=== PATIENT | female | born 2000 | race Caucasian/White ===

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

== ENCOUNTER 2020-07-25 00:40 | Emergency (ER) | payer OTHER, SELFPAY ==
[2020-07-25 00:41] VITALS: BP 140/82; PULSE 53; RESP 14; TEMP 37.1; O2SAT 99; BMI 27.3
--- NOTE | 2020-07-25 00:54 | CT_ITS ---
PROCEDURE INFORMATION: Exam: CT Abdomen And Pelvis With Contrast Exam date and time: 07/25/2020 12:54 AM Age: 19 years old Clinical indication: Abdominal pain; Localized; Patient HX: Lower abd pain TECHNIQUE: Imaging protocol: Computed tomography of the abdomen and pelvis with contrast. Radiation optimization: All CT scans at this facility use at least one of these dose optimization techniques: automated exposure control; mA and/or kV adjustment per patient size (includes targeted exams where dose is matched to clinical indication); or iterative reconstruction. Contrast material: ISOVUE; Contrast volume: 75 ml; Contrast route: IV; COMPARISON: US GALLBLADDER 06/29/2019 8:18 AM FINDINGS: Lungs: The visualized lung bases are clear. Pleural spaces: There are no pleural effusions. Heart: The visualized portions of the heart are unremarkable. There is no evidence of pericardial fluid collections. Liver: The liver demonstrates punctate calcifications, consistent with remote granulomatous organism exposure. There is diffuse decrease in hepatic parenchymal density consistent with fatty infiltration. There is a small region of focal fatty infiltration adjacent to the falciform ligament. Gallbladder and bile ducts: The gallbladder is normal. Pancreas: The pancreas is normal. Spleen: The spleen demonstrates punctate calcifications, consistent with remote granulomatous organism exposure. The spleen is at the upper limits of normal in size. Adrenal glands: The adrenal glands are normal. Kidneys and ureters: The kidneys are normal. Stomach and bowel: Unopacified loops of small bowel within range of normal. The stomach is normal. The duodenum is unremarkable. Lack of gastrointestinal contrast limits evaluation of bowel. The colon is normal. Appendix: No evidence of appendicitis. Intraperitoneal space: No evidence of intraperitoneal free air. There is no evidence of free intraperitoneal or pelvic fluid. Vasculature: There is no evidence of an abdominal aortic aneurysm. Lymph nodes: There are a few scattered small nonspecific lymph nodes in the mesenteric fat of the right lower quadrant and central mesentery, but there are no nodes of pathologic dimensions present. Urinary bladder: There is mild bladder wall thickening. Reproductive: The uterus is normal. The left ovary is normal. The right ovary is normal. Bones/joints: There is no evidence of acute fracture. Soft tissues: No soft tissue swelling is identified. IMPRESSION: 1. Fatty hepatic infiltration. 2. Minor bladder wall thickening suggesting incomplete distention, chronic outflow obstruction or cystitis. 3. A few scattered small nonspecific lymph nodes in the mesenteric fat of the right lower quadrant and central mesentery, but there are no nodes of pathologic dimensions present. Correlate clinically regarding the possibility of mesenteric adenitis.
--- NOTE | 2020-07-25 00:54 | HMH.EDNVD ---
ED Disposition Clinical Impression: Abdominal pain Qualifiers: Abdominal location: generalized Qualified Code(s): R10.84 - Generalized abdominal pain Disposition: Home, Self-Care Condition on Discharge: Good Instructions: DI for Acute Abdominal Pain Additional Instructions: fluids and call pcp for follow up Referrals: Leonie Jung [Primary Care Provider] - - Critical Care Critical Care Time: No Attestation: On 07/25/20, the high probability of a clinically significant, sudden or life threatening deterioration of the following system(s) required my full and direct attention, intervention and personal management. The time I documented below is in addition to time spent performing reported procedures but includes the following listed in this critical care notation. Medical Decision Making - Medical Records Medical records reviewed: Yes: I reviewed the patient's medical records. - Castillo Inquiry Pt receiving controlled substance: No Vital Signs: 07/25/20 00:41 07/25/20 01:00 Temperature 98.7 F Temperature Source Oral Pulse Rate 69 Pulse Rate [Right] 53 L Respiratory Rate 14 Blood Pressure 139/94 H Blood Pressure [Right Arm] 140/82 Blood Pressure Mean 109 Blood Pressure Mean [Right Arm] 101 02 Sat by Pulse Oximetry 99 100 - Lab Data Lab results reviewed: Yes: I reviewed the patient's lab results. Lab Results 07/25/20 00:50: Urine Color Yellow, Urine Appearance Clear, Urine pH 7.0, Ur Specific [place] 1.020, Urine Protein Negative, Urine Glucose (UA) Negative, Urine Ketones Negative, Urine Blood Negative, Urine Nitrate Negative, Urine Bilirubin Negative, Urine Urobilinogen 0.2, Ur Leukocyte Esterase Negative, Urine WBC Occasional, Ur Squamous Epith Cells 3-5, Amorphous Sediment 1+, Urine Bacteria 1+ 07/25/20 00:50: WBC 8.5, RBC 5.05, Hgb 14.8, Hct 44.1, MCV 87.4, MCH 29.3, MCHC 33.6, RDW 13.6, Plt Count 182, MPV 8.5, Neut % (Auto) 54.0, Lymph % (Auto) 40.3, [place] % (Auto) 3.4, Eos % (Auto) 1.7, Baso % (Auto) 0.6, Neut # (Auto) 4.6, Lymph # (Auto) 3.4, [place] # (Auto) 0.3, Eos # (Auto) 0.1, Baso # (Auto) 0.1, ESR 2 07/25/20 00:50: Urine HCG, Qual Negative 07/25/20 00:50: Sodium 139, Potassium 4.0, Chloride 106, Carbon Dioxide 28, Anion Gap 9.0, BUN 7, Creatinine 0.60, Estimated Creat Clear 172, Estimated GFR 129, Est GFR ( Amer) 156, Glucose 103 H, Calcium 9.2, Total Bilirubin 0.4, AST 20, ALT 11 L, Alkaline Phosphatase 47, C-Reactive Protein 1.0, Total Protein 7.3, Albumin 4.6, Globulin 2.7, Albumin/Globulin Ratio 1.7, Amylase 52, Lipase 154, Procalcitonin < 0.030 07/25/20 00:50: Urine Opiates Screen Negative, Urine Methadone Screen Negative, Ur Barbituates Screen Negative, Ur Phencyclidine Scrn Negative, Ur Amphetamines Screen Negative, U Benzodiazepines Scrn Negative, Urine Cocaine Screen Negative, U Marijuana (THC) Screen Positive H Result diagrams: 07/25/20 00:50 07/25/20 00:50 Orders (Tests/Meds): ED MEDICATIONS Generic Name Dose Route Start Last Admin Trade Name Freq PRN Reason Stop Dose Admin Sodium Chloride 1,000 mls @ 999 mls/hr 07/25/20 01:00 07/25/20 01:10 Sod Chlor 0.9% 1000ml Bag IV 07/25/20 02:00 999 mls/hr .Q1H1M BANG Administration Sodium Chloride 8 ml 07/25/20 00:55 Sodium Chloride 0.9% 10ml Vial IV 08/24/20 00:54 NEEDED PRN dilute pepcid Discontinued Medications Generic Name Dose Route Start Last Admin Trade Name Freq PRN Reason Stop Dose Admin Famotidine 20 mg 07/25/20 00:55 07/25/20 01:08 Famotidine 20mg/2ml Vial IV 07/25/20 00:56 20 mg ONCE ONE Administration Iopamidol 75 ml 07/25/20 01:39 07/25/20 01:40 Iopamidol-370 (76%);100ml Bottle IV 07/25/20 01:40 75 ml ONCE ONE Administration Ketorolac Tromethamine 30 mg 07/25/20 00:55 07/25/20 01:08 Ketorolac 30mg/Ml Vial IV 07/25/20 00:56 30 mg ONCE ONE Administration Metoclopramide HCl 10 mg 07/25/20 00:55 07/25/20 01:08 Metoclopramide Hcl 10
[2020-07-25 01:00] VITALS: BP 139/94; PULSE 69; O2SAT 100
[2020-07-25 01:00] LABS: Microscopic, Urine URINE MICROSCOPIC (MICROSCOPIC)
[2020-07-25 01:07] LABS: Appearance,Urine CLEAR (Clear); Bilirubin,Urine Negative (Negative); Blood, Urine Negative (Negative); Color,Urine YELLOW (Yellow); Glucose,Urine (UA) Negative (Negative); Ketones,Urine Negative (Negative); Leukocyte Esterase,Urine Negative (Negative); Nitrate,Urine Negative (Negative); Protein,Urine Negative (Negative); Urine Pregnancy, HCG Qual. Negative (Negative); Urobilinogen,Urine 0.2 EU/dl (0.2)
[2020-07-25 01:11] LABS: Alanine Aminotransferase 11 U/L (12-78); Albumin Level 4.6 g/dl (3.5-5.0); Albumin/Globulin Ratio 1.7 (1.1-1.8); Alkaline Phosphatase 47 U/L (38-126); Amylase 52 U/L (30-110); Aspartate Amino Transferase 20 U/L (14-36); Bilirubin,Total 0.4 mg/dl (0.2-1.3); Blood Urea Nitrogen 7 mg/dl (7-17); Calcium 9.2 mg/dl (8.4-10.2); Carbon Dioxide 28 mmol/L (22.0-30.0); Chloride 106 mmol/L (98-107); Creatinine Clearance Estimated 172 mL/min (50-200); Estimated Glomerular Filt Rate 129 ml/min (>60); GFR (African American) 156 ML/MIN (>60); Globulin 2.7 g/dL (1.3-3.2); Glucose 103 mg/dl (74-100); Lipase 154 U/L (23-300); Sodium 139 mmol/L (136-145); Total Protein,Serum 7.3 g/dl (6.3-8.2)
[2020-07-25 01:21] LABS: Barbiturates Screen,Urine Negative ng/ml (<200)
[2020-07-25 01:22] LABS: Benzodiazepines Screen,Urine Negative ng/ml (<200)
[2020-07-25 01:23] LABS: Amphetamine/Metha Screen,Urine Negative ng/ml (<1000); Cannabinoid Screen,Urine Positive ng/ml (<50)
[2020-07-25 01:24] LABS: Amorphous Sediment,Urine 1+ /lpf; Bacteria,Urine 1+ /lpf; Cocaine Screen,Urine Negative ng/ml (<300); WBC,Urine Occasional #/hpf (0-3)
[2020-07-25 01:25] LABS: Methadone Screen,Urine Negative ng/ml (<300); Opiate Screen,Urine Negative ng/ml (<300)
[2020-07-25 01:26] LABS: Basophils # 0.1 K/mm3 (0-0.2); Basophils % 0.6 % (0.1-2.0); Eosinophils # 0.1 K/mm3 (0.0-0.4); Eosinophils % 1.7 % (0.1-12.0); Hematocrit 44.1 % (37.0-47.0); Hemoglobin 14.8 g/dL (12.2-16.2); Lymphocytes # 3.4 K/mm3 (0.7-4.5); Lymphocytes % 40.3 % (10-50); Mean Corpuscular HGB Conc 33.6 g/dL (31.8-35.4); Mean Corpuscular Hemoglobin 29.3 pg (27.0-31.2); Mean Corpuscular Volume 87.4 fl (81-99); Mean Platelet Volume 8.5 fl (7.4-10.4); Monocytes # 0.3 K/mm3 (0.1-1.0); Monocytes % 3.4 % (1.7-9.3); Neutrophils # 4.6 K/mm3 (1.8-7.8); Phencyclidine Screen,Urine Negative ng/ml (<25); Platelet Count 182 K/mm3 (142-424); Red Blood Count 5.05 M/mm3 (4.20-5.40); Red Cell Distribution Width 13.6 % (11.5-17.5); White Blood Count 8.5 K/mm3 (4.5-13.0)
--- NOTE | 2020-07-25 01:36 | PC.NURSE ---
return from radiology at this time. no incidences noted
[2020-07-25 01:48] LABS: Erythrocyte Sedimentation Rate 2 mm/hr (0-20)
[2020-07-25 01:49] LABS: Procalcitonin < 0.030 ng/mL (0.0-2.0)
[2020-07-25 02:24] VITALS: BP 139/94; PULSE 69; RESP 14; TEMP 37.1; O2SAT 99
== END 2020-07-25 02:27 | disposition home or self-care (01) ==
PROVIDERS: Emergency Provider Emergency Medicine; PCP Family Medicine
DX: R10.84 Generalized abdominal pain (principal); F12.10 Cannabis abuse, uncomplicated
CPT/HCPCS: 74177; 80053; 80305; 81001; 81025; 82150; 83690; 84145; 85025; 85651; 86140; 96365; 96375; 99283; J2405; Q9967

== ENCOUNTER → 2020-08-10 16:38 | Outpatient (CLI) | payer OTHER, SELFPAY ==
[2020-08-10 17:51] LABS: HCG,Quantitative 15 mIU/ml (0-5.42)
== END ==
PROVIDERS: Visit Provider Obstetrics & Gynecology
DX: Z34.90 Encounter for supervision of normal pregnancy, unspecified, unspecified trimester (principal)
CPT/HCPCS: 84702

== ENCOUNTER → 2020-08-17 08:43 | Outpatient (CLI) | payer OTHER, SELFPAY ==
[2020-08-17 10:01] LABS: HCG,Quantitative 284 mIU/ml (0-5.42)
== END ==
PROVIDERS: Visit Provider Obstetrics & Gynecology
DX: Z34.90 Encounter for supervision of normal pregnancy, unspecified, unspecified trimester (principal)
CPT/HCPCS: 36415; 84702

== ENCOUNTER 2020-08-24 09:18 | Emergency (ER) | payer OTHER, SELFPAY ==
[2020-08-24 09:19] VITALS: BP 115/85; PULSE 75; RESP 16; TEMP 36.7; O2SAT 99; BMI 22.3
[2020-08-24 09:40] VITALS: BP 115/85; PULSE 75; RESP 16; TEMP 36.7; O2SAT 99
--- NOTE | 2020-08-24 09:54 | HMH.EDDIZZ ---
ED Disposition Clinical Impression: Dehydration during Disposition: Home, Self-Care Condition on Discharge: Good Instructions: DI for Dehydration -- Adult Additional Instructions: Return to the ED with any development of vomiting or abdominal pain. Recommend following up with [facility] within the next 2 weeks for establishment of care. Referrals: Leonie Jung [Primary Care Provider] - Time of Disposition: 11:28 - Critical Care Critical Care Time: No Attestation: On 08/24/20, the high probability of a clinically significant, sudden or life threatening deterioration of the following system(s) required my full and direct attention, intervention and personal management. The time I documented below is in addition to time spent performing reported procedures but includes the following listed in this critical care notation. Medical Decision Making - Medical Records Medical records reviewed: Yes: I reviewed the patient's medical records. - Castillo Inquiry Pt receiving controlled substance: No Vital Signs: 08/24/20 09:19 08/24/20 09:40 08/24/20 10:00 Temperature 98.0 F 98.0 F Temperature Source Oral Oral Pulse Rate 75 58 L Pulse Rate [Radial] 75 Respiratory Rate 16 16 18 Blood Pressure 115/85 124/76 Blood Pressure [Right Arm] 115/85 Blood Pressure Mean 85 Blood Pressure Mean [Right Arm] 95 02 Sat by Pulse Oximetry 99 99 97 Oxygen Delivery Method Room Air Room Air 08/24/20 10:30 08/24/20 11:00 Temperature Temperature Source Pulse Rate 48 L 52 L Pulse Rate [Radial] Respiratory Rate 19 18 Blood Pressure 130/69 135/77 Blood Pressure [Right Arm] Blood Pressure Mean 86 85 Blood Pressure Mean [Right Arm] 02 Sat by Pulse Oximetry 100 98 Oxygen Delivery Method - Lab Data Lab Results 08/24/20 09:41: Sodium 140, Potassium 4.3, Chloride 108 H, Carbon Dioxide 21 L, Anion Gap 15.3 H, BUN 8, Creatinine 0.50 L, Estimated Creat Clear 168, Estimated GFR 159, Est GFR ( Amer) 192, Glucose 98, Calcium 9.4, Total Bilirubin 0.8, AST 23, ALT 9 L, Alkaline Phosphatase 43, Total Protein 7.6, Albumin 4.9, Globulin 2.7, Albumin/Globulin Ratio 1.8 08/24/20 09:41: Serum HCG, Qual Positive 08/24/20 10:15: WBC 5.9, RBC 4.86, Hgb 14.7, Hct 42.8, MCV 88.0, MCH 30.3, MCHC 34.4, RDW 13.8, Plt Count 148, MPV 9.4, Neut % (Auto) 62.1, Lymph % (Auto) 32.7, [place] % (Auto) 3.2, Eos % (Auto) 1.9, Baso % (Auto) 0.3, Neut # (Auto) 3.7, Lymph # (Auto) 1.9, [place] # (Auto) 0.2, Eos # (Auto) 0.1, Baso # (Auto) 0.0 08/24/20 10:22: Urine Color Dk yellow, Urine Appearance Clear, Urine pH 7.5, Ur Specific [place] 1.025, Urine Protein 2+, Urine Glucose (UA) Negative, Urine Ketones Negative, Urine Blood Negative, Urine Nitrate Negative, Urine Bilirubin Negative, Urine Urobilinogen 1.0, Ur Leukocyte Esterase Negative 08/24/20 10:22: Urine HCG, Qual Positive Result diagrams: 08/24/20 10:15 08/24/20 09:41 Orders (Tests/Meds): ED MEDICATIONS Discontinued Medications Generic Name Dose Route Start Last Admin Trade Name Freq PRN Reason Stop Dose Admin Lactated Ringer's 1,000 mls @ 999 mls/hr 08/24/20 10:00 08/24/20 10:03 Lactated Ringer's 1000 Ml Bag IV 08/24/20 11:00 999 mls/hr .Q1H1M BANG Administration ORDERS Category Date Time Status Urinalysis and Microscopic Stat Lab 08/24/20 10:22 Results - ECG Data Tracing #1 I reviewed this ECG and interpreted as documented below: Normal sinus rhythm with a rate of 52 sinus bradycardia with normal [place] interval and appropriate QT segment with no ST segment changes or evidence of acute ischemia. - Reevaluation(s) Time: 11:27 Reevaluation #1: Patient symptoms improved feels better and is ready to go home. Medical Decision Narrative: Presents with presyncopal orthostatic dizziness with 2 episodes since last night. Patient is approximately 5 to 6 weeks . She is having no nausea or vomiting, abdominal pain, vaginal discharge or d
[2020-08-24 10:00] VITALS: BP 124/76; PULSE 58; RESP 18; O2SAT 97
--- NOTE | 2020-08-24 10:00 | ECG_ITS ---
APPROVED REPORT Exam: Resting ECG HR:52 bpm ECG Measurements Heart Rate 52 AXES SD 114 P 30 QRSd 94 QRS 51 QT 412 T 28 QTc 383 Conclusion Sinus bradycardia Otherwise normal ECG Electronically signed by : Moises Osborn, 08/24/2020 17:00:30
[2020-08-24 10:12] LABS: Sodium 140 mmol/L (136-145)
[2020-08-24 10:13] LABS: HCG Qualitative, Serum Positive (Negative); Potassium 4.3 mmoL/L (3.5-5.1)
[2020-08-24 10:15] LABS: Alanine Aminotransferase 9 U/L (12-78); Aspartate Amino Transferase 23 U/L (14-36); Blood Urea Nitrogen 8 mg/dl (7-17); Creatinine Clearance Estimated 168 mL/min (50-200); Estimated Glomerular Filt Rate 159 ml/min (>60); GFR (African American) 192 ML/MIN (>60)
[2020-08-24 10:16] LABS: Albumin Level 4.9 g/dl (3.5-5.0); Albumin/Globulin Ratio 1.8 (1.1-1.8); Alkaline Phosphatase 43 U/L (38-126); Bilirubin,Total 0.8 mg/dl (0.2-1.3); Calcium 9.4 mg/dl (8.4-10.2); Carbon Dioxide 21 mmol/L (22.0-30.0); Globulin 2.7 g/dL (1.3-3.2); Glucose 98 mg/dl (74-100); Total Protein,Serum 7.6 g/dl (6.3-8.2)
[2020-08-24 10:23] LABS: Basophils % 0.3 % (0.1-2.0); Eosinophils # 0.1 K/mm3 (0.0-0.4); Eosinophils % 1.9 % (0.1-12.0); Hematocrit 42.8 % (37.0-47.0); Hemoglobin 14.7 g/dL (12.2-16.2); Lymphocytes # 1.9 K/mm3 (0.7-4.5); Lymphocytes % 32.7 % (10-50); Mean Corpuscular HGB Conc 34.4 g/dL (31.8-35.4); Mean Corpuscular Hemoglobin 30.3 pg (27.0-31.2); Mean Platelet Volume 9.4 fl (7.4-10.4); Monocytes # 0.2 K/mm3 (0.1-1.0); Monocytes % 3.2 % (1.7-9.3); Neutrophils # 3.7 K/mm3 (1.8-7.8); Neutrophils % 62.1 % (37.0-80.0); Platelet Count 148 K/mm3 (142-424); Red Blood Count 4.86 M/mm3 (4.20-5.40); Red Cell Distribution Width 13.8 % (11.5-17.5); White Blood Count 5.9 K/mm3 (4.5-13.0)
[2020-08-24 10:28] LABS: Anion Gap 15.3 mEq/L (5-15); Chloride 108 mmol/L (98-107)
[2020-08-24 10:30] VITALS: BP 130/69; PULSE 48; RESP 19; O2SAT 100
[2020-08-24 10:33] LABS: Urine Pregnancy, HCG Qual. Positive (Negative)
[2020-08-24 11:00] VITALS: BP 135/77; PULSE 52; RESP 18; O2SAT 98
[2020-08-24 11:13] LABS: Microscopic, Urine URINE MICROSCOPIC (MICROSCOPIC)
[2020-08-24 11:17] LABS: Appearance,Urine CLEAR (Clear); Bilirubin,Urine Negative (Negative); Blood, Urine Negative (Negative); Color,Urine DK YELLOW (Yellow); Glucose,Urine (UA) Negative (Negative); Ketones,Urine Negative (Negative); Leukocyte Esterase,Urine Negative (Negative); Nitrate,Urine Negative (Negative); PH,Urine 7.5 (5.0-8.5); Protein,Urine 2+ (Negative); Specific Gravity, Urine 1.025 (1.005-1.030)
[2020-08-24 11:35] LABS: Squamous Epithelial Cell,Urine Occasional #/hpf (0-5)
[2020-08-24 12:24] VITALS: BP 135/88; PULSE 52; RESP 15; TEMP 36.8; O2SAT 98
== END 2020-08-24 12:28 | disposition home or self-care (01) ==
PROVIDERS: Emergency Provider Student in an Organized Health Care Education/Training Program; PCP Family Medicine
DX: O26.899 Other specified pregnancy related conditions, unspecified trimester (principal); E86.0 Dehydration; Z34.90 Encounter for supervision of normal pregnancy, unspecified, unspecified trimester; F12.10 Cannabis abuse, uncomplicated; R42 Dizziness and giddiness
CPT/HCPCS: 80053; 81001; 81025; 84703; 85025; 93005; 99282; 99283

== ENCOUNTER 2020-10-03 13:19 | Emergency (ER) | payer OTHER, SELFPAY ==
[2020-10-03 13:20] VITALS: BP 126/73; PULSE 72; RESP 16; TEMP 36.7; O2SAT 100; BMI 24.0
--- NOTE | 2020-10-03 13:35 | HMH.EDGENADL ---
ED Disposition Clinical Impression: Vomiting as reason for care in Disposition: Home, Self-Care Condition on Discharge: Good Instructions: DI for Diarrhea and Traveler's Diarrhea -- Adult, DI for Diarrhea and Traveler's Diarrhea -- Child, DI for Nausea -- Adult, DI for Nausea -- Child Additional Instructions: continue home meds . follow up with PCP. increase fluid intake. Retuen to ED if new symptoms or worsening of symptoms. Referrals: Leonie Jung [Primary Care Provider] - - Critical Care Critical Care Time: No Attestation: On , the high probability of a clinically significant, sudden or life threatening deterioration of the following system(s) required my full and direct attention, intervention and personal management. The time I documented below is in addition to time spent performing reported procedures but includes the following listed in this critical care notation. Medical Decision Making - Medical Records MR Comment: yovanny recieved one liter of IV fluid and general labs were ordered.no distress noted. abdominal exam was completely benign. - Castillo Inquiry Pt receiving controlled substance: No Castillo was queried for this patient: No Vital Signs: 10/03/20 13:20 Temperature 98.0 F Temperature Source Oral Pulse Rate [Right] 72 Respiratory Rate 16 Blood Pressure [Right Arm] 126/73 Blood Pressure Mean [Right Arm] 90 Blood Pressure Source [Right Arm] Automatic Cuff Blood Pressure Position [Right Arm] Sitting 02 Sat by Pulse Oximetry 100 Oxygen Delivery Method Room Air - Lab Data Lab Results 10/03/20 13:45: WBC 7.2, RBC 4.64, Hgb 14.1, Hct 40.1, MCV 86.5, MCH 30.5, MCHC 35.2, RDW 13.2, Plt Count 162, MPV 9.2, Neut % (Auto) 78.3, Lymph % (Auto) 18.9, [place] % (Auto) 2.5, Eos % (Auto) 0.1, Baso % (Auto) 0.2, Neut # (Auto) 5.6, Lymph # (Auto) 1.4, [place] # (Auto) 0.2, Eos # (Auto) 0.0, Baso # (Auto) 0.0 10/03/20 13:45: D-Dimer 0.26 10/03/20 13:45: Sodium 138, Potassium 3.8, Chloride 104, Carbon Dioxide 23, Anion Gap 14.8, BUN 5 L, Creatinine 0.40 L, Estimated Creat Clear 225, Estimated GFR 203, Est GFR ( Amer) 246, Glucose 89, Calcium 9.2, Total Bilirubin 0.7, AST 19, ALT 11 L, Alkaline Phosphatase 44, Total Protein 7.3, Albumin 4.6, Globulin 2.7, Albumin/Globulin Ratio 1.7 Result diagrams: 10/03/20 13:45 10/03/20 13:45 Orders (Tests/Meds): ED MEDICATIONS Generic Name Dose Route Start Last Admin Trade Name Freq PRN Reason Stop Dose Admin Sodium Chloride 1,000 mls @ 999 mls/hr 10/03/20 14:00 10/03/20 13:54 Sod Chlor 0.9% 1000ml Bag IV 10/03/20 15:00 999 mls/hr .Q1H1M BANG Administration Discontinued Medications Generic Name Dose Route Start Last Admin Trade Name Freq PRN Reason Stop Dose Admin Ondansetron HCl 4 mg 10/03/20 13:52 10/03/20 13:54 Ondansetron 4mg/2ml Vial IV 10/03/20 13:53 4 mg ONCE ONE Administration General Adult HPI - General Chief complaint: Nausea/Vomiting/Diarrhea Stated complaint: nausea, headache, possible dehydrated Time Seen by Provider: 10/03/20 13:35 Mode of Arrival: Ambulatory Limitations: No Limitations Description of Symptoms (Recalled from ER Triage Doc. by RN): patient states that she is 11 weeks with hyperemesis since the begining of her . patient states that this week has been the worse for emesis episodes and is now concerned with being dizzt and lightheaded that she may be getting dehydrated. - History of Present Illness HPI narrative: patient is 20 years old with 11 weeks . has chronic early day vomiting. thinks she is dehydrated. no fever. no diarrhea. this problem was addressed several times by her marketing production specialist. no abdominal pain. no discharge, no dysuria. - Related Data Home Medications Medication Instructions Recorded Confirmed Omeprazole 40 mg PO DAILY 07/25/20 07/25/20 vits no.126-ferrous fum tab PO 09/25/20 28 mg iron-folic acid 800 mcg tablet
[2020-10-03 14:07] LABS: Alanine Aminotransferase 11 U/L (12-78); Albumin Level 4.6 g/dl (3.5-5.0); Albumin/Globulin Ratio 1.7 (1.1-1.8); Alkaline Phosphatase 44 U/L (38-126); Anion Gap 14.8 mEq/L (5-15); Aspartate Amino Transferase 19 U/L (14-36); Bilirubin,Total 0.7 mg/dl (0.2-1.3); Blood Urea Nitrogen 5 mg/dl (7-17); Calcium 9.2 mg/dl (8.4-10.2); Carbon Dioxide 23 mmol/L (22.0-30.0); Chloride 104 mmol/L (98-107); Creatinine Clearance Estimated 225 mL/min (50-200); Estimated Glomerular Filt Rate 203 ml/min (>60); GFR (African American) 246 ML/MIN (>60); Globulin 2.7 g/dL (1.3-3.2); Glucose 89 mg/dl (74-100); Potassium 3.8 mmoL/L (3.5-5.1); Sodium 138 mmol/L (136-145); Total Protein,Serum 7.3 g/dl (6.3-8.2)
[2020-10-03 14:09] LABS: Basophils % 0.2 % (0.1-2.0); Eosinophils % 0.1 % (0.1-12.0); Hematocrit 40.1 % (37.0-47.0); Hemoglobin 14.1 g/dL (12.2-16.2); Lymphocytes # 1.4 K/mm3 (0.7-4.5); Lymphocytes % 18.9 % (10-50); Mean Corpuscular HGB Conc 35.2 g/dL (31.8-35.4); Mean Corpuscular Hemoglobin 30.5 pg (27.0-31.2); Mean Corpuscular Volume 86.5 fl (81-99); Mean Platelet Volume 9.2 fl (7.4-10.4); Monocytes # 0.2 K/mm3 (0.1-1.0); Monocytes % 2.5 % (1.7-9.3); Neutrophils # 5.6 K/mm3 (1.8-7.8); Neutrophils % 78.3 % (37.0-80.0); Platelet Count 162 K/mm3 (142-424); Red Blood Count 4.64 M/mm3 (4.20-5.40); Red Cell Distribution Width 13.2 % (11.5-17.5); White Blood Count 7.2 K/mm3 (4.5-13.0)
[2020-10-03 14:13] LABS: D-Dimer 0.26 ug/mL (0.0-0.5)
[2020-10-03 15:00] VITALS: BP 112/60; PULSE 75; RESP 16; TEMP 36.7; O2SAT 98
== END 2020-10-03 15:05 | disposition home or self-care (01) ==
PROVIDERS: Emergency Provider Internal Medicine; PCP Family Medicine
DX: O21.0 Mild hyperemesis gravidarum (principal); Z3A.11 11 weeks gestation of pregnancy; R51.9 Headache, unspecified
CPT/HCPCS: 80053; 85025; 85378; 96365; 99282; J2405

== ENCOUNTER → 2020-10-06 10:17 | Outpatient (CLI) | payer OTHER, SELFPAY ==
[2020-10-06 11:00] LABS: Basophils % 0.6 % (0.1-2.0); Eosinophils % 0.4 % (0.1-12.0); Hematocrit 39.9 % (37.0-47.0); Hemoglobin 14.1 g/dL (12.2-16.2); Lymphocytes # 2.1 K/mm3 (0.7-4.5); Lymphocytes % 33.7 % (10-50); Mean Corpuscular HGB Conc 35.4 g/dL (31.8-35.4); Mean Corpuscular Hemoglobin 30.3 pg (27.0-31.2); Mean Corpuscular Volume 85.6 fl (81-99); Mean Platelet Volume 9.6 fl (7.4-10.4); Monocytes # 0.2 K/mm3 (0.1-1.0); Monocytes % 2.9 % (1.7-9.3); Neutrophils # 3.9 K/mm3 (1.8-7.8); Neutrophils % 62.4 % (37.0-80.0); Platelet Count 152 K/mm3 (142-424); Red Blood Count 4.66 M/mm3 (4.20-5.40); Red Cell Distribution Width 12.9 % (11.5-17.5); White Blood Count 6.2 K/mm3 (4.5-13.0)
[2020-10-07 05:15] LABS: HIV Screen 4th Generation wRfx Non Reactive (Non Reactive)
[2020-10-07 07:30] LABS: Rubella Antibodies, IgG 1.22 index (Immune >0.99)
[2020-10-07 08:13] LABS: Hepatitis B Surface Antigen Negative (Negative); Hepatitis C Antibody <0.1 s/co ratio (0.0-0.9)
[2020-10-07 12:55] LABS: Rapid Plasma Reagin Ab Titer Non Reactive (NonRea<1:1)
[2020-10-10 10:25] LABS: Neisseria gonorrhoeae, NAA Negative (Negative)
== END ==
PROVIDERS: Visit Provider Obstetrics & Gynecology
DX: Z34.90 Encounter for supervision of normal pregnancy, unspecified, unspecified trimester (principal)
CPT/HCPCS: 36415; 85025; 86592; 86703; 86762; 86850; 87340; 87380; 87491; 87591; G0432

== ENCOUNTER 2020-10-17 06:27 | Emergency (ER) | payer OTHER, SELFPAY ==
[2020-10-17 06:28] VITALS: BP 129/80; PULSE 89; RESP 18; TEMP 36.9; O2SAT 99; BMI 23.9
[2020-10-17 06:45] LABS: Microscopic, Urine URINE MICROSCOPIC (MICROSCOPIC)
[2020-10-17 06:49] LABS: Appearance,Urine SL CLOUDY (Clear); Bilirubin,Urine Negative (Negative); Blood, Urine Negative (Negative); Color,Urine YELLOW (Yellow); Glucose,Urine (UA) Negative (Negative); Ketones,Urine Negative (Negative); Leukocyte Esterase,Urine Negative (Negative); Nitrate,Urine Negative (Negative); Protein,Urine Negative (Negative); Urobilinogen,Urine 0.2 EU/dl (0.2)
[2020-10-17 06:52] LABS: Basophils % 0.3 % (0.1-2.0); Eosinophils # 0.1 K/mm3 (0.0-0.4); Eosinophils % 1.7 % (0.1-12.0); Hematocrit 39.1 % (37.0-47.0); Hemoglobin 13.5 g/dL (12.2-16.2); Lymphocytes # 1.6 K/mm3 (0.7-4.5); Lymphocytes % 27.8 % (10-50); Mean Corpuscular HGB Conc 34.5 g/dL (31.8-35.4); Mean Corpuscular Hemoglobin 31.1 pg (27.0-31.2); Mean Corpuscular Volume 90.4 fl (81-99); Mean Platelet Volume 9.5 fl (7.4-10.4); Monocytes # 0.2 K/mm3 (0.1-1.0); Monocytes % 2.6 % (1.7-9.3); Neutrophils % 67.6 % (37.0-80.0); Platelet Count 143 K/mm3 (142-424); Red Blood Count 4.33 M/mm3 (4.20-5.40); Red Cell Distribution Width 12.9 % (11.5-17.5); White Blood Count 5.9 K/mm3 (4.5-13.0)
[2020-10-17 07:00] LABS: Chloride 107 mmol/L (98-107); Potassium 4.3 mmoL/L (3.5-5.1); Sodium 138 mmol/L (136-145)
[2020-10-17 07:03] LABS: Alanine Aminotransferase 10 U/L (12-78); Albumin Level 4.3 g/dl (3.5-5.0); Albumin/Globulin Ratio 1.7 (1.1-1.8); Alkaline Phosphatase 29 U/L (38-126); Anion Gap 14.3 mEq/L (5-15); Aspartate Amino Transferase 26 U/L (14-36); Bilirubin,Total 0.7 mg/dl (0.2-1.3); Blood Urea Nitrogen 4 mg/dl (7-17); Calcium 9.1 mg/dl (8.4-10.2); Carbon Dioxide 21 mmol/L (22.0-30.0); Creatinine Clearance Estimated 217 mL/min (50-200); Estimated Glomerular Filt Rate 203 ml/min (>60); GFR (African American) 246 ML/MIN (>60); Globulin 2.6 g/dL (1.3-3.2); Glucose 100 mg/dl (74-100); Total Protein,Serum 6.9 g/dl (6.3-8.2)
--- NOTE | 2020-10-17 07:04 | PC.NURSE ---
spoke with Neha @ [facility] for zofran dosage
--- NOTE | 2020-10-17 07:16 | HMH.EDPREG ---
ED Disposition Clinical Impression: Nausea and vomiting during Qualifiers: Weeks of gestation: 13 weeks Qualified Code(s): Z3A.13 - 13 weeks gestation of Disposition: Home, Self-Care Condition on Discharge: Good Instructions: DI for Hyperemesis Gravidarum Additional Instructions: call ob for follow up Referrals: Leonie Jung [Primary Care Provider] - Lianna Hubbard MD [Staff Physician] - - Critical Care Critical Care Time: No Attestation: On 10/17/20, the high probability of a clinically significant, sudden or life threatening deterioration of the following system(s) required my full and direct attention, intervention and personal management. The time I documented below is in addition to time spent performing reported procedures but includes the following listed in this critical care notation. Medical Decision Making - Medical Records Medical records reviewed: Yes: I reviewed the patient's medical records. - Castillo Inquiry Pt receiving controlled substance: No Vital Signs: 10/17/20 06:28 Temperature 98.4 F Temperature Source Oral Pulse Rate [Right] 89 Respiratory Rate 18 Blood Pressure [Right Arm] 129/80 Blood Pressure Mean [Right Arm] 96 02 Sat by Pulse Oximetry 99 - Lab Data Lab results reviewed: Yes: I reviewed the patient's lab results. Lab Results 10/17/20 06:34: Urine Color Yellow, Urine Appearance Sl cloudy, Urine pH 8.0, Ur Specific [place] 1.020, Urine Protein Negative, Urine Glucose (UA) Negative, Urine Ketones Negative, Urine Blood Negative, Urine Nitrate Negative, Urine Bilirubin Negative, Urine Urobilinogen 0.2, Ur Leukocyte Esterase Negative, Urine RBC None, Urine WBC 3-5, Ur Squamous Epith Cells 3-5, Urine Bacteria None 10/17/20 06:43: WBC 5.9, RBC 4.33, Hgb 13.5, Hct 39.1, MCV 90.4, MCH 31.1, MCHC 34.5, RDW 12.9, Plt Count 143, MPV 9.5, Neut % (Auto) 67.6, Lymph % (Auto) 27.8, [place] % (Auto) 2.6, Eos % (Auto) 1.7, Baso % (Auto) 0.3, Neut # (Auto) 4.0, Lymph # (Auto) 1.6, [place] # (Auto) 0.2, Eos # (Auto) 0.1, Baso # (Auto) 0.0 10/17/20 06:43: Sodium 138, Potassium 4.3, Chloride 107, Carbon Dioxide 21 L, Anion Gap 14.3, BUN 4 L, Creatinine 0.40 L, Estimated Creat Clear 217, Estimated GFR 203, Est GFR ( Amer) 246, Glucose 100, Calcium 9.1, Total Bilirubin 0.7, AST 26, ALT 10 L, Alkaline Phosphatase 29 L, Total Protein 6.9, Albumin 4.3, Globulin 2.6, Albumin/Globulin Ratio 1.7 Result diagrams: 10/17/20 06:43 10/17/20 06:43 Orders (Tests/Meds): ED MEDICATIONS Generic Name Dose Route Start Last Admin Trade Name Freq PRN Reason Stop Dose Admin Sodium Chloride 1,000 mls @ 999 mls/hr 10/17/20 06:45 10/17/20 06:46 Sod Chlor 0.9% 1000ml Bag IV 10/17/20 07:45 999 mls/hr .Q1H1M BANG Administration Discontinued Medications Generic Name Dose Route Start Last Admin Trade Name Freq PRN Reason Stop Dose Admin Ondansetron HCl 4 mg 10/17/20 06:48 10/17/20 06:49 Ondansetron 4mg/2ml Vial IV 10/17/20 06:49 4 mg ONCE ONE Administration ORDERS Category Date Time Status Beta HCG, Quant [HCG,Quantitative] Stat Lab 10/17/20 06:43 Received Medical Decision Narrative: pt with hyperemesis gravidium but has stable labs HPI - General Chief complaint: Nausea/Vomiting/Diarrhea Stated complaint: vomiting, 13 weeks Time Seen by Provider: 10/17/20 07:00 Mode of Arrival: Ambulatory Source of Information: Patient, Medical Record Limitations: No Limitations Description of Symptoms (Recalled from ER Triage Doc. by RN): pt states 13 weeks c/o N/v x 3 days - History of Present Illness HPI Narrative: 13 weeks with n/v MD Complaint: other (n/v) Onset (ago): day(s) Severity: moderate Associated symptoms: denies other symptoms Vaginal discharge: none Vaginal bleeding: none : Yes Date of Last Menstrual Period: 13 OrderAheadks - Related Data Home Medications Medication Instructions
--- NOTE | 2020-10-17 07:40 | PC.NURSE ---
IVFs infusing, pt resting comfortably & states she has some relief of nausea.
[2020-10-17 08:27] VITALS: BP 128/76; PULSE 74; RESP 14; TEMP 36.9; O2SAT 98
== END 2020-10-17 08:28 | disposition home or self-care (01) ==
PROVIDERS: Emergency Provider Emergency Medicine; PCP Family Medicine
DX: O21.0 Mild hyperemesis gravidarum (principal); Z3A.13 13 weeks gestation of pregnancy; F17.210 Nicotine dependence, cigarettes, uncomplicated
CPT/HCPCS: 80053; 81001; 84702; 85025; 96365; 96366; 96375; 99283; J2405

== ENCOUNTER 2020-12-17 15:18 | Outpatient (CLI) | payer OTHER, SELFPAY ==
[2020-12-17 15:46] VITALS: BP 117/69; PULSE 86; RESP 16; TEMP 36.7; O2SAT 99; BMI 24.0
[2020-12-17 16:01] LABS: Microscopic, Urine URINE MICROSCOPIC (MICROSCOPIC)
[2020-12-17 16:02] LABS: Appearance,Urine CLEAR (Clear); Bilirubin,Urine Negative (Negative); Blood, Urine Negative (Negative); Color,Urine YELLOW (Yellow); Glucose,Urine (UA) Negative (Negative); Ketones,Urine Negative (Negative); Leukocyte Esterase,Urine TRACE (Negative); Nitrate,Urine Negative (Negative); PH,Urine 6.5 (5.0-8.5); Protein,Urine Negative (Negative)
[2020-12-17 16:14] LABS: Amphetamine/Metha Screen,Urine Negative ng/ml (<1000)
[2020-12-17 16:15] LABS: Barbiturates Screen,Urine Negative ng/ml (<200)
[2020-12-17 16:16] LABS: Benzodiazepines Screen,Urine Negative ng/ml (<200); Cannabinoid Screen,Urine Negative ng/ml (<50)
[2020-12-17 16:17] LABS: Cocaine Screen,Urine Negative ng/ml (<300)
[2020-12-17 16:18] LABS: Methadone Screen,Urine Negative ng/ml (<300); Opiate Screen,Urine Negative ng/ml (<300)
[2020-12-17 16:19] LABS: Phencyclidine Screen,Urine Negative ng/ml (<25)
== END 2020-12-17 16:05 | disposition home or self-care (01) ==
LOC: OBOUT 15:21 → OB 15:23
PROVIDERS: PCP Family Medicine; Visit Provider Nurse Practitioner Obstetrics & Gynecology
DX: O36.8120 Decreased fetal movements, second trimester, not applicable or unspecified (principal); Z3A.20 20 weeks gestation of pregnancy
CPT/HCPCS: 59025; 80305; 81001; G0463

== ENCOUNTER → 2021-01-25 15:10 | Outpatient (CLI) | payer OTHER, SELFPAY | PROVIDERS: PCP Family Medicine; Visit Provider Nurse Practitioner | DX: Z20.822 Contact with and (suspected) exposure to COVID-19 (principal) | CPT/HCPCS: C9803; U0003; U0005 ==

== ENCOUNTER → 2021-01-29 08:32 | Outpatient (CLI) | payer OTHER, SELFPAY ==
[2021-01-29 09:10] LABS: Basophils # 0.1 K/mm3 (0-0.2); Basophils % 0.9 % (0.1-2.0); Eosinophils % 0.4 % (0.1-12.0); Hematocrit 34.6 % (37.0-47.0); Hemoglobin 12.2 g/dL (12.2-16.2); Lymphocytes # 1.7 K/mm3 (0.7-4.5); Lymphocytes % 19.9 % (10-50); Mean Corpuscular HGB Conc 35.2 g/dL (31.8-35.4); Mean Corpuscular Hemoglobin 30.6 pg (27.0-31.2); Monocytes # 0.2 K/mm3 (0.1-1.0); Monocytes % 2.8 % (1.7-9.3); Neutrophils # 6.4 K/mm3 (1.8-7.8); Neutrophils % 76.1 % (37.0-80.0); Platelet Count 149 K/mm3 (142-424); Red Blood Count 3.98 M/mm3 (4.20-5.40); Red Cell Distribution Width 13.2 % (11.5-17.5); White Blood Count 8.4 K/mm3 (4.5-13.0)
[2021-01-29 09:24] LABS: Glucose,Fasting 90 mg/dl (74-100)
[2021-01-29 10:56] LABS: Glucose 1 Hour 91 mg/dL (74-100)
== END ==
PROVIDERS: Visit Provider Obstetrics & Gynecology
DX: Z34.90 Encounter for supervision of normal pregnancy, unspecified, unspecified trimester (principal)
CPT/HCPCS: 36415; 82951; 85025

== ENCOUNTER 2021-02-03 11:07 | Outpatient (CLI) | payer OTHER, SELFPAY ==
[2021-02-03 11:19] VITALS: BMI 26.4
[2021-02-03 11:39] LABS: Microscopic, Urine URINE MICROSCOPIC (MICROSCOPIC)
[2021-02-03 11:42] LABS: Appearance,Urine CLEAR (Clear); Bilirubin,Urine Negative (Negative); Blood, Urine Negative (Negative); Color,Urine YELLOW (Yellow); Glucose,Urine (UA) Negative (Negative); Ketones,Urine Negative (Negative); Leukocyte Esterase,Urine TRACE (Negative); Nitrate,Urine Negative (Negative); PH,Urine 6.5 (5.0-8.5); Protein,Urine Negative (Negative); Specific Gravity, Urine 1.025 (1.005-1.030)
[2021-02-03 12:13] VITALS: BP 116/72; PULSE 85; RESP 18; TEMP 36.8; O2SAT 96; BMI 26.4
[2021-02-03 12:20] LABS: Squamous Epithelial Cell,Urine Occasional #/hpf (0-5)
[2021-02-03 12:36] LABS: Barbiturates Screen,Urine Negative ng/ml (<200)
[2021-02-03 12:37] LABS: Benzodiazepines Screen,Urine Negative ng/ml (<200)
[2021-02-03 12:38] LABS: Amphetamine/Metha Screen,Urine Negative ng/ml (<1000); Cannabinoid Screen,Urine Negative ng/ml (<50)
[2021-02-03 12:39] LABS: Cocaine Screen,Urine Negative ng/ml (<300); Methadone Screen,Urine Negative ng/ml (<300)
[2021-02-03 12:40] LABS: Opiate Screen,Urine Negative ng/ml (<300)
[2021-02-03 12:41] LABS: Phencyclidine Screen,Urine Negative ng/ml (<25)
[2021-02-03 12:55] LABS: Fetal Fibronectin (Rapid) Positive (Negative)
== END 2021-02-03 13:18 | disposition home or self-care (01) ==
LOC: OBOUT 11:09 → OB 11:11
PROVIDERS: PCP Family Medicine; Visit Provider Obstetrics & Gynecology
DX: O26.893 Other specified pregnancy related conditions, third trimester (principal); Z3A.28 28 weeks gestation of pregnancy
CPT/HCPCS: 59025; 80305; 81001; 82731; G0463

== ENCOUNTER 2021-02-19 09:33 | Outpatient (CLI) | payer OTHER, SELFPAY ==
[2021-02-19 09:51] VITALS: BMI 27.1
[2021-02-19 09:56] VITALS: BP 123/79; PULSE 111; RESP 16; TEMP 37.1; O2SAT 100; BMI 27.1
[2021-02-19 10:04] LABS: Microscopic, Urine URINE MICROSCOPIC (MICROSCOPIC)
[2021-02-19 10:05] LABS: Appearance,Urine CLEAR (Clear); Bilirubin,Urine Negative (Negative); Blood, Urine Negative (Negative); Color,Urine YELLOW (Yellow); Glucose,Urine (UA) Negative (Negative); Ketones,Urine TRACE (Negative); Leukocyte Esterase,Urine 1+ (Negative); Nitrate,Urine Negative (Negative); Protein,Urine TRACE (Negative); Specific Gravity, Urine 1.025 (1.005-1.030)
[2021-02-19 10:09] LABS: Bacteria,Urine Trace /lpf; RBC,Urine Occasional #/hpf (0-3)
[2021-02-19 10:16] LABS: Benzodiazepines Screen,Urine Negative ng/ml (<200)
[2021-02-19 10:17] LABS: Amphetamine/Metha Screen,Urine Negative ng/ml (<1000)
[2021-02-19 10:18] LABS: Barbiturates Screen,Urine Negative ng/ml (<200); Cannabinoid Screen,Urine Negative ng/ml (<50)
[2021-02-19 10:19] LABS: Cocaine Screen,Urine Negative ng/ml (<300); Methadone Screen,Urine Negative ng/ml (<300)
[2021-02-19 10:20] LABS: Opiate Screen,Urine Negative ng/ml (<300)
[2021-02-19 10:21] LABS: Phencyclidine Screen,Urine Negative ng/ml (<25)
== END 2021-02-19 12:03 | disposition home or self-care (01) ==
LOC: OBOUT 09:34 → OB 09:35
PROVIDERS: PCP Family Medicine; Visit Provider Nurse Practitioner Obstetrics & Gynecology
DX: O26.893 Other specified pregnancy related conditions, third trimester (principal); Z3A.30 30 weeks gestation of pregnancy; R51.9 Headache, unspecified; R11.2 Nausea with vomiting, unspecified
CPT/HCPCS: 59025; 80305; 81001; 87086; 96365; 96367; G0463; J2405

== ENCOUNTER → 2021-02-21 08:11 | Outpatient (CLI) | payer OTHER, SELFPAY | PROVIDERS: Visit Provider Nurse Practitioner | DX: U07.1 COVID-19 (principal) | CPT/HCPCS: C9803; U0003; U0005 ==

== ENCOUNTER 2021-03-05 17:51 | Observation (INO) | payer OTHER, SELFPAY ==
--- NOTE | 2021-03-05 15:29 | US_ITS ---
FINAL REPORT CLINICAL HISTORY: BPP; vaginal bleeding with COMPARISON: Sonographic imaging was obtained for biophysical profile. FINDINGS: A single, living intrauterine is identified. Biophysical profile is 88, normal. CECILLE is 14.3, normal. Heart rate is detected at 149 bpm. Mean gestational age is 32 weeks 6 days. Fetus is in cephalic position. IMPRESSION: Biophysical profile, 10/01. Normal CECILLE. Reviewed, Interpreted and Dictated by Zach Martini III, MD Transcribed by Conchita West Authenticated by Zach Martini III, MD on 03/05/2021 04:56:24 PM [facility]
--- NOTE | 2021-03-05 15:29 | US_ITS ---
FINAL REPORT TECHNIQUE: Sonographic imaging of the pelvis was obtained. CLINICAL HISTORY: vaginal bleeding during FINDINGS: Cervix measures 4.0 cm. There is no funneling. IMPRESSION: No cervical funneling. Reviewed, Interpreted and Dictated by Zach Martini III, MD Transcribed by Conchita West Authenticated by Zach Martini III, MD on 03/05/2021 04:56:26 PM [facility]
[2021-03-05 16:25] VITALS: BMI 28.8
[2021-03-05 16:43] VITALS: BP 136/87; PULSE 71; RESP 18; TEMP 36.8; O2SAT 100; BMI 28.8
[2021-03-05 16:57] LABS: Influenza A, PCR Not Detected (NotDetected); Influenza B, PCR Not Detected (NotDetected)
[2021-03-05 17:16] LABS: Fetal Membrane Rupture (Rapid) Negative (Negative)
[2021-03-05 17:37] LABS: Coronavirus 19, PCR Detected (NotDetected)
[2021-03-05 18:19] LABS: Basophils # 0.1 K/mm3 (0-0.2); Basophils % 0.6 % (0.1-2.0); Eosinophils % 0.3 % (0.1-12.0); Hematocrit 39.3 % (37.0-47.0); Hemoglobin 13.1 g/dL (12.2-16.2); Lymphocytes # 1.9 K/mm3 (0.7-4.5); Lymphocytes % 20.8 % (10-50); Mean Corpuscular HGB Conc 33.4 g/dL (31.8-35.4); Mean Corpuscular Hemoglobin 29.9 pg (27.0-31.2); Mean Corpuscular Volume 89.6 fl (81-99); Mean Platelet Volume 10.2 fl (7.4-10.4); Monocytes # 0.3 K/mm3 (0.1-1.0); Monocytes % 2.8 % (1.7-9.3); Neutrophils % 75.6 % (37.0-80.0); Platelet Count 172 K/mm3 (142-424); Red Blood Count 4.38 M/mm3 (4.20-5.40); Red Cell Distribution Width 13.3 % (11.5-17.5); White Blood Count 9.3 K/mm3 (4.5-13.0)
[2021-03-05 18:29] LABS: Anion Gap 9.5 mEq/L (5-15); Blood Urea Nitrogen 6 mg/dl (7-17); Carbon Dioxide 25 mmol/L (22.0-30.0); Chloride 103 mmol/L (98-107); Creatinine Clearance Estimated 270 mL/min (50-200); Estimated Glomerular Filt Rate 203 ml/min (>60); GFR (African American) 246 ML/MIN (>60); Glucose 83 mg/dl (74-100); Potassium 3.5 mmoL/L (3.5-5.1); Sodium 134 mmol/L (136-145)
[2021-03-05 18:39] LABS: Microscopic, Urine URINE MICROSCOPIC (MICROSCOPIC)
[2021-03-05 18:59] LABS: Appearance,Urine CLEAR (Clear); Bilirubin,Urine Negative (Negative); Blood, Urine 3+ (Negative); Color,Urine YELLOW (Yellow); Glucose,Urine (UA) Negative (Negative); Ketones,Urine Negative (Negative); Leukocyte Esterase,Urine TRACE (Negative); Nitrate,Urine Negative (Negative); Protein,Urine Negative (Negative); Specific Gravity, Urine 1.025 (1.005-1.030); Urobilinogen,Urine 0.2 EU/dl (0.2)
[2021-03-05 19:15] LABS: Amphetamine/Metha Screen,Urine Negative ng/ml (<1000); Barbiturates Screen,Urine Negative ng/ml (<200)
[2021-03-05 19:16] LABS: Benzodiazepines Screen,Urine Negative ng/ml (<200)
[2021-03-05 19:17] LABS: Cannabinoid Screen,Urine Negative ng/ml (<50); Cocaine Screen,Urine Negative ng/ml (<300)
[2021-03-05 19:18] LABS: Methadone Screen,Urine Negative ng/ml (<300)
[2021-03-05 19:19] LABS: Opiate Screen,Urine Negative ng/ml (<300); Phencyclidine Screen,Urine Negative ng/ml (<25)
[2021-03-05 19:40] VITALS: BP 145/82; PULSE 68; RESP 18; TEMP 36.7; O2SAT 100
[2021-03-06 04:50] VITALS: BP 130/87; PULSE 63; RESP 18; TEMP 36.7; O2SAT 100
[2021-03-06 07:35] VITALS: BP 136/84; PULSE 69; RESP 18; TEMP 36.9; O2SAT 100
--- NOTE | 2021-03-06 11:17 | HMH.HPDC ---
General - General Admission date:: 03/05/21 Discharge date: 03/06/21 *Admission Date: 03/05/21 *Chief complaint: vaginal bleeding *History of present illness: 20 yo She was seen in office 03/05/21 with complaint of decreased movement, and reported some leakage of fluid on the evening of 03/04/21. Upon arrival to the office, she had some moderate vaginal bleeding and was sent for evaluation with ultrasound No evidence of abruption was seen on ultrasound, and BPP 8 She was sent to L & D where amnisure was performed and negative No contractions were noted on tocometer and status was reassuring on NST She was admitted for observation overnight with close monitoring of maternal and status Hgb stable 13.1 [facility] History I have reviewed the patient's past medical history: Yes *Have you ever received a pneumonia vaccine?: No *Have you received a flu vaccine this season?: No Laterality Cases: Bilateral: Myringotomy (Ear Tubes), Tonsillectomy Other Surgeries: No: Amputation: No Fractures: No - *Social History Smoking Status: Current every day smoker Alcohol Intake: never Substance Use Type: marijuana *Occupational Status:: employed Housing: other Household Members: other *Travel in the last 8 weeks: None Family Hx:: Cancer, Diabetes, Heart Attack, Hypertension, Hyperlipidemia, Stroke, Mental illness, Asthma Para: 1 Review of Systems - Review of Systems Review of systems:: pertinent systems reviewed and negative unless documented below - *Genitourinary Reports abnormal vaginal bleeding Exam Vital signs and Labs for Last 24 Hours: Temp Pulse Resp BP Pulse Ox 98.4 F 69 18 136/84 100 03/06/21 07:35 03/06/21 07:35 03/06/21 07:35 03/06/21 07:35 03/06/21 07:35 Laboratory Results - last 24 hr 03/05/21 16:00: Membrane Rupture Negative 03/05/21 16:26: SARS-CoV-2 (PCR) Detected A, Influenza A Untype (PCR) Not detected, Influenza Type B (PCR) Not detected 03/05/21 17:50: Urine Color Yellow, Urine Appearance Clear, Urine pH 7.0, Ur Specific [place] 1.025, Urine Protein Negative, Urine Glucose (UA) Negative, Urine Ketones Negative, Urine Blood 3+, Urine Nitrate Negative, Urine Bilirubin Negative, Urine Urobilinogen 0.2, Ur Leukocyte Esterase Trace, Urine RBC 5-10, Urine WBC 5-10, Ur Squamous Epith Cells 3-5, Urine Bacteria None 03/05/21 17:50: Urine Opiates Screen Negative, Urine Methadone Screen Negative, Ur Barbituates Screen Negative, Ur Phencyclidine Scrn Negative, Ur Amphetamines Screen Negative, U Benzodiazepines Scrn Negative, Urine Cocaine Screen Negative, U Marijuana (THC) Screen Negative 03/05/21 18:10: WBC 9.3, RBC 4.38, Hgb 13.1, Hct 39.3, MCV 89.6, MCH 29.9, MCHC 33.4, RDW 13.3, Plt Count 172, MPV 10.2, Neut % (Auto) 75.6, Lymph % (Auto) 20.8, [place] % (Auto) 2.8, Eos % (Auto) 0.3, Baso % (Auto) 0.6, Neut # (Auto) 7.0, Lymph # (Auto) 1.9, [place] # (Auto) 0.3, Eos # (Auto) 0.0, Baso # (Auto) 0.1 03/05/21 18:10: Sodium 134 L, Potassium 3.5, Chloride 103, Carbon Dioxide 25, Anion Gap 9.5, BUN 6 L, Creatinine 0.40 L, Estimated Creat Clear 270, Estimated GFR 203, Est GFR ( Amer) 246, Glucose 83, Calcium 9.0 I & O for Last 24 hours: Intake & Output 03/03/21 03/04/21 03/05/21 03/06/21 11:59 11:59 11:59 11:59 Weight 168 lb - Constitutional no acute distress - *Routine HEENT Exam Head: Present: normocephalic Eye: Present: EOMI ENT: Present: mucous membranes moist - *Routine Neck Exam Present: supple. Absent: lymphadenopathy - *Routine Respiratory Exam Present: CTA bilaterally - *Routine Cardiovascular Exam Present: RRR - *Routine Abdominal Exam Present: soft, normoactive bowel sounds. Absent: tenderness - *Routine Rectal Exam Rectal:: deferred - *Routine Genitalia Exam Genitalia:: normal female Comment:: + blood vag vault on SSE - *Routine Extremities Exam Absent: cyanosis, clubbing, edema - *Routine Skin Exam Present: warm. A
== END 2021-03-06 11:41 | disposition home or self-care (01) ==
LOC: RAD 17:53 → OB 17:53
PROVIDERS: Admitting Provider Obstetrics & Gynecology; PCP Family Medicine; Visit Provider Obstetrics & Gynecology
DX: O46.93 Antepartum hemorrhage, unspecified, third trimester (principal); Z87.59 Personal history of other complications of pregnancy, childbirth and the puerperium; Z3A.32 32 weeks gestation of pregnancy
CPT/HCPCS: 36415; 59025; 76817; 76819; 80048; 80305; 81001; 84112; 85025; 96365; C9803; G0378; G0463; U0003; U0005

== ENCOUNTER → 2021-03-13 14:17 | Outpatient (CLI) | payer OTHER, SELFPAY ==
--- NOTE | 2021-03-13 14:20 | US_ITS ---
FINAL REPORT CLINICAL HISTORY: Bpp-- fu-- hx of labor COMPARISON: 03/05/2021 FINDINGS: A biophysical profile was performed. There is a single living uterine with approximately 33 weeks 6 day gestation. Heartbeat is detected at 148 bpm. The placenta is anterior. The presentation is cephalic. Amniotic fluid is 10. Breathin/2 Movement: 2/2 Tone: 2/2 Fluid volume: 2/2 IMPRESSION: Single living intrauterine with approximately 33 week, 6 day gestation. Biophysical profile score is 8/8, normal. Reviewed, Interpreted and Dictated by Zach Martini III, MD Transcribed by Karli Bell Authenticated by Zach Martini III, MD on 03/13/2021 03:45:52 PM [facility]
== END ==
PROVIDERS: PCP Family Medicine; Visit Provider Obstetrics & Gynecology
DX: O46.90 Antepartum hemorrhage, unspecified, unspecified trimester (principal); Z87.59 Personal history of other complications of pregnancy, childbirth and the puerperium
CPT/HCPCS: 76819

== ENCOUNTER → 2021-03-20 13:53 | Outpatient (CLI) | payer OTHER, SELFPAY ==
--- NOTE | 2021-03-20 13:53 | US_ITS ---
FINAL REPORT CLINICAL HISTORY: BPP-- labor-- fu FINDINGS: There is a single live intrauterine gestation. Presentation is cephalic. The cervix is closed and measures 3.3 cm. Placenta is anterior fundal grade 3. Cardiac activity is confirmed at 149 bpm. CECILLE: 12.4 cm Visualized anatomy is unremarkable. BREATHIN MOVEMENT: 2 TONE: 2 FLUID VOLUME: 2 BPP SCORE: 8 IMPRESSION: Single living IUP with an gestational age of 34 weeks 2 days days. BPP SCORE: 8 Reviewed, Interpreted and Dictated by Roberto Evans MD Transcribed by Karli Bell Authenticated by Roberto Evans MD on 03/20/2021 03:43:52 PM [facility]
== END ==
PROVIDERS: PCP Family Medicine; Visit Provider Obstetrics & Gynecology
DX: Z34.90 Encounter for supervision of normal pregnancy, unspecified, unspecified trimester (principal)
CPT/HCPCS: 76819

== ENCOUNTER 2021-03-22 06:43 | Outpatient (CLI) | payer OTHER, SELFPAY ==
[2021-03-22 07:20] VITALS: BMI 29.5
[2021-03-22 07:30] LABS: Microscopic, Urine URINE MICROSCOPIC (MICROSCOPIC)
[2021-03-22 07:33] LABS: Appearance,Urine CLEAR (Clear); Bilirubin,Urine Negative (Negative); Blood, Urine Negative (Negative); Color,Urine YELLOW (Yellow); Glucose,Urine (UA) Negative (Negative); Ketones,Urine Negative (Negative); Leukocyte Esterase,Urine 1+ (Negative); Nitrate,Urine Negative (Negative); Protein,Urine TRACE (Negative); Specific Gravity, Urine 1.025 (1.005-1.030)
[2021-03-22 07:50] VITALS: BP 147/97; PULSE 86; RESP 20; TEMP 36.8; O2SAT 99; BMI 29.5
[2021-03-22 08:14] LABS: Bacteria,Urine Trace /lpf
[2021-03-22 08:45] LABS: Benzodiazepines Screen,Urine Negative ng/ml (<200)
[2021-03-22 08:46] LABS: Amphetamine/Metha Screen,Urine Negative ng/ml (<1000)
[2021-03-22 08:47] LABS: Barbiturates Screen,Urine Negative ng/ml (<200); Methadone Screen,Urine Negative ng/ml (<300)
[2021-03-22 08:48] LABS: Cannabinoid Screen,Urine Negative ng/ml (<50); Cocaine Screen,Urine Negative ng/ml (<300)
[2021-03-22 08:49] LABS: Opiate Screen,Urine Negative ng/ml (<300)
[2021-03-22 08:50] LABS: Phencyclidine Screen,Urine Negative ng/ml (<25)
== END 2021-03-22 08:40 | disposition home or self-care (01) ==
LOC: OBOUT 06:44 → OB 06:46
PROVIDERS: PCP Family Medicine; Referring Provider Obstetrics & Gynecology; Visit Provider Nurse Practitioner Obstetrics & Gynecology
DX: O36.8130 Decreased fetal movements, third trimester, not applicable or unspecified (principal); Z3A.34 34 weeks gestation of pregnancy; M54.50 Low back pain, unspecified
CPT/HCPCS: 59025; 80305; 81001; 87086; G0463

== ENCOUNTER 2021-03-26 12:24 | Outpatient (CLI) | payer OTHER, SELFPAY ==
[2021-03-26 12:34] VITALS: BMI 29.2
[2021-03-26 12:40] VITALS: BP 135/87; PULSE 90; RESP 18; TEMP 36.7; O2SAT 99; BMI 29.2
[2021-03-26 14:02] LABS: Microscopic, Urine URINE MICROSCOPIC (MICROSCOPIC)
[2021-03-26 14:05] LABS: Appearance,Urine CLEAR (Clear); Bilirubin,Urine Negative (Negative); Blood, Urine Negative (Negative); Color,Urine YELLOW (Yellow); Glucose,Urine (UA) Negative (Negative); Ketones,Urine Negative (Negative); Leukocyte Esterase,Urine 1+ (Negative); Nitrate,Urine Negative (Negative); Protein,Urine 1+ (Negative); Specific Gravity, Urine 1.025 (1.005-1.030)
[2021-03-26 14:19] LABS: Barbiturates Screen,Urine Negative ng/ml (<200); Benzodiazepines Screen,Urine Negative ng/ml (<200)
[2021-03-26 14:20] LABS: Amphetamine/Metha Screen,Urine Negative ng/ml (<1000)
[2021-03-26 14:21] LABS: Cannabinoid Screen,Urine Negative ng/ml (<50); Methadone Screen,Urine Negative ng/ml (<300)
[2021-03-26 14:22] LABS: Cocaine Screen,Urine Negative ng/ml (<300); Opiate Screen,Urine Negative ng/ml (<300)
[2021-03-26 14:23] LABS: Phencyclidine Screen,Urine Negative ng/ml (<25)
[2021-03-26 14:39] LABS: Bacteria,Urine 2+ /lpf
== END 2021-03-26 14:45 | disposition home or self-care (01) ==
LOC: OBOUT 12:26 → OB 12:27
PROVIDERS: Obstetrics & Gynecology; PCP Family Medicine; Visit Provider Nurse Practitioner Obstetrics & Gynecology
DX: O26.893 Other specified pregnancy related conditions, third trimester (principal); Z3A.35 35 weeks gestation of pregnancy; R51.9 Headache, unspecified; H53.8 Other visual disturbances
CPT/HCPCS: 59025; 80305; 81001; 87086; 87088; 87186; G0463

== ENCOUNTER → 2021-03-27 16:31 | Outpatient (CLI) | payer OTHER, SELFPAY | PROVIDERS: Visit Provider Obstetrics & Gynecology | DX: Z34.90 Encounter for supervision of normal pregnancy, unspecified, unspecified trimester (principal) | CPT/HCPCS: 86403 ==

== ENCOUNTER → 2021-03-29 09:40 | Outpatient (CLI) | payer OTHER, SELFPAY ==
--- NOTE | 2021-03-29 09:54 | US_ITS ---
FINAL REPORT CLINICAL HISTORY: preeclampsia-- fu prev FINDINGS: BIOPHYSICAL PROFILE W/O NON-STRESS There is a single live intrauterine gestation. Presentation is cephalic. The cervix is closed and measures 2.8 cm. The placenta is anterior. Cardiac activity is confirmed at 134 bpm. CECILLE is 12.5, normal. BREATHIN MOVEMENT: 2 TONE: 2 FLUID VOLUME: 2 BPP SCORE: 8 IMPRESSION: Single living IUP with a gestational age of 35 weeks 4 days. BPP SCORE: 8, normal. Reviewed, Interpreted and Dictated by Zach Martini III, MD Transcribed by Sheryl Mckeon Authenticated by Zach Martini III, MD on 03/29/2021 11:42:[address] [facility]
[2021-03-29 10:08] LABS: Basophils # 0.1 K/mm3 (0-0.2); Basophils % 1.1 % (0.1-2.0); Eosinophils # 0.2 K/mm3 (0.0-0.4); Eosinophils % 1.6 % (0.1-12.0); Hematocrit 38.1 % (37.0-47.0); Hemoglobin 12.6 g/dL (12.2-16.2); Lymphocytes # 1.3 K/mm3 (0.7-4.5); Lymphocytes % 12.2 % (10-50); Mean Corpuscular Hemoglobin 29.9 pg (27.0-31.2); Mean Corpuscular Volume 90.6 fl (81-99); Mean Platelet Volume 11.4 fl (7.4-10.4); Monocytes # 0.2 K/mm3 (0.1-1.0); Monocytes % 2.1 % (1.7-9.3); Neutrophils # 8.8 K/mm3 (1.8-7.8); Neutrophils % 83.1 % (37.0-80.0); Platelet Count 126 K/mm3 (142-424); Red Blood Count 4.21 M/mm3 (4.20-5.40); Red Cell Distribution Width 14.4 % (11.5-17.5); White Blood Count 10.6 K/mm3 (4.5-13.0)
[2021-03-29 10:19] LABS: Activated Partial Thrombo Time 24.1 seconds (22.8-30.6); Fibrinogen 311 mg/dL (229.9-363.5); INR 0.87 (0.9-1.1); Prothrombin Time 9.9 seconds (10.1-12.5)
[2021-03-29 10:24] LABS: D-Dimer 1.13 ug/mL (0.0-0.5)
[2021-03-29 10:48] LABS: Alanine Aminotransferase 12 U/L (12-78); Anion Gap 9.9 mEq/L (5-15); Aspartate Amino Transferase 25 U/L (14-36); Blood Urea Nitrogen 9 mg/dl (7-17); Calcium 8.9 mg/dl (8.4-10.2); Carbon Dioxide 22 mmol/L (22.0-30.0); Chloride 107 mmol/L (98-107); Estimated Glomerular Filt Rate 203 ml/min (>60); GFR (African American) 246 ML/MIN (>60); Glucose 102 mg/dl (74-100); Potassium 3.9 mmoL/L (3.5-5.1); Sodium 135 mmol/L (136-145)
[2021-03-29 11:21] LABS: Collection Time,Urine 24 hours; Patient Height,Urine 65 inches; Patient Weight,Urine 175 lbs; Total Volume,Urine 900 mL (600-1600)
[2021-03-29 12:33] LABS: Creatinine 24 Hour,Urine 1494 mg/24hr (630-2500)
[2021-03-29 12:45] LABS: Creatinine Clearance Urine 240.9 mL/min (25-115); Creatinine,Urine Random 166 mg/dL (Not Estab.)
[2021-03-29 15:24] LABS: Total Protein 24 Hour,Urine 810 mg/24 hr (40-90)
== END ==
PROVIDERS: PCP Family Medicine; Visit Provider Obstetrics & Gynecology
DX: O14.90 Unspecified pre-eclampsia, unspecified trimester (principal); Z34.90 Encounter for supervision of normal pregnancy, unspecified, unspecified trimester
CPT/HCPCS: 36415; 76819; 80048; 82575; 84155; 84450; 84460; 84550; 85025; 85378; 85384; 85610; 85730

== ENCOUNTER 2021-03-30 09:49 | Outpatient (CLI) | payer OTHER, SELFPAY ==
[2021-03-30 10:08] VITALS: BMI 29.3
[2021-03-30 10:39] LABS: Microscopic, Urine URINE MICROSCOPIC (MICROSCOPIC)
[2021-03-30 10:44] LABS: Appearance,Urine CLEAR (Clear); Bilirubin,Urine Negative (Negative); Blood, Urine Negative (Negative); Color,Urine YELLOW (Yellow); Glucose,Urine (UA) Negative (Negative); Ketones,Urine Negative (Negative); Leukocyte Esterase,Urine Negative (Negative); Nitrate,Urine Negative (Negative); PH,Urine 6.5 (5.0-8.5); Protein,Urine 2+ (Negative); Specific Gravity, Urine >= 1.030 (1.005-1.030)
[2021-03-30 10:49] LABS: Basophils % 0.6 % (0.1-2.0); Eosinophils # 0.1 K/mm3 (0.0-0.4); Hematocrit 36.4 % (37.0-47.0); Hemoglobin 12.2 g/dL (12.2-16.2); Lymphocytes # 1.3 K/mm3 (0.7-4.5); Lymphocytes % 16.3 % (10-50); Mean Corpuscular HGB Conc 33.6 g/dL (31.8-35.4); Mean Corpuscular Hemoglobin 30.1 pg (27.0-31.2); Mean Corpuscular Volume 89.5 fl (81-99); Mean Platelet Volume 11.3 fl (7.4-10.4); Monocytes # 0.3 K/mm3 (0.1-1.0); Monocytes % 3.6 % (1.7-9.3); Neutrophils % 78.5 % (37.0-80.0); Platelet Count 131 K/mm3 (142-424); Red Blood Count 4.07 M/mm3 (4.20-5.40); Red Cell Distribution Width 14.2 % (11.5-17.5); White Blood Count 7.7 K/mm3 (4.5-13.0)
[2021-03-30 10:55] LABS: Activated Partial Thrombo Time 25.2 seconds (22.8-30.6); Fibrinogen 257 mg/dL (229.9-363.5); INR 0.89 (0.9-1.1); Prothrombin Time 10.1 seconds (10.1-12.5)
[2021-03-30 10:56] LABS: D-Dimer 1.04 ug/mL (0.0-0.5)
[2021-03-30 10:57] LABS: Amorphous Sediment,Urine 1+ /lpf; Bacteria,Urine 1+ /lpf
[2021-03-30 11:23] LABS: Alanine Aminotransferase 11 U/L (12-78); Aspartate Amino Transferase 22 U/L (14-36); Blood Urea Nitrogen 10 mg/dl (7-17); Calcium 8.6 mg/dl (8.4-10.2); Carbon Dioxide 23 mmol/L (22.0-30.0); Chloride 108 mmol/L (98-107); Creatinine Clearance Estimated 220 mL/min (50-200); Estimated Glomerular Filt Rate 157 ml/min (>60); GFR (African American) 190 ML/MIN (>60); Glucose 111 mg/dl (74-100); Sodium 136 mmol/L (136-145); Uric Acid 5.4 mg/dl (2.5-6.2)
[2021-03-30 11:28] LABS: Amphetamine/Metha Screen,Urine Negative ng/ml (<1000)
[2021-03-30 11:29] LABS: Barbiturates Screen,Urine Negative ng/ml (<200); Benzodiazepines Screen,Urine Negative ng/ml (<200)
[2021-03-30 11:30] LABS: Cannabinoid Screen,Urine Negative ng/ml (<50)
[2021-03-30 11:31] LABS: Cocaine Screen,Urine Negative ng/ml (<300); Methadone Screen,Urine Negative ng/ml (<300)
[2021-03-30 11:32] LABS: Opiate Screen,Urine Negative ng/ml (<300)
[2021-03-30 11:33] LABS: Phencyclidine Screen,Urine Negative ng/ml (<25)
--- NOTE | 2021-03-30 11:58 | HMH.ACPN2 ---
Internal Medicine - PN: Subj *Date: 03/30/21 *Time: 11:58 Interval history: She is a 20-year-old 1 para 0 at 35+ weeks gestational age. She has been followed by Dr. Hubbard for proteinuria and possible early PIH. She was seen yesterday and had some blood work drawn. Her platelets had dropped into the 120s. LFTs were normal. Uric acid was slightly elevated. Blood pressures were normal. She is here today again to follow-up on her labs. Her 24-hour urine showed over 800 mg of protein. Her uric acid is 5.4 today. Her LFTs are normal. Her platelets have actually gone up from the mid 120s to 131. Her blood pressures are normal. She did have one blood pressure in the 140/90 range. Otherwise she is doing well. She has a mild headache but she does not want to take a Tylenol for this. Her blood pressures except for the one elevated 1 are in the 120s to 130s over 80s. I have given her 12 mg of Celestone today. We will repeat it again tomorrow. I have started her on nifedipine 30 mg XL. She will return tomorrow for her second steroid dose. We will put her on the monitor at that time again and check her blood pressures. She will follow up with Dr. Hubbard in approximately 48 hours time. I will plan to repeat the blood work again in 48 hours as well. Exam Vital signs and Labs for Last 24 Hours: Laboratory Results - last 24 hr 03/30/21 10:00: Urine Color Yellow, Urine Appearance Clear, Urine pH 6.5, Ur Specific [place] >= 1.030, Urine Protein 2+, Urine Glucose (UA) Negative, Urine Ketones Negative, Urine Blood Negative, Urine Nitrate Negative, Urine Bilirubin Negative, Urine Urobilinogen 1.0, Ur Leukocyte Esterase Negative, Urine RBC 3-5, Urine WBC 3-5, Ur Squamous Epith Cells 5-10, Amorphous Sediment 1+, Urine Bacteria 1+ 03/30/21 10:00: Urine Opiates Screen Negative, Urine Methadone Screen Negative, Ur Barbituates Screen Negative, Ur Phencyclidine Scrn Negative, Ur Amphetamines Screen Negative, U Benzodiazepines Scrn Negative, Urine Cocaine Screen Negative, U Marijuana (THC) Screen Negative 03/30/21 10:24: WBC 7.7 D, RBC 4.07 L, Hgb 12.2, Hct 36.4 L, MCV 89.5, MCH 30.1, MCHC 33.6, RDW 14.2, Plt Count 131 L, MPV 11.3 H, Neut % (Auto) 78.5, Lymph % (Auto) 16.3, [place] % (Auto) 3.6, Eos % (Auto) 1.0, Baso % (Auto) 0.6, Neut # (Auto) 6.0, Lymph # (Auto) 1.3, [place] # (Auto) 0.3, Eos # (Auto) 0.1, Baso # (Auto) 0.0 03/30/21 10:24: PT 10.1, INR 0.89 L, APTT 25.2, Fibrinogen 257 03/30/21 10:24: D-Dimer 1.04 H, Sodium 136, Potassium 4.0, Chloride 108 H, Carbon Dioxide 23, Anion Gap 9.0, BUN 10, Creatinine 0.50 L D, Estimated Creat Clear 220, Estimated GFR 157, Est GFR ( Amer) 190 D, Glucose 111 H, Uric Acid 5.4, Calcium 8.6, AST 22, ALT 11 L I & O for Last 24 hours: Intake & Output 03/27/21 03/28/21 03/29/21 03/30/21 11:59 11:59 11:59 11:59 Weight 171 lb - Constitutional no acute distress - *Routine HEENT Exam Head: Present: normocephalic Eye: Present: EOMI, PERRL ENT: Present: mucous membranes moist Assessment and Plan (1) induced hypertension, antepartum Status: Acute Category: Medical Code(s): O13.9 - Gestational [-induced] hypertension without significant proteinuria, unspecified trimester (2) COVID-19 affecting , antepartum Problem details: 02/21/21 Status: Acute Category: Medical Code(s): O98.519 - Other viral diseases complicating , unspecified trimester; U07.1 - COVID-19 (3) Proteinuria complicating in third trimester Status: Acute Category: Medical Code(s): O12.13 - Gestational proteinuria, third trimester - Assessment and plan all Dx Assessment and Plan for all problems:: I have given her a first course of steroids. She will return tomorrow for her second dose. We have given her nifedipine 30 mg XL today and a prescription for this. She will follow-up tomorrow for her second dose of steroids. We will also do an NST and check her blood
[2021-03-30 12:00] VITALS: BP 139/86; PULSE 88; RESP 18; TEMP 37.2; O2SAT 98; BMI 29.3
== END 2021-03-30 12:15 | disposition home or self-care (01) ==
LOC: OBOUT 09:51 → OB 09:52
PROVIDERS: PCP Family Medicine; Visit Provider Nurse Practitioner Obstetrics & Gynecology
DX: Z34.90 Encounter for supervision of normal pregnancy, unspecified, unspecified trimester (principal)
CPT/HCPCS: 36415; 59025; 80048; 80305; 81001; 84450; 84460; 84550; 85025; 85378; 85384; 85610; 85730; 96372; G0463

== ENCOUNTER 2021-03-31 13:20 | Outpatient (CLI) | payer OTHER, SELFPAY ==
[2021-03-31 13:33] VITALS: PULSE 100; RESP 20; TEMP 37.1; O2SAT 100; BMI 27.8
[2021-03-31 13:56] VITALS: BMI 26.9
== END 2021-03-31 14:57 | disposition home or self-care (01) ==
LOC: OBOUT 13:24 → OB 13:24
PROVIDERS: PCP Family Medicine; Referring Provider Nurse Practitioner Obstetrics & Gynecology; Visit Provider Obstetrics & Gynecology
DX: Z34.90 Encounter for supervision of normal pregnancy, unspecified, unspecified trimester (principal)
CPT/HCPCS: 59025; 96372; G0463

== ENCOUNTER 2021-04-02 15:25 | Inpatient (IN) | payer OTHER, SELFPAY ==
[2021-04-02] VITALS (11 sets, daily range): BP systolic 121–147; BP diastolic 61–93; PULSE 81–86; RESP 18; TEMP 36.7–36.9; O2SAT 98–99; BMI 28.3; BMI 29.6
[2021-04-02 16:20] LABS: Coronavirus 19, PCR Not Detected (NotDetected); Influenza A, PCR Not Detected (NotDetected); Influenza B, PCR Not Detected (NotDetected)
[2021-04-02 16:22] LABS: Basophils # 0.1 K/mm3 (0-0.2); Basophils % 0.9 % (0.1-2.0); Eosinophils # 0.1 K/mm3 (0.0-0.4); Eosinophils % 0.8 % (0.1-12.0); Hematocrit 35.6 % (37.0-47.0); Lymphocytes # 2.3 K/mm3 (0.7-4.5); Lymphocytes % 23.4 % (10-50); Mean Corpuscular HGB Conc 33.6 g/dL (31.8-35.4); Mean Corpuscular Hemoglobin 30.1 pg (27.0-31.2); Mean Corpuscular Volume 89.7 fl (81-99); Mean Platelet Volume 10.4 fl (7.4-10.4); Monocytes # 0.4 K/mm3 (0.1-1.0); Monocytes % 4.4 % (1.7-9.3); Neutrophils % 70.5 % (37.0-80.0); Platelet Count 166 K/mm3 (142-424); Red Blood Count 3.97 M/mm3 (4.20-5.40); Red Cell Distribution Width 14.4 % (11.5-17.5); White Blood Count 9.9 K/mm3 (4.5-13.0)
[2021-04-02 16:55] LABS: Activated Partial Thrombo Time 21.4 seconds (22.8-30.6); Fibrinogen 287 mg/dL (229.9-363.5); INR 0.85 (0.9-1.1); Prothrombin Time 9.7 seconds (10.1-12.5)
--- NOTE | 2021-04-02 16:56 | HMH.OBAPHP ---
OB - H&P: HPI Antepartum - History of Present Illness Chief complaint: -induced hypertension History of present illness: She is a 20-year-old 1 para 0 at 36 weeks gestational age. She was seen last week and had significant proteinuria. She had a 24-hour urine that showed over 800 mg of protein in her urine. Since then she has had a mild headache and her blood pressure has been slightly elevated. Today it is 140/90. Her reflexes are brisk. She was seen last week and her blood work was normal although her uric acid elevated from 5-5.4. Her platelets remained stable in the 120s. Today it is 166. Her blood pressure today is 143/93. She continues with a mild headache. When she was seen 48 hours ago she received steroids, 2 doses. As a result of her increased blood pressure, headache, brisk reflexes and rising uric acid as well as significant proteinuria we will go ahead and admit her and plan to deliver her. We will use Cervidil this evening. Her cervix was 2 cm dilated, 25% effaced and station -2. - History of Present Criteria for establishing EDC:: LMP confirmed by 1st trimester US care: good care Ultrasounds: normal 1st trimester US, normal mid trimester US Obstetrical complications: preeclampsia, gestational hypertension Medical complications: none - Labs Blood type: A (+) positive Rubella: immune RPR/VDRL: nonreactive GBS status: negative HBsAG: negative [facility] History I have reviewed the patient's past medical history: Yes *Have you ever received a pneumonia vaccine?: No *Have you received a flu vaccine this season?: No Laterality Cases: Bilateral: Myringotomy (Ear Tubes), Tonsillectomy Other Surgeries: No: Amputation: No Fractures: No - *Social History Smoking Status: Current every day smoker Alcohol Intake: never Substance Use Type: marijuana *Occupational Status:: employed Housing: other Household Members: other *Travel in the last 8 weeks: None Family Hx:: Cancer, Diabetes, Heart Attack, Hypertension, Hyperlipidemia, Stroke, Mental illness, Asthma Para: 0 Review of Systems - Review of Systems Review of systems:: pertinent systems reviewed and negative unless documented below Meds Home Medications Medication Instructions Recorded Confirmed Type vits no.126-ferrous fum 1 tab PO DAILY 09/25/20 04/02/21 History 28 mg iron-folic acid 800 mcg tablet Doxylamine Succinate [Unisom] 25 mg PO HSP PRN 02/19/21 04/02/21 History Ondansetron [Zofran 4mg ODT] 4 mg PO TIDP PRN 02/19/21 04/02/21 History Pyridoxine HCl (Vitamin B6) 100 mg PO DAILY 02/19/21 04/02/21 History [Vitamin B6] NIFEdipine [Nifedipine ER] 30 mg PO DAILY #30 tab 03/30/21 04/02/21 Rx Allergies Allergy/AdvReac Type Severity Reaction Status Date / Time Penicillins Allergy Verified 04/02/21 14:19 OB - H&P: Exam - Physical Exam Vital signs: Temp Pulse Resp BP Pulse Ox 98.5 F 86 18 143/93 H 98 04/02/21 15:45 04/02/21 15:45 04/02/21 15:45 04/02/21 15:45 04/02/21 15:45 - Constitutional no acute distress - Routine HEENT Exam Head: Present: normocephalic Eye: Present: EOMI, PERRL ENT: Present: mucous membranes moist - Routine Neck Exam Present: supple, full ROM - Routine Respiratory Exam Absent: accessory muscle use (good air entry bilaterally), respiratory distress, wheezes, crackles - Routine Cardiovascular Exam Present: RRR. Absent: murmur - Routine Abdominal Exam Present: soft, normoactive bowel sounds. Absent: tenderness, distended, guarding - Routine Rectal Exam Patient deferred: visual exam, digital exam - Routine Exam Patient deferred: external exam, groin exam, perineal exam - Routine Extremities Exam Present: full ROM. Absent: cyanosis, edema - Routine Skin Exam Present: intact. Absent: cyanosis - Routine Neurological Exam Present: alert, oriented X3 Reflexes were somewhat brisk. There w
[2021-04-02 17:10] LABS: Anion Gap 8.1 mEq/L (5-15); Blood Urea Nitrogen 9 mg/dl (7-17); Calcium 8.7 mg/dl (8.4-10.2); Carbon Dioxide 25 mmol/L (22.0-30.0); Chloride 105 mmol/L (98-107); Creatinine Clearance Estimated 304 mL/min (50-200); Estimated Glomerular Filt Rate 203 ml/min (>60); GFR (African American) 246 ML/MIN (>60); Glucose 76 mg/dl (74-100); Potassium 4.1 mmoL/L (3.5-5.1); Sodium 134 mmol/L (136-145); Uric Acid 4.3 mg/dl (2.5-6.2)
[2021-04-02 17:24] LABS: D-Dimer 1.14 ug/mL (0.0-0.5)
[2021-04-02 17:32] LABS: Alanine Aminotransferase 11 U/L (12-78); Aspartate Amino Transferase 38 U/L (14-36); Magnesium 1.4 mg/dl (1.6-2.3)
[2021-04-03] VITALS (8 sets, daily range): BP systolic 112–139; BP diastolic 66–94; PULSE 67–88; RESP 17–18; TEMP 36.7–36.9; O2SAT 98–99
[2021-04-03 02:13] LABS: OB Protein,Urine (DIP) Trace (Negative)
--- NOTE | 2021-04-03 11:13 | HMH.ANESCL ---
[facility] Anesthesia Checklist - Structural Data Admitted From: Inpatient Planned Operative Procedure/s: labor epidural Consent for Planned Operative Procedure(s) Verified: Yes - Airway Assessment C-Spine Mobility Assessed: Yes TMJ Mobility Assessed: Yes Dentition: Good Dentition - Neurological Assessment Level of Consciousness: Awake, Alert, Appropriate - Anesthesia Plan Anesthesia Risk discussed: Yes Anesthesia Plan: Verified ASA Class: II Anesthesia Type: Epidural [facility] History I have reviewed the patient's past medical history: Yes *Have you ever received a pneumonia vaccine?: No *Have you received a flu vaccine this season?: No Anesthesia experience/problems:: none Laterality Cases: Bilateral: Myringotomy (Ear Tubes), Tonsillectomy Other Surgeries: No: Amputation: No Fractures: No - *Social History Smoking Status: Current every day smoker Alcohol Intake: never Substance Use Type: marijuana *Occupational Status:: employed Housing: other Household Members: other *Travel in the last 8 weeks: None Family Hx:: Cancer, Diabetes, Heart Attack, Hypertension, Hyperlipidemia, Stroke, Mental illness, Asthma Para: 0
--- NOTE | 2021-04-03 12:21 | HMH.LABNOT ---
Labor Note - Subjective: Date: 04/03/21 Time: 10:21 Comment:: irregular contractions AROM with clear fluid IUPC and FSE placed without difficulty or complication - Objective: Cervical Dilation:: 3 Effacement:: 80% Station: -1 - Fetus: monitoring type:: Internal - Assessment: Patient Problems: All Active Problems induced hypertension, antepartum (Acute) Proteinuria complicating in third trimester (Acute) COVID-19 affecting , antepartum (Acute) Tobacco smoking complicating (Acute) History of intrauterine (Acute) Positive urine drug screen (Acute) (Acute) Abdominal pain (Acute) - Plan: Comment:: Continue pitocin augmentation Continuous monitoring BP stable at this time; magnesium sulfate discontinued with no severe range BP or lab abnormalities
--- NOTE | 2021-04-03 17:43 | HMH.DN ---
- Delivery Note Delivery Date:: 04/03/21 Delivery Time:: 16:30 Anesthesia Type: Epidural Was labor medically induced?: Yes Induction method: per pitocin protocol Gestational age (weeks): 36 delivered prior to 39 weeks?: Yes Justification for early elective delivery:: Pre-eclampsia Gender: Female at 1 minute: 8 at 5 minutes: 9 Delivery Procedure:: Spontaneous vaginal delivery of liveborn female infant over intact perineum. Delivery uncomplicated No nuchal cord or shoulder dystocia with delivery placed in TASHA immediately after delivery, with standard nursing assessment performed Apgars: 8 & 9 Placenta spontaneously expressed and examined; noted to be complete/intact. Right labial laceration repaired with 2-0 vicryl for hemostasis EBL: 300 cc All sponge/needle/instrument counts correct at conclusion of procedure Laceration:: labial Placental Delivery Description: Spontaneous
[2021-04-04 06:34] LABS: Hematocrit 35.6 % (37.0-47.0); Hemoglobin 11.5 g/dL (12.2-16.2)
--- NOTE | 2021-04-04 09:40 | SW/DCPLANNER ---
I received a referral for this patient regarding: positive THC on 07/25/2020 (first visit). female (Lila Akhtar) was born on 04/03/2021. Infants father is involved: Katy Akhtar 05/26/1997. Patient, Katy and infant will reside at [address] [place] [address]. Patients contact number is [phone]. Patient stated this is her second child: first child at . Patient is established with [facility] and is not interested in HANDS program at this time. Patient does have the following items at home: crib, carseat, clothing, diapers and will be bottlefeeding. Patient stated that she is expected to discharge home later today 04/04/21 or tomorrow 04/05/21.
--- NOTE | 2021-04-04 10:34 | P.PN_ITS ---
Internal Medicine - PN: Subj *Date: 04/04/21 *Time: 10:34 Interval history: PPD #1 blood pressures have been stable without medication she is feeling well and without complaint tolerating regular diet ambulating and voiding without difficulty lochia appropriate Exam Vital signs and Labs for Last 24 Hours: Temp Pulse Resp BP Pulse Ox 98.4 F 80 17 139/85 98 04/03/21 19:05 04/03/21 19:05 04/03/21 19:05 04/03/21 19:05 04/03/21 19:05 Laboratory Results - last 24 hr 04/04/21 06:15: Hgb 11.5 L, Hct 35.6 L I & O for Last 24 hours: Intake & Output 04/01/21 04/02/21 04/03/21 04/04/21 11:59 11:59 11:59 11:59 Output Total 1200 / 1200 Balance -1200 / -1200 Weight 189 lb Narrative: CONSTITUTIONAL: no acute distress HEENT: mucous membranes moist PULMONARY: breathing unlabored without audible wheezes CV: no tachycardia or visible JVD; normal LE peripheral pulses ABD: soft, NT/ND, no guarding : fundus firm below umbilicus SKIN: no visible rash or lesions EXT: 1+ edema LEs NEURO: alert/oriented, no altered mental status PSYCH: appropriate mood and demeanor Assessment and Plan (1) COVID-19 affecting , antepartum Problem details: 02/21/21 Status: Acute Category: Medical Code(s): O98.519 - Other viral diseases complicating , unspecified trimester; U07.1 - COVID-19 (2) induced hypertension, antepartum Status: Acute Category: Medical Code(s): O13.9 - Gestational [-induced] hypertension without significant proteinuria, unspecified trimester (3) Proteinuria complicating in third trimester Status: Acute Category: Medical Code(s): O12.13 - Gestational proteinuria, third trimester (4) Tobacco smoking complicating Status: Acute Category: Medical Code(s): O99.330 - Smoking (tobacco) complicating , unspecified trimester (5) Pre-eclampsia, mild Status: Acute Category: Medical Code(s): O14.00 - Mild to moderate pre- eclampsia, unspecified trimester - Assessment and plan all Dx Assessment and Plan for all problems:: routine care continue to monitor blood pressure closely possible discharge tomorrow
[2021-04-05 08:14] VITALS: BP 132/76; PULSE 93; RESP 18; TEMP 36.7; O2SAT 99
--- NOTE | 2021-04-05 14:06 | P.DS_ITS ---
General - General Admission date:: 04/02/21 Discharge date: 04/05/21 Hospital Course Hospital Course: course uneventful blood pressure stable/normal discharged home on PPD #2 in stable condition she will f/u in office 2 weeks Objective Vital signs: Temp Pulse Resp BP Pulse Ox 98.0 F 93 H 18 132/76 99 04/05/21 08:14 04/05/21 08:14 04/05/21 08:14 04/05/21 08:14 04/05/21 08:14 Narrative: CONSTITUTIONAL: no acute distress HEENT: mucous membranes moist PULMONARY: breathing unlabored without audible wheezes CV: no tachycardia or visible JVD; normal LE peripheral pulses ABD: soft, NT/ND, no guarding : fundus firm below umbilicus SKIN: no visible rash or lesions EXT: 1+ edema LEs NEURO: alert/oriented, no altered mental status PSYCH: appropriate mood and demeanor DS: Diagnosis - Discharge Diagnosis (1) COVID-19 affecting , antepartum Status: Acute Problem details: 02/21/21 (2) induced hypertension, antepartum Status: Acute (3) Proteinuria complicating in third trimester Status: Acute (4) Tobacco smoking complicating Status: Acute (5) Pre-eclampsia, mild Status: Acute Discharge Plan - Patient Discharge Instructions ACTIVITY: Continue current activity DIET: regular diet Patient Instructions: Depression, Hemorrhage, DI for Pre- eclampsia, [facility] Post Discharge Instructions, Preventing the Spread of Coronavirus Discharge Instructions - Follow up Plan Follow up with: Lianna Hubbard MD [Staff Physician] - 05/15/21 11:30 am Disposition: Home, Self-Care Condition at discharge:: Stable Home Medications: Home Medications Medication Instructions Recorded Confirmed Type vits no.126-ferrous fum 1 tab PO DAILY 09/25/20 04/02/21 History 28 mg iron-folic acid 800 mcg tablet Doxylamine Succinate [Unisom] 25 mg PO HSP PRN 02/19/21 04/02/21 History Ondansetron [Zofran 4mg ODT] 4 mg PO TIDP PRN 02/19/21 04/02/21 History Pyridoxine HCl (Vitamin B6) 100 mg PO DAILY 02/19/21 04/02/21 History [Vitamin B6] NIFEdipine [Nifedipine ER] 30 mg PO DAILY 04/02/21 04/02/21 History Ibuprofen [Motrin 400mg 800 mg PO Q6HP PRN #40 tab 04/05/21 Rx tablet] Prescriptions/Medication Reconciliation: New Acetaminophen [Acetaminophen 325mg tab] 650 mg PO Q4HP PRN tab PRN Reason: Mild Pain Ibuprofen [Motrin 400mg tablet] 800 mg PO Q6HP PRN #40 tab PRN Reason: Mild To Moderate Pain Continued vits no.126-ferrous fum 28 mg iron-folic acid 800 mcg tablet 1 tab PO DAILY Ondansetron [Zofran 4mg ODT] 4 mg PO TIDP PRN PRN Reason: Nausea Pyridoxine HCl (Vitamin B6) [Vitamin B6] 100 mg PO DAILY Doxylamine Succinate [Unisom] 25 mg PO HSP PRN PRN Reason: Nausea NIFEdipine [Nifedipine ER] 30 mg PO DAILY - Problem Reconciliation Problems Reviewed?: Yes
== END 2021-04-05 15:50 | disposition home or self-care (01) | DRG 807 ==
PROVIDERS: Admitting Provider Nurse Practitioner Obstetrics & Gynecology; PCP Family Medicine; Visit Provider Obstetrics & Gynecology
DX: O14.04 Mild to moderate pre-eclampsia, complicating childbirth (principal); Z37.0 Single live birth; Z3A.36 36 weeks gestation of pregnancy; O60.14X0 Preterm labor third trimester with preterm delivery third trimester, not applicable or unspecified; O99.333 Smoking (tobacco) complicating pregnancy, third trimester; F17.210 Nicotine dependence, cigarettes, uncomplicated
CPT/HCPCS: 59409; 36415; 59025; 80048; 80305; 81001; 81002; 83735; 84450; 84460; 84550; 85014; 85018; 85025; 85378; 85384; 85610; 85730; 86850; 94761; 96372; C1758; C9803; G0283; G0463; J0595; J2405; U0003; U0005

== ENCOUNTER → 2021-10-04 15:17 | Outpatient (CLI) | payer OTHER, SELFPAY ==
[2021-10-04 17:08] LABS: HCG,Quantitative 380 mIU/ml (0-5.42)
== END ==
PROVIDERS: PCP Family Medicine; Visit Provider Obstetrics & Gynecology
DX: Z32.01 Encounter for pregnancy test, result positive (principal)
CPT/HCPCS: 36415; 84702

== ENCOUNTER → 2021-10-16 15:20 | Outpatient (CLI) | payer OTHER, SELFPAY | PROVIDERS: Visit Provider Obstetrics & Gynecology | DX: Z34.90 Encounter for supervision of normal pregnancy, unspecified, unspecified trimester (principal) | CPT/HCPCS: 87086; 87088; 87186 ==

== ENCOUNTER → 2021-10-17 14:11 | Outpatient (CLI) | payer OTHER, SELFPAY ==
--- NOTE | 2021-10-17 14:12 | US_ITS ---
FINAL REPORT CLINICAL HISTORY: Dates FINDINGS: Sonographic images of the pelvis were obtained. A single, living intrauterine is noted. A yolk sac is present and measures 4 mm. [place] to rump length measures 6 mm which corresponds to 6 weeks 3 days gestation. Heartbeat is identified and measures 130 beats per minute. The right ovary is within normal limits. The left ovary is within normal limits. IMPRESSION: Single, living, intrauterine gestation with 6 weeks 3 days gestational age. Reviewed, Interpreted and Dictated by Roberto Evans MD Transcribed by Sheryl Mckeon Authenticated and [facility]
== END ==
PROVIDERS: PCP Family Medicine; Visit Provider Obstetrics & Gynecology
DX: Z34.90 Encounter for supervision of normal pregnancy, unspecified, unspecified trimester (principal)
CPT/HCPCS: 76801

== ENCOUNTER → 2021-12-14 13:44 | Outpatient (CLI) | payer OTHER, SELFPAY ==
[2021-12-14 15:35] LABS: Basophils % 0.8 % (0.1-2.0); Eosinophils % 0.4 % (0.1-12.0); Hematocrit 39.5 % (37.0-47.0); Hemoglobin 13.3 g/dL (12.2-16.2); Lymphocytes # 1.8 K/mm3 (0.7-4.5); Lymphocytes % 31.2 % (10-50); Mean Corpuscular HGB Conc 33.8 g/dL (31.8-35.4); Mean Corpuscular Hemoglobin 29.9 pg (27.0-31.2); Mean Corpuscular Volume 88.6 fl (81-99); Mean Platelet Volume 9.3 fl (7.4-10.4); Monocytes # 0.1 K/mm3 (0.1-1.0); Neutrophils # 3.7 K/mm3 (1.8-7.8); Neutrophils % 65.6 % (37.0-80.0); Platelet Count 187 K/mm3 (142-424); Red Blood Count 4.45 M/mm3 (4.20-5.40); Red Cell Distribution Width 13.6 % (11.5-17.5); White Blood Count 5.6 K/mm3 (4.8-10.8)
[2021-12-14 17:27] LABS: HCG,Quantitative 24865 mIU/ml (0-5.42)
[2021-12-16 08:10] LABS: Rapid Plasma Reagin Ab Titer Non Reactive (NonRea<1:1)
[2021-12-16 09:13] LABS: HIV Screen 4th Generation wRfx Non Reactive (Non Reactive); Hepatitis B Surface Antigen Negative (Negative); Hepatitis C Antibody <0.1 s/co ratio (0.0-0.9); Rubella Antibodies, IgG 0.94 index (Immune >0.99)
== END ==
PROVIDERS: PCP Family Medicine; Visit Provider Obstetrics & Gynecology
DX: Z34.90 Encounter for supervision of normal pregnancy, unspecified, unspecified trimester (principal)
CPT/HCPCS: 36415; 84702; 85025; 86592; 86703; 86762; 86850; 87340; 87380; G0432

== ENCOUNTER → 2022-01-16 13:39 | Outpatient (CLI) | payer OTHER, SELFPAY ==
--- NOTE | 2022-01-16 13:39 | US_ITS ---
FINAL REPORT CLINICAL HISTORY: 20 week anatomy scan FINDINGS: There is a single live intrauterine gestation. Presentation is cephalic. The cervix is closed and measures 4.6 cm. Placenta is posterior and grade 1. Cardiac activity is confirmed at 138 bpm. Three-vessel cord with satisfactory umbilical cord insertion. Four-chamber heart is noted. brain and ventricles are unremarkable. Chest and diaphragm are unremarkable. ABDOMEN: Both kidneys are unremarkable. Stomach is unremarkable. SPINE: Suboptimally visualized but normal where seen. Both arms and legs noted. AMNIOTIC FLUID: Appropriate amount. MEASUREMENTS: ULTRASOUND AGE: 19 weeks 4 days. GESTATION AGE: 19 weeks 3 days. ESTIMATED WEIGHT: 300 g GROWTH PERCENTILE: 53% BPD: 4.6 cm consistent with 19 weeks 6 days. OFD: 5.5 cm consistent with 19 weeks 3 days. HC: 15.9 cm consistent with 18 weeks 6 days. AC: 14.6 cm consistent with 20 weeks 0 days. FL: 3.0 cm consistent with 19 weeks 3 days. CEREBELLUM: 1.9 cm consistent with 19 weeks 2 days. HUMERUS: 2.9 cm consistent with 19 weeks 3 days. HC/AC: 1.09 CI: 82% FL/BPD: 66% FL/AC: 21% IMPRESSION: Single living IUP with an ultrasound age of 19 weeks 3 days. Reviewed, Interpreted and Dictated by Zach Martini III, MD Transcribed by Dewayne Nicole Authenticated and [facility]
== END ==
PROVIDERS: PCP Family Medicine; Visit Provider Obstetrics & Gynecology
DX: Z34.90 Encounter for supervision of normal pregnancy, unspecified, unspecified trimester (principal); Z3A.20 20 weeks gestation of pregnancy
CPT/HCPCS: 76811

== ENCOUNTER 2022-02-21 18:51 | Outpatient (CLI) | payer OTHER, SELFPAY ==
[2022-02-21 19:21] VITALS: BMI 25.7
[2022-02-21 19:31] LABS: Microscopic, Urine URINE MICROSCOPIC (MICROSCOPIC)
[2022-02-21 19:41] LABS: Appearance,Urine CLEAR (Clear); Bilirubin,Urine Negative (Negative); Blood, Urine Negative (Negative); Color,Urine YELLOW (Yellow); Glucose,Urine (UA) Negative (Negative); Ketones,Urine Negative (Negative); Leukocyte Esterase,Urine 2+ (Negative); Nitrate,Urine Negative (Negative); Protein,Urine Negative (Negative)
[2022-02-21 19:53] LABS: Benzodiazepines Screen,Urine Negative ng/ml (<200)
[2022-02-21 19:54] LABS: Amphetamine/Metha Screen,Urine Negative ng/ml (<1000)
[2022-02-21 19:55] LABS: Barbiturates Screen,Urine Negative ng/ml (<200); Cannabinoid Screen,Urine Positive ng/ml (<50)
[2022-02-21 19:56] LABS: Cocaine Screen,Urine Negative ng/ml (<300)
[2022-02-21 19:57] LABS: Methadone Screen,Urine Negative ng/ml (<300); Opiate Screen,Urine Negative ng/ml (<300)
[2022-02-21 19:58] LABS: Phencyclidine Screen,Urine Negative ng/ml (<25)
[2022-02-21 20:17] LABS: WBC,Urine Occasional #/hpf (0-3)
[2022-02-21 20:18] LABS: Bacteria,Urine 1+ /lpf; RBC,Urine Occasional #/hpf (0-3)
== END 2022-02-21 20:19 | disposition home or self-care (01) ==
LOC: OBOUT 18:56 → OB 18:56
PROVIDERS: PCP Obstetrics & Gynecology; Visit Provider Nurse Practitioner Obstetrics & Gynecology
DX: O36.8120 Decreased fetal movements, second trimester, not applicable or unspecified (principal); Z3A.25 25 weeks gestation of pregnancy
CPT/HCPCS: 80305; 81001; 87086

== ENCOUNTER 2022-03-07 19:15 | Outpatient (CLI) | payer OTHER, SELFPAY ==
[2022-03-07 19:29] VITALS: BMI 25.7
[2022-03-07 19:55] LABS: Microscopic, Urine URINE MICROSCOPIC (MICROSCOPIC)
[2022-03-07 20:00] LABS: Appearance,Urine CLEAR (Clear); Bilirubin,Urine Negative (Negative); Blood, Urine Negative (Negative); Color,Urine YELLOW (Yellow); Glucose,Urine (UA) Negative (Negative); Ketones,Urine TRACE (Negative); Leukocyte Esterase,Urine Negative (Negative); Nitrate,Urine Negative (Negative); PH,Urine 6.5 (5.0-8.5); Protein,Urine TRACE (Negative)
[2022-03-07 20:11] LABS: Amorphous Sediment,Urine 2+ /lpf; Bacteria,Urine Trace /lpf; Squamous Epithelial Cell,Urine Occasional #/hpf (0-5); WBC,Urine Occasional #/hpf (0-3)
[2022-03-07 20:12] LABS: Barbiturates Screen,Urine Negative ng/ml (<200)
[2022-03-07 20:13] LABS: Benzodiazepines Screen,Urine Negative ng/ml (<200)
[2022-03-07 20:14] LABS: Amphetamine/Metha Screen,Urine Negative ng/ml (<1000); Cannabinoid Screen,Urine Positive ng/ml (<50)
[2022-03-07 20:15] LABS: Cocaine Screen,Urine Negative ng/ml (<300)
[2022-03-07 20:16] LABS: Methadone Screen,Urine Negative ng/ml (<300); Opiate Screen,Urine Negative ng/ml (<300)
[2022-03-07 20:17] LABS: Phencyclidine Screen,Urine Negative ng/ml (<25)
== END 2022-03-07 20:45 | disposition home or self-care (01) ==
LOC: OBOUT 19:19 → OB 19:19
PROVIDERS: PCP Family Medicine; Visit Provider Nurse Practitioner Obstetrics & Gynecology
DX: O26.899 Other specified pregnancy related conditions, unspecified trimester (principal)
CPT/HCPCS: 59025; 80305; 81001

== ENCOUNTER → 2022-03-15 09:05 | Outpatient (CLI) | payer OTHER, SELFPAY ==
[2022-03-15 09:32] LABS: Basophils % 0.5 % (0.1-2.0); Eosinophils % 0.5 % (0.1-12.0); Hematocrit 35.7 % (37.0-47.0); Hemoglobin 11.9 g/dL (12.2-16.2); Lymphocytes # 1.3 K/mm3 (0.7-4.5); Mean Corpuscular HGB Conc 33.2 g/dL (31.8-35.4); Mean Corpuscular Hemoglobin 29.7 pg (27.0-31.2); Mean Corpuscular Volume 89.5 fl (81-99); Monocytes # 0.2 K/mm3 (0.1-1.0); Monocytes % 2.7 % (1.7-9.3); Neutrophils # 5.5 K/mm3 (1.8-7.8); Neutrophils % 78.4 % (37.0-80.0); Platelet Count 180 K/mm3 (142-424); Red Cell Distribution Width 13.8 % (11.5-17.5)
[2022-03-15 09:48] LABS: Glucose,Fasting 106 mg/dl (74-100)
[2022-03-15 11:57] LABS: Glucose 1 Hour 101 mg/dL (74-100)
== END ==
PROVIDERS: PCP Family Medicine; Visit Provider Obstetrics & Gynecology
DX: Z34.90 Encounter for supervision of normal pregnancy, unspecified, unspecified trimester (principal); Z3A.25 25 weeks gestation of pregnancy
CPT/HCPCS: 36415; 82951; 85025

== ENCOUNTER 2022-03-26 11:42 | Outpatient (CLI) | payer OTHER, SELFPAY ==
[2022-03-26 12:29] VITALS: BMI 26.4
[2022-03-26 12:41] LABS: Coronavirus 19, PCR Not Detected (NotDetected); Influenza A, PCR Not Detected (NotDetected); Influenza B, PCR Not Detected (NotDetected)
[2022-03-26 12:44] LABS: Basophils % 0.3 % (0.1-2.0); Eosinophils % 0.4 % (0.1-12.0); Hematocrit 32.6 % (37.0-47.0); Hemoglobin 11.5 g/dL (12.2-16.2); Lymphocytes # 0.4 K/mm3 (0.7-4.5); Lymphocytes % 5.4 % (10-50); Mean Corpuscular HGB Conc 35.5 g/dL (31.8-35.4); Mean Corpuscular Volume 84.5 fl (81-99); Mean Platelet Volume 8.5 fl (7.4-10.4); Monocytes # 0.2 K/mm3 (0.1-1.0); Monocytes % 2.5 % (1.7-9.3); Neutrophils # 6.3 K/mm3 (1.8-7.8); Neutrophils % 91.4 % (37.0-80.0); Platelet Count 155 K/mm3 (142-424); Red Blood Count 3.85 M/mm3 (4.20-5.40); Red Cell Distribution Width 13.7 % (11.5-17.5); White Blood Count 6.9 K/mm3 (4.8-10.8)
[2022-03-26 12:47] LABS: MANUAL DIFFERENTIAL MANUAL DIFFERENTIAL (MANUAL DIFF)
[2022-03-26 12:56] LABS: Lymphocytes % 10 % (10-50); Monocytes % 3 % (2-9); Neutrophils % 87 % (42-76); Platelet Estimate Slight Decrease; RBC Morphology Normal; Total Cells Counted 100
[2022-03-26 13:34] LABS: Fetal Fibronectin (Rapid) Positive (Negative)
[2022-03-26 13:36] VITALS: BP 140/77; PULSE 105; RESP 18; TEMP 37; O2SAT 98; BMI 26.2
== END 2022-03-26 14:15 | disposition home or self-care (01) ==
LOC: OBOUT 11:43 → OB 11:44
PROVIDERS: PCP Family Medicine; Visit Provider Nurse Practitioner Obstetrics & Gynecology
DX: O47.03 False labor before 37 completed weeks of gestation, third trimester (principal); Z3A.29 29 weeks gestation of pregnancy
CPT/HCPCS: 59025; 82731; 85007; 85025; 96365; C9803; G0463; U0003; U0005

== ENCOUNTER 2022-03-28 13:08 | Outpatient (CLI) | payer OTHER, SELFPAY ==
[2022-03-28 14:05] VITALS: BMI 26.8
[2022-03-28 14:09] LABS: Microscopic, Urine URINE MICROSCOPIC (MICROSCOPIC)
[2022-03-28 14:10] VITALS: BMI 26.9
[2022-03-28 14:21] LABS: Appearance,Urine CLEAR (Clear); Blood, Urine Negative (Negative); Color,Urine DK YELLOW (Yellow); Glucose,Urine (UA) Negative (Negative); Ketones,Urine TRACE (Negative); Leukocyte Esterase,Urine TRACE (Negative); Nitrate,Urine Negative (Negative); PH,Urine 6.5 (5.0-8.5); Protein,Urine 1+ (Negative); Specific Gravity, Urine 1.025 (1.005-1.030); Urobilinogen,Urine >=8.0 EU/dl (0.2)
[2022-03-28 14:32] LABS: Bilirubin,Urine Negative (Negative)
[2022-03-28 14:33] LABS: Amphetamine/Metha Screen,Urine Negative ng/ml (<1000)
[2022-03-28 14:35] LABS: Benzodiazepines Screen,Urine Negative ng/ml (<200); Cannabinoid Screen,Urine Positive ng/ml (<50)
[2022-03-28 14:36] LABS: Cocaine Screen,Urine Negative ng/ml (<300)
[2022-03-28 14:37] LABS: Methadone Screen,Urine Negative ng/ml (<300); Opiate Screen,Urine Negative ng/ml (<300)
[2022-03-28 14:38] LABS: Phencyclidine Screen,Urine Negative ng/ml (<25)
[2022-03-28 14:41] LABS: Bacteria,Urine Trace /lpf; Mucus,Urine 1+ /lpf; RBC,Urine Occasional #/hpf (0-3); WBC,Urine Occasional #/hpf (0-3)
[2022-03-28 14:42] VITALS: BP 103/62; PULSE 68; RESP 17
[2022-03-28 14:42] LABS: Barbiturates Screen,Urine Negative ng/ml (<200)
== END 2022-03-28 16:02 | disposition home or self-care (01) ==
LOC: OBOUT 13:10 → OB 13:11
PROVIDERS: PCP Family Medicine; Visit Provider Nurse Practitioner Obstetrics & Gynecology
DX: O26.893 Other specified pregnancy related conditions, third trimester (principal); Z3A.29 29 weeks gestation of pregnancy; M54.50 Low back pain, unspecified; R42 Dizziness and giddiness
CPT/HCPCS: 59025; 80305; 81001

== ENCOUNTER 2022-03-29 10:08 | Outpatient (CLI) | payer OTHER, SELFPAY ==
[2022-03-29 10:35] VITALS: BP 109/61; PULSE 78; RESP 18; TEMP 36.3; O2SAT 100
== END 2022-03-29 10:49 | disposition home or self-care (01) ==
LOC: INF 10:09
PROVIDERS: PCP Family Medicine; Visit Provider Obstetrics & Gynecology
DX: O60.00 Preterm labor without delivery, unspecified trimester (principal)
CPT/HCPCS: 96372

== ENCOUNTER 2022-03-30 09:29 | Outpatient (CLI) | payer OTHER, SELFPAY ==
[2022-03-30 09:41] VITALS: BP 119/73; PULSE 84; RESP 18; TEMP 36.8; O2SAT 100
[2022-03-30 09:42] VITALS: BMI 26.7
== END 2022-03-30 10:24 | disposition home or self-care (01) ==
LOC: OBOUT 09:30 → OB 09:30
PROVIDERS: PCP Family Medicine; Visit Provider Obstetrics & Gynecology
DX: O26.893 Other specified pregnancy related conditions, third trimester (principal); Z3A.29 29 weeks gestation of pregnancy
CPT/HCPCS: 59025; 96372

== ENCOUNTER → 2022-04-01 09:02 | Outpatient (CLI) | payer OTHER, SELFPAY ==
[2022-04-01 15:31] LABS: Total Protein 24 Hour,Urine 120 mg/24 hr (40-90); Total Volume,Urine 750 mL (600-1600)
== END ==
PROVIDERS: PCP Family Medicine; Visit Provider Obstetrics & Gynecology
DX: O12.13 Gestational proteinuria, third trimester (principal)
CPT/HCPCS: 84155

== ENCOUNTER 2022-04-12 14:03 | Outpatient (CLI) | payer OTHER, SELFPAY ==
[2022-04-12 14:09] VITALS: BMI 26.2
[2022-04-12 14:33] VITALS: BP 124/71; PULSE 85; RESP 17; TEMP 36.8; O2SAT 98; BMI 26.3
[2022-04-12 15:06] LABS: Basophils % 0.5 % (0.1-2.0); Eosinophils % 0.3 % (0.1-12.0); Hematocrit 31.6 % (37.0-47.0); Hemoglobin 11.1 g/dL (12.2-16.2); Lymphocytes # 1.6 K/mm3 (0.7-4.5); Lymphocytes % 20.3 % (10-50); Mean Corpuscular HGB Conc 35.2 g/dL (31.8-35.4); Mean Corpuscular Hemoglobin 30.5 pg (27.0-31.2); Mean Corpuscular Volume 86.7 fl (81-99); Mean Platelet Volume 8.2 fl (7.4-10.4); Monocytes # 0.3 K/mm3 (0.1-1.0); Monocytes % 3.8 % (1.7-9.3); Neutrophils # 6.1 K/mm3 (1.8-7.8); Neutrophils % 75.1 % (37.0-80.0); Platelet Count 208 K/mm3 (142-424); Red Blood Count 3.64 M/mm3 (4.20-5.40); Red Cell Distribution Width 14.8 % (11.5-17.5); White Blood Count 8.1 K/mm3 (4.8-10.8)
[2022-04-12 15:15] LABS: Anion Gap 4.8 mEq/L (5-15); Blood Urea Nitrogen 6 mg/dl (7-17); Calcium 8.3 mg/dl (8.4-10.2); Carbon Dioxide 25 mmol/L (22.0-30.0); Chloride 108 mmol/L (98-107); Creatinine Clearance Estimated 336 mL/min (50-200); Estimated Glomerular Filt Rate 281 ml/min (>60); GFR (African American) 340 ML/MIN (>60); Glucose 88 mg/dl (74-100); Potassium 3.8 mmoL/L (3.5-5.1); Sodium 134 mmol/L (136-145)
[2022-04-12 15:29] LABS: Activated Partial Thrombo Time 22.8 seconds (22.8-30.6); Fibrinogen 403 mg/dL (229.9-363.5); INR 0.87 (0.9-1.1); Prothrombin Time 9.5 seconds (10.1-12.5)
[2022-04-12 15:56] LABS: D-Dimer 0.91 ug/mL (0.0-0.5)
[2022-04-12 16:07] LABS: Microscopic, Urine URINE MICROSCOPIC (MICROSCOPIC)
[2022-04-12 16:11] LABS: Alanine Aminotransferase 12 U/L (12-78); Aspartate Amino Transferase 22 U/L (14-36); Uric Acid 3.4 mg/dl (2.5-6.2)
[2022-04-12 16:11] LABS: Appearance,Urine CLEAR (Clear); Bilirubin,Urine Negative (Negative); Blood, Urine Negative (Negative); Color,Urine YELLOW (Yellow); Glucose,Urine (UA) Negative (Negative); Ketones,Urine Negative (Negative); Leukocyte Esterase,Urine Negative (Negative); Nitrate,Urine Negative (Negative); Protein,Urine Negative (Negative); Specific Gravity, Urine 1.015 (1.005-1.030)
[2022-04-12 16:32] LABS: Amorphous Sediment,Urine 1+ /lpf; Bacteria,Urine Trace /lpf; Mucus,Urine Trace /lpf
== END 2022-04-12 15:55 | disposition home or self-care (01) ==
LOC: OBOUT 14:03 → OB 14:04
PROVIDERS: PCP Family Medicine; Visit Provider Obstetrics & Gynecology
DX: O13.3 Gestational [pregnancy-induced] hypertension without significant proteinuria, third trimester (principal); Z3A.31 31 weeks gestation of pregnancy
CPT/HCPCS: 59025; 80048; 81001; 84450; 84460; 84550; 85025; 85378; 85384; 85610; 85730; 96365; G0463

== ENCOUNTER → 2022-04-15 08:28 | Outpatient (CLI) | payer OTHER, SELFPAY ==
[2022-04-15 08:59] LABS: Total Volume,Urine 700 mL (600-1600)
[2022-04-15 09:01] LABS: Patient Height,Urine 64 inches; Patient Weight,Urine 158 lbs
[2022-04-15 09:22] LABS: Total Protein 24 Hour,Urine 49 mg/24 hr (40-90)
[2022-04-15 09:35] LABS: Creatinine 24 Hour,Urine 924 mg/24hr (630-2500)
[2022-04-15 09:36] LABS: Creatinine,Urine Random 132 mg/dL (Not Estab.)
[2022-04-15 09:38] LABS: Collection Time,Urine 24 hours
[2022-04-15 09:47] LABS: Creatinine Clearance Urine 215.6 mL/min (25-115)
== END ==
PROVIDERS: PCP Family Medicine; Visit Provider Obstetrics & Gynecology
DX: Z34.90 Encounter for supervision of normal pregnancy, unspecified, unspecified trimester (principal); Z87.59 Personal history of other complications of pregnancy, childbirth and the puerperium
CPT/HCPCS: 36415; 82575; 84155

== ENCOUNTER → 2022-04-25 10:03 | Outpatient (CLI) | payer OTHER, SELFPAY ==
--- NOTE | 2022-04-25 10:05 | US_ITS ---
FINAL REPORT CLINICAL HISTORY: sga COMPARISON: 01/16/2022 FINDINGS: There is a single live intrauterine gestation. Presentation is cephalic. The cervix is closed and measures 4 cm. Placenta is posterior/fundal. movement is noted. heart rate is noted at 144 beats per minute. Visualized anatomy is unremarkable. MEASUREMENTS: ULTRASOUND AGE: 34 weeks 0 days. GESTATION AGE: 34 weeks 4 days. ESTIMATED WEIGHT: 2291 g GROWTH PERCENTILE: 51 % HC/AC: 1.0 CI: 81% FL/BPD: 75% FL/AC: 21% BPP score: 8 Breathin Movement: 2 Tone: 2 Fluid volume: 2 CECILLE total: 15.30, normal Right upper quadrant 4.70 Left upper quadrant 2.5. Right lower quadrant 3.59 Left lower quadrant 4.48 IMPRESSION: Single living IUP with an ultrasound age of 34 weeks 0 days. BPP 8/8 Posterior placenta. Normal CECILLE. Reviewed, Interpreted and Dictated by Nicolasa Childs MD Transcribed by Sonia Loyd Authenticated and [facility]
== END ==
PROVIDERS: PCP Family Medicine; Visit Provider Obstetrics & Gynecology
DX: O36.5990 Maternal care for other known or suspected poor fetal growth, unspecified trimester, not applicable or unspecified (principal)
CPT/HCPCS: 76816; 76819

== ENCOUNTER 2022-04-28 15:19 | Outpatient (CLI) | payer OTHER, SELFPAY ==
[2022-04-28 16:02] VITALS: BMI 28.5
[2022-04-28 16:15] VITALS: BP 120/68; PULSE 88; RESP 18; TEMP 36.7; O2SAT 100; BMI 28.5
[2022-04-28 16:15] LABS: Microscopic, Urine URINE MICROSCOPIC (MICROSCOPIC)
[2022-04-28 16:17] LABS: Appearance,Urine CLEAR (Clear); Bilirubin,Urine Negative (Negative); Blood, Urine Negative (Negative); Color,Urine YELLOW (Yellow); Glucose,Urine (UA) Negative (Negative); Ketones,Urine Negative (Negative); Leukocyte Esterase,Urine 1+ (Negative); Nitrate,Urine Negative (Negative); PH,Urine 6.5 (5.0-8.5); Protein,Urine Negative (Negative); Specific Gravity, Urine >= 1.030 (1.005-1.030)
[2022-04-28 16:28] LABS: Bacteria,Urine Trace /lpf
[2022-04-28 16:31] LABS: Benzodiazepines Screen,Urine Negative ng/ml (<200)
[2022-04-28 16:32] LABS: Amphetamine/Metha Screen,Urine Negative ng/ml (<1000); Barbiturates Screen,Urine Negative ng/ml (<200)
[2022-04-28 16:33] LABS: Cannabinoid Screen,Urine Negative ng/ml (<50)
[2022-04-28 16:34] LABS: Cocaine Screen,Urine Negative ng/ml (<300); Methadone Screen,Urine Negative ng/ml (<300)
[2022-04-28 16:36] LABS: Opiate Screen,Urine Negative ng/ml (<300); Phencyclidine Screen,Urine Negative ng/ml (<25)
== END 2022-04-28 16:55 | disposition home or self-care (01) ==
LOC: OBOUT 15:20 → OB 15:22
PROVIDERS: PCP Family Medicine; Visit Provider Nurse Practitioner Obstetrics & Gynecology
DX: O26.893 Other specified pregnancy related conditions, third trimester (principal); Z3A.34 34 weeks gestation of pregnancy; M54.50 Low back pain, unspecified; R10.9 Unspecified abdominal pain
CPT/HCPCS: 59025; 80305; 81001; 87086; G0463

== ENCOUNTER 2022-05-06 10:02 | Outpatient (CLI) | payer OTHER, SELFPAY ==
[2022-05-06 10:28] VITALS: BMI 28.3
[2022-05-06 10:44] VITALS: BP 119/87; PULSE 91; RESP 18; TEMP 36.8; O2SAT 98; BMI 28.3
[2022-05-06 10:52] LABS: Basophils % 0.4 % (0.1-2.0); Eosinophils % 0.2 % (0.1-12.0); Hematocrit 32.8 % (37.0-47.0); Hemoglobin 11.2 g/dL (12.2-16.2); Lymphocytes # 0.8 K/mm3 (0.7-4.5); Mean Corpuscular HGB Conc 34.2 g/dL (31.8-35.4); Mean Corpuscular Hemoglobin 27.8 pg (27.0-31.2); Mean Corpuscular Volume 81.3 fl (81-99); Mean Platelet Volume 9.3 fl (7.4-10.4); Monocytes # 0.2 K/mm3 (0.1-1.0); Monocytes % 3.9 % (1.7-9.3); Neutrophils # 4.2 K/mm3 (1.8-7.8); Neutrophils % 79.5 % (37.0-80.0); Platelet Count 188 K/mm3 (142-424); Red Blood Count 4.03 M/mm3 (4.20-5.40); Red Cell Distribution Width 15.5 % (11.5-17.5); White Blood Count 5.3 K/mm3 (4.8-10.8)
[2022-05-06 11:03] LABS: Lactate Dehydrogenase 162 U/L (313-618); Uric Acid 4.1 mg/dl (2.5-6.2)
[2022-05-06 11:08] LABS: D-Dimer 1.62 ug/mL (0.0-0.5)
[2022-05-06 11:11] LABS: Fibrinogen 504 mg/dL (229.9-363.5)
[2022-05-06 11:24] LABS: Alanine Aminotransferase 11 U/L (12-78); Aspartate Amino Transferase 20 U/L (14-36)
== END 2022-05-06 12:10 | disposition home or self-care (01) ==
LOC: OBOUT 10:04 → OB 10:05
PROVIDERS: PCP Family Medicine; Visit Provider Obstetrics & Gynecology
DX: O26.893 Other specified pregnancy related conditions, third trimester (principal); Z3A.35 35 weeks gestation of pregnancy
CPT/HCPCS: 59025; 83615; 84450; 84460; 84550; 85025; 85378; 85384; 85730; G0463

== ENCOUNTER 2022-05-07 16:47 | Observation (INO) | payer OTHER, SELFPAY ==
[2022-05-07 14:39] VITALS: BMI 28.1
[2022-05-07 15:14] VITALS: BP 129/73; PULSE 75; RESP 16; TEMP 36.9; O2SAT 98; BMI 28.1
[2022-05-07 15:32] LABS: Basophils % 0.2 % (0.1-2.0); Eosinophils % 0.5 % (0.1-12.0); Hematocrit 31.9 % (37.0-47.0); Hemoglobin 10.8 g/dL (12.2-16.2); Lymphocytes % 14.6 % (10-50); Mean Corpuscular Volume 82.3 fl (81-99); Mean Platelet Volume 8.7 fl (7.4-10.4); Monocytes # 0.2 K/mm3 (0.1-1.0); Monocytes % 3.4 % (1.7-9.3); Neutrophils # 5.4 K/mm3 (1.8-7.8); Neutrophils % 81.4 % (37.0-80.0); Platelet Count 182 K/mm3 (142-424); Red Blood Count 3.87 M/mm3 (4.20-5.40); Red Cell Distribution Width 15.6 % (11.5-17.5); White Blood Count 6.6 K/mm3 (4.8-10.8)
[2022-05-07 15:41] LABS: Alanine Aminotransferase 10 U/L (12-78); Anion Gap 8.7 mEq/L (5-15); Aspartate Amino Transferase 19 U/L (14-36); Blood Urea Nitrogen 9 mg/dl (7-17); Calcium 8.1 mg/dl (8.4-10.2); Carbon Dioxide 25 mmol/L (22.0-30.0); Chloride 102 mmol/L (98-107); Creatinine Clearance Estimated 348 mL/min (50-200); Estimated Glomerular Filt Rate 281 ml/min (>60); GFR (African American) 340 ML/MIN (>60); Glucose 93 mg/dl (74-100); Magnesium 1.8 mg/dl (1.6-2.3); Potassium 3.7 mmoL/L (3.5-5.1); Sodium 132 mmol/L (136-145); Uric Acid 4.3 mg/dl (2.5-6.2)
[2022-05-07 15:43] LABS: Activated Partial Thrombo Time 23.9 seconds (22.8-30.6); D-Dimer 1.11 ug/mL (0.0-0.5); Fibrinogen 436 mg/dL (229.9-363.5); Prothrombin Time 9.8 seconds (10.1-12.5)
[2022-05-07 16:28] LABS: Alkaline Phosphatase 116 U/L (38-126)
[2022-05-07 17:11] LABS: Coronavirus 19, PCR Not Detected (NotDetected); Influenza A, PCR Not Detected (NotDetected); Influenza B, PCR Not Detected (NotDetected)
--- NOTE | 2022-05-07 17:20 | EXP.HP ---
History of Present Illness *Admission Date: 05/07/22 *Reason for visit:: Proteinuria *History of present illness: 21 yo Admitted for evaluation/observation at 35 2/7 because of significant proteinuria in office today History of early delivery (36w) with G2 secondary to preeclampsia History of IUFD at 23 wks with G1 (undetermined etiology) She was not feeling well and reports nausea and vomiting for several days PIH labs done yesterday with 100mg proteinuria (otherwise normal) and she was sent home with 24 hr urine; BP was normal but she is also taking procardia for contractions She called the office today concern over not feeling well and was brought into the office Urine protein today was >300 and she was sent to L&D for direct admission/observation She will complete 24 hr urine during admission [facility] Disclaimer: The information contained in this section may have been updated after the patient was seen, as this information can be updated by other users. 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, placental infarct Social History Smoking Status: Never smoker alcohol intake: never substance use type: marijuana current occupational status: employed Travel in the last 8 weeks: None household members: other housing: other Review of Systems Review of Systems Review of systems:: pertinent systems reviewed and negative unless documented below Constitutional Constitutional: Denies chills, Denies fever(s) and Reports headache(s) ENT Ears, Nose, Mouth, and Throat: Reports headache(s) *Genitourinary Genitourinary: Denies abnormal vaginal bleeding *Neurologic Neurologic: Reports headache(s) and Denies other visual disturbances Meds Home Medications and Allergies Home Medications Medication Instructions Recorded Confirmed Type vits no.126-ferrous fum 1 tab PO DAILY Supplement #90 tabs 11/02/21 05/07/22 Rx 28 mg iron-folic acid 800 mcg tablet (Classic ) nifedipine 10 mg capsule 20 mg PO QID Hypertension 04/16/22 05/07/22 History ondansetron 4 mg disintegrating 4 mg PO Q6HP PRN Nausea 05/07/22 05/07/22 History tablet New Prescriptions to Start Prescriptions: Allergies Allergy/AdvReac Type Severity Reaction Status Date / Time Penicillins Allergy Verified 05/07/22 13:53 Exam Data for Last 24 hours Vital signs and Labs for Last 24 Hours: Temp Pulse Resp BP Pulse Ox 98.4 F 75 16 129/73 98 05/07/22 15:14 05/07/22 15:14 05/07/22 15:14 05/07/22 15:14 05/07/22 15:14 Laboratory Results - last 24 hr 05/07/22 15:00: SARS-CoV-2 (PCR) Not detected, Influenza A Untype (PCR) Not detected, Influenza Type B (PCR) Not detected 05/07/22 15:14: WBC 6.6, RBC 3.87 L, Hgb 10.8 L, Hct 31.9 L, MCV 82.3, MCH 28.0, MCHC 34.0, RDW 15.6, Plt Count 182, MPV 8.7, Neut % (Auto) 81.4 H, Lymph % (Auto) 14.6, [place] % (Auto) 3.4, Eos % (Auto) 0.5, Baso % (Auto) 0.2, Neut # (Auto) 5.4, Lymph # (Auto) 1.0, [place] # (Auto) 0.2, Eos # (Auto) 0.0, Baso # (Auto) 0.0 05/07/22 15:14: PT 9.8 L, INR 0.90, APTT 23.9, Fibrinogen 436 H 05/07/22 15:14: D-Dimer 1.11 H, Sodium 132 L, Potassium 3.7, Chloride 102, Carbon Dioxide 25, Anion Gap 8.7, BUN 9, Creatinine 0.30 L, Estimated Creat Clear 348 H, Estimated GFR 281, Est GFR ( Amer) 340, Glucose 93, Uric Acid 4.3, Calcium 8.1 L, Magnesium 1.8, AST 19, ALT 10 L 05/07/22 15:14: Blood Type A Positive, Antibody Screen Negative 05/07/22 15:14: Alkaline Phosphatase 116 I & O for Last 24 hours: Intake & Output 05/05/22 05/06/22 05/07/22 05/08/22 11:59 11:59 11:59 11:59 Weight 164 lb Constitutional Constitutional: no acute distress *Routine HEENT Exam Head: Present normocephalic Eye: Absent conjunctival icterus or scleral injection ENT: Present mucous memb
[2022-05-07 20:30] VITALS: BP 122/58; PULSE 73; RESP 18; TEMP 36.7; O2SAT 99
[2022-05-07 23:50] VITALS: BP 101/52; PULSE 67; RESP 18; TEMP 37.1; O2SAT 99
[2022-05-08 04:23] VITALS: BP 109/58; PULSE 75; RESP 18; TEMP 36.5; O2SAT 99
--- NOTE | 2022-05-08 07:53 | P.CONPHA_ITS ---
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 -JUANITA MOTLEYD
--- NOTE | 2022-05-08 08:00 | US_ITS ---
FINAL REPORT CLINICAL HISTORY: SYMPTOMS OF PIH-- sd ration done FINDINGS: TRANSABDOMINAL ULTRASOUND There is a single live intrauterine gestation. Presentation is cephalic. Placenta is posterior, grade 3. Cardiac activity is confirmed at 124 bpm. Fetus is active. CECILLE: 13.7 cm S/D ratio: 2.9 MEASUREMENTS: ULTRASOUND AGE: 35 weeks 3 days. GESTATION AGE: 35 weeks 3 days. BREATHIN/2 MOVEMENT: 2/2 TONE: 2/2 FLUID VOLUME: 2/2 BPP SCORE: 8/8 IMPRESSION: Single living IUP with an ultrasound age of 35 weeks 3 days. BPP SCORE: 8/8 CECILLE: 13.7 S/D ratio: 2.9 Reviewed, Interpreted and Dictated by Zach Martini III, MD Transcribed by Sheryl Mckeon Authenticated and [facility]
[2022-05-08 08:10] VITALS: BP 128/70; PULSE 78; RESP 16; TEMP 36.7; O2SAT 99
[2022-05-08 14:30] VITALS: BP 103/59; PULSE 70; RESP 18; O2SAT 98
[2022-05-08 16:45] VITALS: BP 110/64; PULSE 80; RESP 16; TEMP 36.6; O2SAT 99
[2022-05-08 17:19] LABS: Total Volume,Urine 650 mL (600-1600)
[2022-05-08 17:27] LABS: Total Protein 24 Hour,Urine 52 mg/24 hr (40-90)
--- NOTE | 2022-05-08 18:35 | EXP.DC.SUM ---
General Admission date:: 05/07/22 Discharge date: 05/08/22 HPI HPI HPI: 21 yo Admitted for evaluation/observation at 35 2/7 because of significant proteinuria in office today History of early delivery (36w) with G2 secondary to preeclampsia History of IUFD at 23 wks with G1 (undetermined etiology) She was not feeling well and reports nausea and vomiting for several days PIH labs done yesterday with 100mg proteinuria (otherwise normal) and she was sent home with 24 hr urine; BP was normal but she is also taking procardia for contractions She called the office today concern over not feeling well and was brought into the office Urine protein today was >300 and she was sent to L&D for direct admission/observation She will complete 24 hr urine during admission Hospital Course Hospital Course Hospital Course: Nausea/vomiting has resolved, but she has not been taking po liquids sufficiently, and has been drinking mostly Mountain Dew Maternal labs were normal, with no evidence of preeclampsia Total urine protein was 52 but urine volume was unusually low, at 650mL in 24 hours BP has been stable, even after discontinuation of procardia (which was for PTL, not hypertension) assessment has been reassuring with reactive NSTs and BPP 8/8, UA S/D 2.9 and CECILLE 13.7 She desires discharge home but was advised that she needs to increase fluid intake She will be given IV fluid bolus prior to discharge and will monitor urine output at home tonight and call office with total volume tomorrow She will be seen in office on Friday with NST Exam Data for Last 24 hours Vital signs and Labs for Last 24 Hours: Temp Pulse Resp BP Pulse Ox 97.9 F 80 16 110/64 99 05/08/22 16:45 05/08/22 16:45 05/08/22 16:45 05/08/22 16:45 05/08/22 16:45 Laboratory Results - last 24 hr 05/08/22 15:40: Urine Total Volume 650, Ur Total Protein 24 Hr 52, Urine Total Protein 8.0 I & O for Last 24 hours: Intake & Output 05/06/22 05/07/22 05/08/22 05/09/22 11:59 11:59 11:59 11:59 Output Total 150 / 150 200 / 200 Balance -150 / -150 -200 / -200 Weight 164 lb Constitutional Constitutional: no acute distress *Routine HEENT Exam Head: Present normocephalic Eye: Absent conjunctival icterus or scleral injection ENT: Present mucous membranes moist *Routine Neck Exam Neck: Present supple *Routine Respiratory Exam Respiratory: Present CTA bilaterally *Routine Cardiovascular Exam Cardiovascular: Present RRR *Routine Abdominal Exam Abdominal: Present soft; Absent tenderness or distended *Routine Rectal Exam Patient deferred: visual exam and digital exam *Routine Exam External: Present normal urethra appearance *Routine Extremities Exam Extremities: Present edema *Routine Neurological Exam Neurological: Present alert, oriented X3 and normal reflexes Routine Psychiatric Exam Psychiatric: Present normal affect; Absent depressed Results Data Completed and Pending Labs on day of discharge: Labs from last 24 hours 05/08/22 15:40 Urine Total Volume 650 Ur Total Protein 24 Hr 52 Urine Total Protein 8.0 DS: Diagnosis Discharge Diagnosis (1) 35 weeks gestation of : Status: Acute (2) Proteinuria affecting in third trimester: Status: Acute (3) labor without delivery: Status: Acute (4) History of intrauterine : Status: Acute Problem details: G1 : 24 wks, placental infarct (5) History of pre-eclampsia: Status: Acute Problem details: G2 Meds Home Medications and Allergies Home Medications Medication Instructions Recorded Confirmed Type vits no.126-ferrous fum 1 tab PO DAILY Supplement #90 tabs 11/02/21 05/07/22 Rx 28 mg iron-folic acid 800 mcg tablet (Classic ) ondansetron 4 mg disintegrating 4 mg PO Q6HP PRN Nausea 05/07/22 05/07/22 History tablet
[2022-05-08 20:00] VITALS: BP 129/64; PULSE 69; RESP 17; TEMP 36.7; O2SAT 98
== END 2022-05-08 20:35 | disposition home or self-care (01) ==
LOC: OBOUT 16:47 → OB 16:48
PROVIDERS: Admitting Provider Obstetrics & Gynecology; PCP Family Medicine; Visit Provider Obstetrics & Gynecology
DX: O60.03 Preterm labor without delivery, third trimester (principal); Z3A.35 35 weeks gestation of pregnancy; O12.13 Gestational proteinuria, third trimester
CPT/HCPCS: 59025; 76819; 76820; 80048; 83735; 84075; 84155; 84450; 84460; 84550; 85025; 85378; 85384; 85610; 85730; 86850; 96360; C9803; G0378; U0003; U0005

== ENCOUNTER → 2022-05-14 11:00 | Outpatient (CLI) | payer OTHER, SELFPAY | PROVIDERS: Visit Provider Obstetrics & Gynecology | DX: Z34.90 Encounter for supervision of normal pregnancy, unspecified, unspecified trimester (principal); Z3A.35 35 weeks gestation of pregnancy | CPT/HCPCS: 86403 ==

== ENCOUNTER 2022-05-19 16:58 | Inpatient (IN) | payer OTHER, SELFPAY ==
[2022-05-19 17:09] VITALS: BMI 29.0
[2022-05-19 18:15] LABS: Microscopic, Urine URINE MICROSCOPIC (MICROSCOPIC)
[2022-05-19 18:15] LABS: Coronavirus 19, PCR Not Detected (NotDetected); Influenza A, PCR Not Detected (NotDetected); Influenza B, PCR Not Detected (NotDetected)
[2022-05-19 18:21] LABS: Appearance,Urine CLOUDY (Clear); Blood, Urine Negative (Negative); Color,Urine YELLOW (Yellow); Glucose,Urine (UA) Negative (Negative); Ketones,Urine Negative (Negative); Leukocyte Esterase,Urine 1+ (Negative); Nitrate,Urine Negative (Negative); Protein,Urine 1+ (Negative); Specific Gravity, Urine 1.025 (1.005-1.030)
[2022-05-19 18:25] LABS: Basophils % 0.4 % (0.1-2.0); Eosinophils % 0.3 % (0.1-12.0); Hematocrit 31.1 % (37.0-47.0); Hemoglobin 10.4 g/dL (12.2-16.2); Lymphocytes # 1.6 K/mm3 (0.7-4.5); Lymphocytes % 19.4 % (10-50); Mean Corpuscular HGB Conc 33.3 g/dL (31.8-35.4); Mean Corpuscular Hemoglobin 26.9 pg (27.0-31.2); Mean Corpuscular Volume 80.9 fl (81-99); Mean Platelet Volume 8.2 fl (7.4-10.4); Monocytes # 0.3 K/mm3 (0.1-1.0); Monocytes % 3.6 % (1.7-9.3); Neutrophils # 6.3 K/mm3 (1.8-7.8); Neutrophils % 76.4 % (37.0-80.0); Platelet Count 200 K/mm3 (142-424); Red Blood Count 3.85 M/mm3 (4.20-5.40); White Blood Count 8.2 K/mm3 (4.8-10.8)
[2022-05-19 18:32] LABS: Barbiturates Screen,Urine Negative ng/ml (<200)
[2022-05-19 18:33] LABS: Benzodiazepines Screen,Urine Negative ng/ml (<200)
[2022-05-19 18:34] LABS: Amphetamine/Metha Screen,Urine Negative ng/ml (<1000); Methadone Screen,Urine Negative ng/ml (<300)
[2022-05-19 18:35] VITALS: BP 124/86; PULSE 88; RESP 18; O2SAT 98; BMI 28.8
[2022-05-19 18:35] LABS: Cannabinoid Screen,Urine Negative ng/ml (<50); Cocaine Screen,Urine Negative ng/ml (<300)
[2022-05-19 18:36] LABS: Opiate Screen,Urine Negative ng/ml (<300)
[2022-05-19 18:37] LABS: Bilirubin,Urine 1+ (Negative); Phencyclidine Screen,Urine Negative ng/ml (<25)
[2022-05-19 18:38] LABS: Bacteria,Urine 1+ /lpf
[2022-05-19 19:57] VITALS: BP 127/80; PULSE 75; RESP 18; TEMP 36.9; O2SAT 100
--- NOTE | 2022-05-20 08:08 | P.CONPHA_ITS ---
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 -JUANITA MOTLYED
--- NOTE | 2022-05-20 08:57 | EXP.HP ---
History of Present Illness *Admission Date: 05/19/22 *Reason for visit:: Labor Induction *History of present illness: 21 year old @ 37 03/02 Dating by 6 04/30 ultrasound care at [facility]-- Dr. Hubbard Obstetrical history complicated by demise with delayed diagnosis during G1 in [place] The demise was noted at a appointment in which the gestational age of the fetus was 32w by dates, but ultrasound measurements for fetus were 22-23w and no heart tones had been obtained at the two preceeding appointments She was induced and had uncomplicated vaginal delivery; office notes from [place] physician documented placental infarct noted after delivery, but pathology report was not included in her records and tissue exam was not performed on the She presented for care at [facility] with G2 and was sent for [facility] consultation based on uncertain etiology for demise with G1 MFM evaluation showed negative autoimmune labs (antiphospholipid antibody and anticardiolipin antibody) and concluded that the previous demise was an unfortunate event with a low recurrence risk She was started on Aspirin 81mg daily and had negative NIPT labs and normal 20w anatomical survey (also done by MFM) She was later diagnosed with preeclampsia at 36w and was induced with uncomplicated vaginal delivery in March 2021 She presented for care with current in September 2021, when her infant was only 6 months old NIPT labs were normal with this She began having contractions with premature dilation at 29 weeks She was taken off work, started on PO procardia and given Celestone on 03/29 and / Blood pressures have been intermittently high and 24 hr urine showed 120mg protein at 29 weeks Subsequent 24 hr urine testing has been negative, with 49mg at 31 wks and 52mg at 35 wks BP has been normal in office over past several weeks, but she has also had symptoms of intermittent headaches and nausea/vomiting During most recent PIH evaluation with 24 hr urine, she was admitted for observation and IV hydration because of vomiting and low urine output Procardia (for PTL) was also discontinued in order to evaluate potential for preeclampsia movement had been decreased intermittently testing has been reassuring with twice weekly NST and weekly BPP FH measured small but EFW was calcultated at 51% for GA Placenta was calcified, grade 3 also complicated by tobacco abuse, anemia and rubella non-immune maternal status [facility] Disclaimer: The information contained in this section may have been updated after the patient was seen, as this information can be updated by other users. Medical History (Updated 05/20/22 @ 09:39 by Lianna Hubbard MD) ASCUS favoring benign Gastritis History of intrauterine Family History Other Family history of cancer Social History (Updated 05/19/22 @ 22:12 by Zelda Castro RN) Smoking Status: Never smoker alcohol intake: never substance use type: marijuana current occupational status: employed Travel in the last 8 weeks: None household members: other housing: other marital status: single number of children: 1 Review of Systems Review of Systems Review of systems:: pertinent systems reviewed and negative unless documented below Review of systems (narrative): decreased movement Constitutional Constitutional: Denies fever(s) Eyes Comments: intermittent headaches *Gastrointestinal Comments: intermittent nausea/vomiting *Genitourinary Genitourinary: Denies abnormal vaginal bleeding Comments: + irregular contractions *Neurologic Neurologic: Denies other visual disturbances Meds Home Medications and Allergies Home Medications Medication Instructions Recorded Confirmed Type vits no.126-ferrous fum 1 tab PO DAILY Supple
--- NOTE | 2022-05-20 11:59 | EXP.ANES.CKL ---
[facility] Disclaimer: The information contained in this section may have been updated after the patient was seen, as this information can be updated by other users. Medical History (Updated 05/20/22 @ 09:39 by Lianna Hubbard MD) ASCUS favoring benign Gastritis History of intrauterine Family History Other Family history of cancer Social History (Updated 05/19/22 @ 22:12 by Zelda Castro RN) Smoking Status: Never smoker alcohol intake: never substance use type: marijuana current occupational status: employed Travel in the last 8 weeks: None household members: other housing: other marital status: single number of children: 1 [facility] Anesthesia Checklist Structural Data Admitted From: Inpatient Planned Operative Procedure/s: labor epidural Consent for Planned Operative Procedure(s) Verified: Yes Airway Assessment C-Spine Mobility Assessed: Yes TMJ Mobility Assessed: Yes Dentition: Good Dentition Neurological Assessment Level of Consciousness: Awake, Alert and Appropriate Anesthesia Plan Anesthesia Risk discussed: Yes Anesthesia Plan: Verified ASA Class: II Anesthesia Type: Epidural
--- NOTE | 2022-05-20 12:00 | EXP.LABOR.NO ---
Labor Note Subjective: Date: 05/20/22 Time: 12:00 Comment:: regular contractions comfortable with epidural tracing has been reassuring Objective: NST:: Reactive Comment:: cervix 4/75/-1 AROM with clear fluid IUPC and FSE placed without difficulty or complication Fetus: monitoring type:: Internal Assessment: Labor progressing?: Yes Plan: Comment:: Continue pitocin augmentation continuous monitoring
--- NOTE | 2022-05-20 17:24 | EXP.DN ---
Delivery Note Delivery Date:: 05/20/22 Delivery Time:: 15:08 Anesthesia Type: Epidural Was labor medically induced?: Yes Induction method: per pitocin protocol Gestational age (weeks): 37 delivered prior to 39 weeks?: Yes Justification for early elective delivery:: Decreased Movements and Other (utero-placental insufficiency ) Gender: Female at 1 minute: 8 at 5 minutes: 9 Delivery Procedure:: Spontaneous vaginal delivery of live born female infant over intact perineum. Delivery uncomplicated Nuchal cord x 1 reduced on perineum No shoulder dystocia with delivery Infant placed in TASHA immediately after delivery, with standard nursing assessment performed Apgars: 8 & 9 Placenta spontaneously expressed and examined; noted to be complete/intact. Vulva, vagina, and cervix inspected; left santos-urethral/labial laceration repaired with 2-0 vicryl in running fashion EBL: 300 cc All sponge/needle/instrument counts correct at conclusion of procedure Mother and infant stable to recovery Laceration:: labial Placental Delivery Description: Spontaneous
[2022-05-20 19:37] VITALS: BP 130/76; PULSE 68; RESP 18; TEMP 36.8; O2SAT 100
[2022-05-21 03:49] VITALS: BP 106/59; PULSE 73; RESP 17; TEMP 36.6; O2SAT 98
[2022-05-21 06:39] LABS: Hematocrit 28.9 % (37.0-47.0); Hemoglobin 9.7 g/dL (12.2-16.2)
[2022-05-21 08:16] VITALS: BP 131/83; PULSE 85; RESP 18; TEMP 37.1; O2SAT 100
--- NOTE | 2022-05-21 10:22 | EXP.ACUTE.PN ---
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 Medical Exam Vital signs and Labs for Last 24 Hours: Vital Signs Temp Pulse Resp BP Pulse Ox 05/21/22 08:16 98.8 F 85 18 131/83 100 05/21/22 03:49 97.8 F 73 17 106/59 L 98 05/20/22 19:37 98.2 F 68 18 130/76 100 Laboratory Results - last 24 hr 05/19/22 17:18: Urine Color Yellow, Urine Appearance Cloudy, Urine pH 7.0, Ur Specific [place] 1.025, Urine Protein 1+, Urine Glucose (UA) Negative, Urine Ketones Negative, Urine Blood Negative, Urine Nitrate Negative, Urine Bilirubin 1+ A, Urine Urobilinogen 4.0, Ur Leukocyte Esterase 1+ A, Urine RBC None, Urine WBC 10-20, Ur Squamous Epith Cells 10-20, Urine Bacteria 1+ 05/19/22 17:18: Urine Opiates Screen Negative, Urine Methadone Screen Negative, Ur Barbituates Screen Negative, Ur Phencyclidine Scrn Negative, Ur Amphetamines Screen Negative, U Benzodiazepines Scrn Negative, Urine Cocaine Screen Negative, U Marijuana (THC) Screen Negative 05/21/22 05:54: Hgb 9.7 L, Hct 28.9 L I & O for Labs for Last 24 Hours: Intake & Output 05/18/22 05/19/22 05/20/22 05/21/22 11:59 11:59 11:59 11:59 Weight 168 lb 15.996 oz Microbiology Reports for the Last 24 Hours: Microbiology 05/19/22 17:18 Urine,Clean Catch Urine Culture - Preliminary Gram Negative Rods Comment:: No acute distress Comment:: breathing unlabored Comment:: Regular rate, normal peripheral pulses Comments:: abdomen soft, non-tender, non-distended Comment:: uterine fundus firm below umbilicus Comment:: 1+ edema bilateral lower extremities Comment:: no rash Assessment and Plan *Assessment and plan (1) 37 weeks gestation of : Status: Acute Category: Medical Code(s): Z3A.37 - 37 weeks gestation of (2) Short interval between pregnancies affecting , antepartum: Status: Acute Category: Medical Code(s): O09.899 - Supervision of other high risk pregnancies, unspecified trimester (3) Rubella non-immune status, antepartum: Status: Acute Category: Medical Code(s): O09.899 - Supervision of other high risk pregnancies, unspecified trimester; Z28.39 - Other underimmunization status (4) Decreased movement affecting management of in third trimester: Status: Acute Category: Medical Code(s): O36.8130 - Decreased movements, third trimester, not applicable or unspecified (5) Placental insufficiency affecting management of mother in third trimester: Status: Acute Category: Medical Code(s): O36.5130 - Maternal care for known or suspected placental insufficiency, third trimester, not applicable or unspecified (6) History of intrauterine : Problem Comment: G1 : 24 wks, placental infarct Status: Acute Category: Medical Code(s): Z87.59 - Personal history of other complications of , childbirth and the puerperium (7) History of pre-eclampsia: Problem Comment: G2 Status: Acute Category: Medical Code(s): Z87.59 - Personal history of other complications of , childbirth and the puerperium (8) Normal spontaneous vaginal delivery: Status: Acute Category: Medical Code(s): O80 - Encounter for full-term uncomplicated delivery Plan Routine care Ferrous sulfate supplementation for anemia Will start Macrobid while awaiting final ur
--- NOTE | 2022-05-21 11:19 | EXP.ACUTE.PN ---
Subjective *Date: 05/21/22 *Time: 11:19 Interval history: Urine culture from office specimen last week ([facility] Urine ID) returned with E. Coli and Poteus Mireloisalus She will be given Rocephin 2gm IM single dose as treatment, per sensitivity results Medical Exam Vital signs and Labs for Last 24 Hours: Vital Signs Temp Pulse Resp BP Pulse Ox 05/21/22 08:16 98.8 F 85 18 131/83 100 05/21/22 03:49 97.8 F 73 17 106/59 L 98 05/20/22 19:37 98.2 F 68 18 130/76 100 Laboratory Results - last 24 hr 05/19/22 17:18: Urine Color Yellow, Urine Appearance Cloudy, Urine pH 7.0, Ur Specific [place] 1.025, Urine Protein 1+, Urine Glucose (UA) Negative, Urine Ketones Negative, Urine Blood Negative, Urine Nitrate Negative, Urine Bilirubin 1+ A, Urine Urobilinogen 4.0, Ur Leukocyte Esterase 1+ A, Urine RBC None, Urine WBC 10-20, Ur Squamous Epith Cells 10-20, Urine Bacteria 1+ 05/19/22 17:18: Urine Opiates Screen Negative, Urine Methadone Screen Negative, Ur Barbituates Screen Negative, Ur Phencyclidine Scrn Negative, Ur Amphetamines Screen Negative, U Benzodiazepines Scrn Negative, Urine Cocaine Screen Negative, U Marijuana (THC) Screen Negative 05/21/22 05:54: Hgb 9.7 L, Hct 28.9 L I & O for Labs for Last 24 Hours: Intake & Output 05/18/22 05/19/22 05/20/22 05/21/22 11:59 11:59 11:59 11:59 Weight 168 lb 15.996 oz Microbiology Reports for the Last 24 Hours: Microbiology 05/19/22 17:18 Urine,Clean Catch Urine Culture - Preliminary Gram Negative Rods Assessment and Plan *Assessment and plan (1) UTI (urinary tract infection) in in third trimester: Status: Acute Category: Medical Code(s): O23.43 - Unspecified infection of urinary tract in , third trimester Plan Rocephin 2gm IM single dose
--- NOTE | 2022-05-21 14:33 | CARE MANAGER ---
CM spoke with patient and her spouse at bedside to discuss CM Referral that was received. Patient tested positive for THC early in . She was negative on admission and states that she quit when she found out she was . Nursing staff states that patient is appropriate with baby. Patient has a 1 year old as well, which was in the room today when I met with them. I do not feel that patient warrants a CPS referral at this time.
[2022-05-21 19:57] VITALS: BP 128/60; PULSE 90; RESP 17; TEMP 37; O2SAT 97
[2022-05-22 04:14] VITALS: BP 107/55; PULSE 77; RESP 17; TEMP 36.9
--- NOTE | 2022-05-22 11:46 | EXP.DC.SUM ---
General Admission date:: 05/19/22 Discharge date: 05/22/22 HPI HPI HPI: PPD # 2 s/p She is feeling well. Pain controlled. Breast feeding. Light lochia. Voiding without difficulty and passing flatus. Tolerating regular diet. Denies fever/chills, chest pain and shortness of breath. No headaches, lightheadedness/dizziness. No swelling. Hospital Course Hospital Course Hospital Course: 21 year old @ 37 03/02 Dating by 6 04/30 ultrasound care at [facility]-- Dr. Hubbard Obstetrical history complicated by demise with delayed diagnosis during G1 in [place] The demise was noted at a appointment in which the gestational age of the fetus was 32w by dates, but ultrasound measurements for fetus were 22-23w and no heart tones had been obtained at the two preceeding appointments She was induced and had uncomplicated vaginal delivery; office notes from [place] physician documented placental infarct noted after delivery, but pathology report was not included in her records and tissue exam was not performed on the She presented for care at [facility] with G2 and was sent for MFM consultation based on uncertain etiology for demise with G1 MFM evaluation showed negative autoimmune labs (antiphospholipid antibody and anticardiolipin antibody) and concluded that the previous demise was an unfortunate event with a low recurrence risk She was started on Aspirin 81mg daily and had negative NIPT labs and normal 20w anatomical survey (also done by MFM) She was later diagnosed with preeclampsia at 36w and was induced with uncomplicated vaginal delivery in March 2021 She presented for care with current in September 2021, when her was only 6 months old NIPT labs were normal with this She began having contractions with premature dilation at 29 weeks She was taken off work, started on PO procardia and given Celestone on 2/ and 2/4 Blood pressures have been intermittently high and 24 hr urine showed 120mg protein at 29 weeks Subsequent 24 hr urine testing has been negative, with 49mg at 31 wks and 52mg at 35 wks BP has been normal in office over past several weeks, but she has also had symptoms of intermittent headaches and nausea/vomiting During most recent [facility] evaluation with 24 hr urine, she was admitted for observation and IV hydration because of vomiting and low urine output Procardia (for PTL) was also discontinued in order to evaluate potential for preeclampsia movement had been decreased intermittently testing has been reassuring with twice weekly NST and weekly BPP FH measured small but EFW was calcultated at 51% for GA Placenta was calcified, grade 3 also complicated by tobacco abuse, anemia and rubella non-immune maternal status She underwent induction of labor on 05/19/22. She delivered a live female baby on 05/20/22 at 1508 (baby's name is Yaneli), weighing 6 lb 14 oz. AGPARs 8,9. EBL 300 mL. She did well . Breast feeding. Light lochia. Vital signs stable, afebrile. She was voiding without difficulty and passing flatus. Tolerating regular diet. No headaches, vision changes, RUQ pain or swelling. She was discharged to home on PPD # 2. She request Depo Provera for contraception prior to discharge. Urine culture from the office resulted during hospital stay and demonstrated E. Coli and Proteus Mirabelus. She received 2 gm Rocephin and sent home with prescription for Marcobid. She was instructed to continue ferrous sulfate for acute blood loss aneima and follow-up with Dr. Hubbard in the office in 2 weeks or sooner if needed. Exam Data for Last 24 hours Vital signs and Labs for Last 24 Hours: Temp Pulse Resp BP Pulse Ox 98.4 F 77 17 107/55 L 97 05/22/22 04:14 05/22/22 04:14 05/22/22 04:14 05/22/22 04:14 05/21/22 19:57 I & O for Last 24 hours: Intake & Output 05/19/22 05/20/22 05/21/22
== END 2022-05-22 13:10 | disposition home or self-care (01) | DRG 805 ==
PROVIDERS: Admitting Provider Obstetrics & Gynecology; PCP Family Medicine; Visit Provider Obstetrics & Gynecology
DX: O69.81X0 Labor and delivery complicated by cord around neck, without compression, not applicable or unspecified (principal); O75.3 Other infection during labor; Z37.0 Single live birth; D62 Acute posthemorrhagic anemia; N39.0 Urinary tract infection, site not specified; Z3A.37 37 weeks gestation of pregnancy; O90.81 Anemia of the puerperium; O70.0 First degree perineal laceration during delivery; B96.20 Unspecified Escherichia coli [E. coli] as the cause of diseases classified elsewhere; B96.4 Proteus (mirabilis) (morganii) as the cause of diseases classified elsewhere; Z23 Encounter for immunization
CPT/HCPCS: 59409; 59025; 80305; 81001; 85014; 85018; 85025; 86850; 87086; 87088; 87186; 94761; C1758; C9803; G0283; J0595; J0696; J1050; U0003; U0005

== ENCOUNTER 2024-02-27 10:45 | Emergency (ER) | payer OTHER, SELFPAY ==
[2024-02-27 10:46] VITALS: BP 132/70; PULSE 77; RESP 18; TEMP 37.1; O2SAT 100; BMI 21.4
[2024-02-27 11:01] VITALS: BP 132/70; PULSE 77; RESP 17; TEMP 37.1; O2SAT 100
--- NOTE | 2024-02-27 12:08 | ED_ITS ---
<Statement entered by Michelle Hubbard MD - 03/02/24 21:37> I was consulted by the EDMUNDO, and we discussed the complexity of the problems being addressed. I approved the treatment and management plan for this patient's care in the emergency department, thus performing a substantive portion of the medical decision making. Michelle Hubbard MD, [place], FACEP Discharge Plan Disposition Patient Disposition: Home, Self-Care Condition: Fair Prescriptions Prescriptions: No Action medroxyprogesterone [Depo-Provera] 150 mg/mL suspension 150 mg IM [id number] Qty: 1 3RF Referrals Follow up/Referrals: Leonie Jung [Primary Care Provider] - See instructions Rickey Marinelli MD [Staff Physician] - See instructions Activity Restrictions/Add. Instructions Additional Instructions/Restrictions: As we discussed he will see Dr. Frausto next Friday in his clinic. Please call on Friday to get the exact appointment time. If you have inability to tolerate oral intake inability to pass stool or gas increasing pain fever etc. return to the ER immediately. Otherwise if your symptoms worsen over the same timeframe turn to the ER as needed Clinical Impressions Clinical Impression: Intussusception of small intestine Stand Alone Forms Stand Alone Forms: Work/School Release Instructions Patient Instructions: DI for Intussusception, DI for Acute Abdominal Pain Print Language Print Language: Turkmen Discharge ED Provider: Michelle Hubbard General Adult HPI <Michelle Hubbard MD - Last Filed: 02/28/24 16:08> General Chief complaint: Abdominal Pain Stated complaint: abd painx3 weeks Time Seen by Provider: 02/27/24 12:07 Mode of Arrival: Ambulatory Source of Information: Patient Limitations: No Limitations Description of Symptoms (Recalled from ER Triage Doc. by RN): c/o all over abdomen pain with more pain to the right side that started 3 weeks ago. HX of gastritis although states this feels different from her previous symptoms. History of Present Illness HPI narrative: Patient is a 23 Related Data Previous Rx's ?Medication ?Instructions ?Recorded medroxyprogesterone 150 mg/mL 150 mg IM [id number] #1 mL 09/09/23 intramuscular suspension (Depo-Provera) Allergies Allergy/AdvReac Type Severity Reaction Status Date / Time Penicillins Allergy Verified 09/09/23 14:49 <MAIKOL Kamara - Last Filed: 02/29/24 13:31> History of Present Illness HPI narrative: Patient is a 23-year-old female who presents with 3 weeks of diffuse abdominal pain. Patient states that it has been intermittent however the last 4 days it has been constant. She relates that it is more in her right side and across her upper abdomen. She denies any fever chills hemoptysis hematochezia melena hematemesis hematuria dysuria nausea vomiting or diarrhea. Patient is tolerant of oral intake and is still having bowel movements and flatus. Patient states her bowel movements are normal. [facility] <Michelle Hubbard MD - Last Filed: 02/28/24 16:08> [facility] Disclaimer: The information contained in this section may have been updated after the patient was seen, as this information can be updated by other users. 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, placental infarct Family History Other Family history of cancer Social History Smoking Status: Unknown if ever smoked alcohol intake: never substance use type: marijuana current occupational status: employed Travel in the last 8 weeks: None household members: other housing: other marital status: single number of children: 2 Have you lived/traveled outside US in past 30 days?: No Contact w/someone who lives/traveled outside US past 30 days?: No Exposure to someone with infectious disease in past 14 days?: No Do you have a fever (greater than 100.4 F or 38 C)?: No Have you tested positive for COVID-19: No Exposed to someone with COVID-19 in past 14 days?: No Do you have a sore throat?: No Do you have a cough?: No Do you have any weakness?: No Do you have any diarrhea?: No Are you experiencing any unusual bleeding?: No Do you have any muscle aches/pain?: No Do you have any abdominal pain?: Yes Are you experiencing loss of taste or smell?: No Other Medical History Have you received the Flu Vaccine for this season: No Have you received the Pneumonia Vaccine: No <MAIKOL Kamara - Last Filed: 02/29/24 13:31> ROS Obtained: Yes Systems reviewed as appropriate & no additional complaints except as documented Physical Exam <MAIKOL Kamara - Last Filed: 02/29/24 13:31> General General appearance: alert Respiratory Respiratory exam: Present normal lung sounds bilaterally Cardiovascular Cardiovascular exam: Present regular rate Neurological Exam Neurological exam: Present alert and oriented X3 Medical Decision Making <Michelle Hubbard MD - Last Filed: 02/28/24 16:08> Medical Records Screening: Per USPSTF and CDC recommendations, given the prevalence of disease in our region, it is our hospital?s policy to screen for HIV and viral Hepatitis for all patients aged 18 and over and those with ongoing risk factors. Vital Signs: 02/27/24 10:46 02/27/24 11:01 02/27/24 16:30 Temperature 98.7 F 98.7 F 98.0 F Temperature Source Oral Oral Pulse Rate 77 67 Pulse Rate [Left Radial] 77 Respiratory Rate 18 17 16 Blood Pressure 132/70 124/76 Blood Pressure [Right Arm] 132/70 Blood Pressure Mean [Right Arm] 90 Blood Pressure Source Automatic Cuff Blood Pressure Source [Right Arm] Automatic Cuff 02 Sat by Pulse Oximetry 100 100 Oxygen Delivery Method Room Air Room Air Room Air Lab Data Lab Results 02/27/24 11:04: WBC 4.7 L, RBC 4.63, Hgb 13.9, Hct 41.2, MCV 89.0, MCH 30.0, MCHC 33.7, RDW 11.5, Plt Count 191, MPV 11.6 H, Neut % (Auto) 52.7, Lymph % (Auto) 42.2, [place] % (Auto) 3.6, Eos % (Auto) 0.9, Baso % (Auto) 0.4, Neut # (Auto) 2.5, Lymph # (Auto) 2.0, [place] # (Auto) 0.2, Eos # (Auto) 0.0, Baso # (Auto) 0.0, Sodium 141, Potassium 3.8, Chloride 105, Carbon Dioxide 26, Anion Gap 13.8, BUN 9, Creatinine 0.60, Estimated Creat Clear 131, Estimated GFR 124, Est GFR ( Amer) 150, Glucose 112 H, Calcium 9.5, Total Bilirubin 0.7, AST 26, ALT 16, Alkaline Phosphatase 47, Total Protein 7.2, Albumin 4.4, Globulin 2.8, Albumin/Globulin Ratio 1.6, Lipase 75, Serum HCG, Qual Negative, Hepatitis C Antibody Non reactive, HIV Ag/Ab Combo Qual Negative 02/27/24 11:31: Urine Color Yellow, Urine Appearance Clear, Urine pH 7.0, Ur Specific [place] >= 1.030, Urine Protein 2+ A, Urine Glucose (UA) Negative, Urine Ketones Negative, Urine Blood Trace-i, Urine Nitrate Negative, Urine Bilirubin 1+ A, Urine Urobilinogen 1.0, Ur Leukocyte Esterase Negative, Urine RBC None, Urine WBC Occasional, Ur Squamous Epith Cells Occasional, Urine Bacteria Trace 02/27/24 11:04 02/27/24 11:04 Orders (Tests/Meds): ED MEDICATIONS Discontinued Medications Generic Name Dose Route Start Last Admin Trade Name Rachel PRN Reason Stop Dose Admin Iopamidol 75 ml 02/27/24 13:18 02/27/24 13:19 Iopamidol-370 (76%);100ml Bottle IV 02/27/24 13:19 75 ml ONCE ONE Administration Sodium Chloride 10 ml 02/27/24 13:18 02/27/24 13:19 Sodium Chloride 0.9% 10ml Syr (Rad Only) IV 02/27/24 13:19 10 ml ONCE ONE Administration ORDERS Category Date Time Status CT abdomen pelvis w con Stat Cat Scan 02/27/24 12:26 Completed CBC w/Auto Diff [Complete Blood Count Auto Diff] Stat Lab 02/27/24 11:04 Completed CMP [Comprehensive Metabolic Panel] Stat Lab 02/27/24 11:04 Completed HCG Qualitative, Serum Stat Lab 02/27/24 11:04 Completed HIV Combo Stat Lab 02/27/24 11:04 Completed Hep C Ab with Reflex to RNA Stat Lab 02/27/24 11:04 Completed Lipase Stat Lab 02/27/24 11:04 Completed UA [Urinalysis and Microscopic] Stat Lab 02/27/24 11:31 Completed <MAIKOL Kamara - Last Filed: 02/29/24 13:31> Medical Records Medical records reviewed: Yes I reviewed the patient's medical records. [place] Inquiry Pt receiving controlled substance: No Vital Signs: 02/27/24 10:46 02/27/24 11:01 02/27/24 16:30 Temperature 98.7 F 98.7 F 98.0 F Temperature Source Oral Oral Pulse Rate 77 67 Pulse Rate [Left Radial] 77 Respiratory Rate 18 17 16 Blood Pressure 132/70 124/76 Blood Pressure [Right Arm] 132/70 Blood Pressure Mean [Right Arm] 90 Blood Pressure Source Automatic Cuff Blood Pressure Source [Right Arm] Automatic Cuff 02 Sat by Pulse Oximetry 100 100 Oxygen Delivery Method Room Air Room Air Room Air Lab Data Lab results reviewed: Yes I reviewed the patient's lab results. Lab Results 02/27/24 11:04: WBC 4.7 L, RBC 4.63, Hgb 13.9, Hct 41.2, MCV 89.0, MCH 30.0, MCHC 33.7, RDW 11.5, Plt Count 191, MPV 11.6 H, Neut % (Auto) 52.7, Lymph % (Auto) 42.2, [place] % (Auto) 3.6, Eos % (Auto) 0.9, Baso % (Auto) 0.4, Neut # (Auto) 2.5, Lymph # (Auto) 2.0, [place] # (Auto) 0.2, Eos # (Auto) 0.0, Baso # (Auto) 0.0, Sodium 141, Potassium 3.8, Chloride 105, Carbon Dioxide 26, Anion Gap 13.8, BUN 9, Creatinine 0.60, Estimated Creat Clear 131, Estimated GFR 124, Est GFR ( Amer) 150, Glucose 112 H, Calcium 9.5, Total Bilirubin 0.7, AST 26, ALT 16, Alkaline Phosphatase 47, Total Protein 7.2, Albumin 4.4, Globulin 2.8, Albumin/Globulin Ratio 1.6, Lipase 75, Serum HCG, Qual Negative, Hepatitis C Antibody Non reactive, HIV Ag/Ab Combo Qual Negative 02/27/24 11:31: Urine Color Yellow, Urine Appearance Clear, Urine pH 7.0, Ur Specific [place] >= 1.030, Urine Protein 2+ A, Urine Glucose (UA) Negative, Urine Ketones Negative, Urine Blood Trace-i, Urine Nitrate Negative, Urine Bilirubin 1+ A, Urine Urobilinogen 1.0, Ur Leukocyte Esterase Negative, Urine RBC None, Urine WBC Occasional, Ur Squamous Epith Cells Occasional, Urine Bacteria Trace Orders (Tests/Meds): ED MEDICATIONS Discontinued Medications Generic Name Dose Route Start Last Admin Trade Name Rachel PRN Reason Stop Dose Admin Iopamidol 75 ml 02/27/24 13:18 02/27/24 13:19 Iopamidol-370 (76%);100ml Bottle IV 02/27/24 13:19 75 ml ONCE ONE Administration Sodium Chloride 10 ml 02/27/24 13:18 02/27/24 13:19 Sodium Chloride 0.9% 10ml Syr (Rad Only) IV 02/27/24 13:19 10 ml ONCE ONE Administration ORDERS Category Date Time Status CT abdomen pelvis w con Stat Cat Scan 02/27/24 12:26 Completed CBC w/Auto Diff [Complete Blood Count Auto Diff] Stat Lab 02/27/24 11:04 Completed CMP [Comprehensive Metabolic Panel] Stat Lab 02/27/24 11:04 Completed HCG Qualitative, Serum Stat Lab 02/27/24 11:04 Completed HIV Combo Stat Lab 02/27/24 11:04 Completed Hep C Ab with Reflex to RNA Stat Lab 02/27/24 11:04 Completed Lipase Stat Lab 02/27/24 11:04 Completed UA [Urinalysis and Microscopic] Stat Lab 02/27/24 11:31 Completed Medical Decision Narrative: In summary patient is a 23-year-old female who presents to the emergency department for evaluation of 3 weeks of abdominal pain. Patient is hemodynamically stable upon arrival, afebrile. Physical exam is remarkable for diffuse moderate abdominal pain without rebound or guarding or rigidity. Bowel sounds normal active. There is no CVA tenderness to percussion. Patient appears to be more tender on the right side and across the upper abdomen. Differential diagnosis includes constipation versus gastroenteritis versus inflammatory bowel disease versus UTI etc. Initial workup will be conducted with hematologic labs urinalysis CT scan abdomen pelvis. Initial interventions include crystalloid bolus Toradol Tylenol Zofran. Initial workup reviewed by me shows her hematologic labs are nonactionable however my informal TURB Tatian of her CT scan abdomen pelvis shows fluid-filled small bowel with thickened bowel wall but no dilatation noted prior to radiology read. However radiology read it as small bowel to small bowel intussusception with no transition or lead point. Upon repeat evaluation had no relief from initial intervention. Given this I had interactive discussion with Dr. Marinelli of general surgery about patient management. He came to the ER to evaluate the patient. We along with the patient discussed our options and the patient appears to be stable with no red flags for obstruction at the moment. While she has not particularly gotten better in 3 weeks she also has not gotten worse. Plan will be watchful waiting with strict return precautions including inability to tolerate oral intake inability to pass stool or flatus increasing pain fever etc. She will follow-up with Dr. Do next Friday in his clinic for reevaluation. Plan is for an outpatient small bowel follow-through. Patient verbalized understanding and agreement. Critical Care <MAIKOL Kamara - Last Filed: 02/29/24 13:31> Critical Care Time Critical Care Time: No
[2024-02-27 12:20] LABS: HIV Combo NEGATIVE (Negative)
--- NOTE | 2024-02-27 12:26 | CT_ITS ---
FINAL REPORT TECHNIQUE: Thin section axial images were obtained through the abdomen after intravenous contrast. Reconstruction images were obtained from the axial data. Exam was performed using dose reduction techniques. CLINICAL HISTORY: Upper abdominal pain FINDINGS: There is bilateral, right greater than left lower lobe airspace opacities consistent with pneumonia. The liver is mildly enlarged but homogeneous. The gallbladder is present. The spleen, adrenal glands, and pancreas are unremarkable. There is no hydronephrosis or solid renal mass. . There is no abdominal lymphadenopathy or ascites. There is small bowel to small bowel intussusception in the left lower quadrant. Inpatient of this age, this is likely transient and of no significance. The appendix is not visualized but there are no secondary findings to suggest appendicitis. The uterus and ovaries are unremarkable for age. There is pelvic free fluid, likely physiologic. There is no pelvic lymphadenopathy. No acute osseous abnormalities identified. IMPRESSION: Bilateral lower lobe pneumonia. Mild hepatomegaly. Reviewed, Interpreted and Dictated by Nicolasa Childs MD Transcribed by Karli Bell Authenticated and [facility]
[2024-02-27 12:32] LABS: Basophils % 0.4 % (0.1-2.0); Eosinophils % 0.9 % (0.1-12.0); Hematocrit 41.2 % (37.0-47.0); Hemoglobin 13.9 g/dL (12.2-16.2); Lymphocytes % 42.2 % (10-50); Mean Corpuscular HGB Conc 33.7 g/dL (31.8-35.4); Mean Platelet Volume 11.6 fl (7.4-10.4); Monocytes # 0.2 K/mm3 (0.1-1.0); Monocytes % 3.6 % (1.7-9.3); Neutrophils # 2.5 K/mm3 (1.8-7.8); Neutrophils % 52.7 % (37.0-80.0); Platelet Count 191 K/mm3 (142-424); Red Blood Count 4.63 M/mm3 (4.20-5.40); Red Cell Distribution Width 11.5 % (11.5-17.5); White Blood Count 4.7 K/mm3 (4.8-10.8)
[2024-02-27 12:33] LABS: Chloride 105 mmol/L (98-107)
[2024-02-27 12:34] LABS: Albumin Level 4.4 g/dl (3.5-5.0); Potassium 3.8 mmoL/L (3.5-5.1); Sodium 141 mmol/L (136-145)
[2024-02-27 12:36] LABS: Microscopic, Urine URINE MICROSCOPIC (MICROSCOPIC)
[2024-02-27 12:37] LABS: Alanine Aminotransferase 16 U/L (12-78); Albumin/Globulin Ratio 1.6 (1.1-1.8); Alkaline Phosphatase 47 U/L (38-126); Anion Gap 13.8 mEq/L (5-15); Aspartate Amino Transferase 26 U/L (14-36); Bilirubin,Total 0.7 mg/dl (0.2-1.3); Blood Urea Nitrogen 9 mg/dl (7-17); Calcium 9.5 mg/dl (8.4-10.2); Carbon Dioxide 26 mmol/L (22.0-30.0); Creatinine Clearance Estimated 131 mL/min (50-200); Estimated Glomerular Filt Rate 124 ml/min (>60); GFR (African American) 150 ML/MIN (>60); Globulin 2.8 g/dL (1.3-3.2); Glucose 112 mg/dl (74-100); Lipase 75 U/L (23-300); Total Protein,Serum 7.2 g/dl (6.3-8.2)
[2024-02-27 12:41] LABS: Appearance,Urine CLEAR (Clear); Blood, Urine TRACE-I (Negative); Color,Urine YELLOW (Yellow); Glucose,Urine (UA) Negative (Negative); Ketones,Urine Negative (Negative); Leukocyte Esterase,Urine Negative (Negative); Nitrate,Urine Negative (Negative); Protein,Urine 2+ (Negative); Specific Gravity, Urine >= 1.030 (1.005-1.030)
[2024-02-27 12:48] LABS: HCG Qualitative, Serum Negative (Negative)
[2024-02-27 12:53] LABS: Bacteria,Urine Trace /lpf; Bilirubin,Urine 1+ (Negative); Squamous Epithelial Cell,Urine Occasional #/hpf (0-5); WBC,Urine Occasional #/hpf (0-3)
[2024-02-27] MEDS: SODIUM CHLORIDE 0.9% 10ML SYR (RAD ONLY) 10 ML IV (13:19)
[2024-02-27] MEDS: IOPAMIDOL-370 (76%);100ML BOTTLE 75 ML IV (13:19)
--- NOTE | 2024-02-27 14:21 | PC.NURSE ---
pt. sitting in chair at this time. no needs call light in reach
--- NOTE | 2024-02-27 15:56 | PC.NURSE ---
attempted to call office for an appt, staff not in the office
--- NOTE | 2024-02-27 16:05 | EXP.SURG.CON ---
History of Present Illness *Admission Date: 02/27/24 *Reason for visit:: Abdominal pain *History of present illness: This is a 23-year-old female who presents emergency department with 3 weeks of mid/lower abdominal pain. Evaluation included a CT scan that revealed apparent small bowel to small bowel intussusception of undetermined significance. She states that she feels better than earlier . She continues to have bowel function. No fevers. No nausea. No blood per rectum. [facility] Disclaimer: The information contained in this section may have been updated after the patient was seen, as this information can be updated by other users. 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, placental infarct Family History Other Family history of cancer Social History Smoking Status: Unknown if ever smoked alcohol intake: never substance use type: marijuana current occupational status: employed Travel in the last 8 weeks: None household members: other housing: other marital status: single number of children: 2 Have you lived/traveled outside US in past 30 days?: No Contact w/someone who lives/traveled outside US past 30 days?: No Exposure to someone with infectious disease in past 14 days?: No Do you have a fever (greater than 100.4 F or 38 C)?: No Have you tested positive for COVID-19: No Exposed to someone with COVID-19 in past 14 days?: No Do you have a sore throat?: No Do you have a cough?: No Do you have any weakness?: No Do you have any diarrhea?: No Are you experiencing any unusual bleeding?: No Do you have any muscle aches/pain?: No Do you have any abdominal pain?: Yes Are you experiencing loss of taste or smell?: No Meds Home Medications and Allergies Home Medications ?Medication ?Instructions ?Recorded ?Confirmed ?Type medroxyprogesterone 150 mg/mL 150 mg IM [id number] #1 mL 09/09/23 09/09/23 Rx intramuscular suspension (Depo-Provera) New Prescriptions to Start Prescriptions: Allergies Allergy/AdvReac Type Severity Reaction Status Date / Time Penicillins Allergy Verified 09/09/23 14:49 Exam (Inpt) Vital signs and Labs for Last 24 Hours: Temp Pulse Resp BP Pulse Ox O2 Del Method 98.7 F 77 17 132/70 100 Room Air 02/27/24 11:02/27/24 11:02/27/24 11:02/27/24 11:02/27/24 11:02/27/24 11:01 Laboratory Results - last 24 hr 02/27/24 11:04: WBC 4.7 L, RBC 4.63, Hgb 13.9, Hct 41.2, MCV 89.0, MCH 30.0, MCHC 33.7, RDW 11.5, Plt Count 191, MPV 11.6 H, Neut % (Auto) 52.7, Lymph % (Auto) 42.2, [place] % (Auto) 3.6, Eos % (Auto) 0.9, Baso % (Auto) 0.4, Neut # (Auto) 2.5, Lymph # (Auto) 2.0, [place] # (Auto) 0.2, Eos # (Auto) 0.0, Baso # (Auto) 0.0, Sodium 141, Potassium 3.8, Chloride 105, Carbon Dioxide 26, Anion Gap 13.8, BUN 9, Creatinine 0.60, Estimated Creat Clear 131, Estimated GFR 124, Est GFR ( Amer) 150, Glucose 112 H, Calcium 9.5, Total Bilirubin 0.7, AST 26, ALT 16, Alkaline Phosphatase 47, Total Protein 7.2, Albumin 4.4, Globulin 2.8, Albumin/Globulin Ratio 1.6, Lipase 75, Serum HCG, Qual Negative, HIV Ag/Ab Combo Qual Negative 02/27/24 11:31: Urine Color Yellow, Urine Appearance Clear, Urine pH 7.0, Ur Specific [place] >= 1.030, Urine Protein 2+ A, Urine Glucose (UA) Negative, Urine Ketones Negative, Urine Blood Trace-i, Urine Nitrate Negative, Urine Bilirubin 1+ A, Urine Urobilinogen 1.0, Ur Leukocyte Esterase Negative, Urine RBC None, Urine WBC Occasional, Ur Squamous Epith Cells Occasional, Urine Bacteria Trace I & O for Labs for Last 24 Hours: Intake & Output 02/25/24 02/26/24 02/27/24 02/28/24 11:59 11:59 11:59 11:59 Weight 125 lb Constitutional: no acute distress Respiratory: Absent respiratory distress GI: Present soft and tenderness (Mild to moderate tenderness throughout mid and lower abdomen); Absent guarding or rebound Results Labs 02/27/24 11:04 02/27/24 11:04 Labs: Laboratory Results - last 24 hr 02/27/24 11:04: WBC 4.7 L, RBC 4.63, Hgb 13.9, Hct 41.2, MCV 89.0, MCH 30.0, MCHC 33.7, RDW 11.5, Plt Count 191, MPV 11.6 H, Neut % (Auto) 52.7, Lymph % (Auto) 42.2, [place] % (Auto) 3.6, Eos % (Auto) 0.9, Baso % (Auto) 0.4, Neut # (Auto) 2.5, Lymph # (Auto) 2.0, [place] # (Auto) 0.2, Eos # (Auto) 0.0, Baso # (Auto) 0.0, Sodium 141, Potassium 3.8, Chloride 105, Carbon Dioxide 26, Anion Gap 13.8, BUN 9, Creatinine 0.60, Estimated Creat Clear 131, Estimated GFR 124, Est GFR ( Amer) 150, Glucose 112 H, Calcium 9.5, Total Bilirubin 0.7, AST 26, ALT 16, Alkaline Phosphatase 47, Total Protein 7.2, Albumin 4.4, Globulin 2.8, Albumin/Globulin Ratio 1.6, Lipase 75, Serum HCG, Qual Negative, HIV Ag/Ab Combo Qual Negative 02/27/24 11:31: Urine Color Yellow, Urine Appearance Clear, Urine pH 7.0, Ur Specific [place] >= 1.030, Urine Protein 2+ A, Urine Glucose (UA) Negative, Urine Ketones Negative, Urine Blood Trace-i, Urine Nitrate Negative, Urine Bilirubin 1+ A, Urine Urobilinogen 1.0, Ur Leukocyte Esterase Negative, Urine RBC None, Urine WBC Occasional, Ur Squamous Epith Cells Occasional, Urine Bacteria Trace Assessment and Plan *Assessment and plan (1) Intussusception of small intestine: Status: Acute Category: Medical Code(s): K56.1 - Intussusception Plan: Small bowel to small bowel intussusception per CT scan. Equivocal with regard to etiology and equivocal with regard to relation to symptomatology. I have had a long discussion with the patient concern the risks and benefits of operative intervention. She wishes to avoid surgery if possible . She has no evidence of peritonitis. She continues to have bowel function. The patient wishes to be discharged home and plans to continue with close outpatient follow-up. She will follow-up on Sunday, March 03, 2024. The patient is agreeable to return immediately to the emergency department if she develops fever, blood per rectum, nausea vomiting, increased pain, etc.
[2024-02-27 16:30] VITALS: BP 124/76; PULSE 67; RESP 16; TEMP 36.7; O2SAT 98
[2024-02-28 06:10] LABS: HCV Ab Non Reactive (Non Reactive)
== END 2024-02-27 16:32 | disposition home or self-care (01) ==
PROVIDERS: Physician Assistant; Emergency Provider Student in an Organized Health Care Education/Training Program; PCP Family Medicine
DX: K56.1 Intussusception (principal); R10.9 Unspecified abdominal pain
CPT/HCPCS: 74177; 80053; 81001; 83690; 84703; 85025; 86803; 87389; 99285; Q9967

== ENCOUNTER 2024-07-12 13:02 | Outpatient (CLI) | payer OTHER, SELFPAY ==
--- NOTE | 2024-07-12 13:18 | US_ITS ---
PROCEDURE: US TRANSVAGINAL CLINICAL INDICATION: AUB COMPARISON: CT CT ABDOMEN PELVIS W CON from 07/25/[address] ABDOMEN PELVIS W CON from 02/27/2024 FINDINGS: Transvaginal sonographic images of the pelvis were obtained. UTERUS: 8.2cm x 5.8 cmx 4.2cm anteverted with a combined endometrial thickness of 3.9mm. There is a small amount of blood and movement of blood within the endometrial cavity. LEFT OVARY: 2.8 cmx2.9 cmx2.6cm with a volume of 11ml. There is a follicle measuring 2.0 cm x 2.3 cm x 2.0 cm RIGHT OVARY: 1.9 cmx 1.7 cmx2.3cm with a volume of 3.9ml. There appears to be a collapsing follicle in the right ovary measuring 1.8 cm by 0.73 cm. Likely a corpus luteum. Both ovaries are seen and appear normal. Doppler flow to both ovaries are seen. There is no fluid in the cul-de-sac. IMPRESSION: 1. Anteverted uterus normal in shape and size. The endometrium is thin and there appears to be a small amount of blood within the endometrium with movement. There is a small amount of fluid within the cervix. 2. Both ovaries are seen and appear normal. They left ovary has a 2.3 cm follicle. The right ovary has what appears to be a collapsing corpus luteum. 3. No fluid in the cul-de-sac. Dictated by: Kory Alvarado MD 07/12/2024 17:49 Kory Alvarado MD in OV 07/12/2024 17:49
[2024-07-12 13:58] LABS: Basophils % 0.4 % (0.1-2.0); Eosinophils % 0.6 % (0.1-12.0); Hematocrit 42.6 % (37.0-47.0); Hemoglobin 14.4 g/dL (12.2-16.2); Immature Granulocytes # 0.01 10^3uL; Immature Granulocytes % 0.2 %; Lymphocytes # 2.1 K/mm3 (0.7-4.5); Lymphocytes % 42.8 % (10-50); Mean Corpuscular HGB Conc 33.8 g/dL (31.8-35.4); Mean Corpuscular Hemoglobin 29.8 pg (27.0-31.2); Mean Corpuscular Volume 88.2 fl (81-99); Mean Platelet Volume 11.7 fl (7.4-10.4); Monocytes # 0.2 K/mm3 (0.1-1.0); Monocytes % 3.5 % (1.7-9.3); Neutrophils # 2.6 K/mm3 (1.8-7.8); Neutrophils % 52.5 % (37.0-80.0); Nucleated Red Blood Cells # 0 10^3/uL; Nucleated Red Blood Cells % 0 %; Platelet Count 158 K/mm3 (142-424); Red Blood Count 4.83 M/mm3 (4.20-5.40); Red Cell Distribution Width 12.8 % (11.5-17.5); Red Cell Distribution Width-SD 41.5 fL; White Blood Count 4.9 K/mm3 (4.8-10.8)
[2024-07-12 14:46] LABS: Thyroid Stimulating Hormone 2.44 uIU/mL (0.465-4.68)
[2024-07-13 07:10] LABS: Testosterone,Total 14 ng/dL (13-71)
[2024-07-13 09:10] LABS: LH 5.9 mIU/mL (.); Progesterone 0.3 ng/mL (.)
== END 2024-07-12 23:59 | disposition home or self-care (01) ==
LOC: RAD 13:03
PROVIDERS: PCP Family Medicine; Visit Provider Obstetrics & Gynecology
DX: N83.02 Follicular cyst of left ovary (principal); R93.89 Abnormal findings on diagnostic imaging of other specified body structures; N93.9 Abnormal uterine and vaginal bleeding, unspecified
CPT/HCPCS: 36415; 76830; 82670; 83001; 83002; 84144; 84403; 84443; 85025

== ENCOUNTER 2024-08-11 10:49 | Outpatient (CLI) | payer OTHER, SELFPAY ==
[2024-08-11 10:58] VITALS: BMI 20.5
[2024-08-11 11:25] LABS: Basophils % 0.5 % (0.1-2.0); Eosinophils # 0.1 Kmm3 (0.0-0.4); Eosinophils % 1.7 % (0.1-12.0); Hematocrit 39.3 % (37.0-47.0); Immature Granulocytes # 0.01 10^3uL; Immature Granulocytes % 0.2 %; Lymphocytes # 1.8 K/mm3 (0.7-4.5); Lymphocytes % 42.5 % (10-50); Mean Corpuscular HGB Conc 33.1 g/dL (31.8-35.4); Mean Corpuscular Hemoglobin 29.3 pg (27.0-31.2); Mean Corpuscular Volume 88.5 fl (81-99); Mean Platelet Volume 11.5 fl (7.4-10.4); Monocytes # 0.2 K/mm3 (0.1-1.0); Monocytes % 3.6 % (1.7-9.3); Neutrophils # 2.1 K/mm3 (1.8-7.8); Neutrophils % 51.5 % (37.0-80.0); Nucleated Red Blood Cells # 0 10^3/uL; Nucleated Red Blood Cells % 0 %; Platelet Count 150 K/mm3 (142-424); Red Blood Count 4.44 M/mm3 (4.20-5.40); Red Cell Distribution Width 12.6 % (11.5-17.5); Red Cell Distribution Width-SD 40.8 fL; White Blood Count 4.1 K/mm3 (4.8-10.8)
[2024-08-11 11:43] LABS: Albumin Level 4.3 g/dl (3.5-5.0); Chloride 107 mmol/L (98-107); Sodium 139 mmol/L (136-145)
[2024-08-11 11:44] LABS: Potassium 3.9 mmoL/L (3.5-5.1)
[2024-08-11 11:46] LABS: Alanine Aminotransferase 14 U/L (12-78); Albumin/Globulin Ratio 1.5 (1.1-1.8); Anion Gap 8.9 mEq/L (5-15); Aspartate Amino Transferase 23 U/L (14-36); Blood Urea Nitrogen 8 mg/dl (7-17); Carbon Dioxide 27 mmol/L (22.0-30.0); Creatinine Clearance Estimated 125 mL/min (50-200); Estimated Glomerular Filt Rate 124 ml/min (>60); GFR (African American) 150 ML/MIN (>60); Globulin 2.8 g/dL (1.3-3.2); Total Protein,Serum 7.1 g/dl (6.3-8.2)
[2024-08-11 11:47] LABS: Alkaline Phosphatase 39 U/L (38-126); Bilirubin,Total 0.6 mg/dl (0.2-1.3); Calcium 9.4 mg/dl (8.4-10.2); Glucose 100 mg/dl (74-100)
[2024-08-11 12:49] LABS: HCG Qualitative, Serum Negative (Negative)
== END 2024-08-11 23:59 | disposition home or self-care (01) ==
LOC: PREOP 10:50
PROVIDERS: PCP Family Medicine; Visit Provider Obstetrics & Gynecology
DX: Z01.812 Encounter for preprocedural laboratory examination (principal)
CPT/HCPCS: 80053; 84703; 85025

== ENCOUNTER 2024-08-16 06:07 | Day surgery (SDC) | payer OTHER, SELFPAY ==
[2024-08-11 12:45] VITALS: BMI 20.5
[2024-08-16] VITALS (12 sets, daily range): BP systolic 96–132; BP diastolic 45–95; PULSE 52–65; RESP 12–18; TEMP 36.1–36.7; O2SAT 99–100
[2024-08-16] MEDS: ACETAMINOPHEN 500MG TAB 1000 MG PO (06:41)
[2024-08-16] MEDS: LACTATED RINGERS 1000ML 1,000 ML 25 ML IV (06:41)
--- NOTE | 2024-08-16 07:04 | P.PNANES_ITS ---
[facility] Disclaimer: The information contained in this section may have been updated after the patient was seen, as this information can be updated by other users. Medical History Abnormal uterine bleeding Acute blood loss anemia Gastritis ASCUS favoring benign History of pre-eclampsia History of intrauterine Surgical History History of adenoidectomy History of gastric surgery History of colonoscopy Family History Other Family history of cancer Family history of diabetes mellitus Social History (Updated 08/16/24 @ 06:25 by Jenae Galdamez RN) Smoking Status: Current every day smoker alcohol intake: never substance use type: marijuana current occupational status: employed Travel in the last 8 weeks?: Inside the [facility] household members: other housing: other marital status: single number of children: 2 Have you lived/traveled outside [place] in past 30 days?: No Contact w/someone who lives/traveled outside [place] past 30 days?: No Exposure to someone with infectious disease in past 14 days?: No Do you have a fever (greater than 100.4 F or 38 C)?: No Have you tested positive for COVID-19?: No Exposed to someone with COVID-19 in past 14 days?: No Do you have a sore throat?: No Do you have a cough?: No Do you have any weakness?: No Do you have any diarrhea?: No Are you experiencing any unusual bleeding?: No Do you have any muscle aches/pain?: No Do you have any abdominal pain?: No Are you experiencing loss of taste or smell?: No [facility] Anesthesia Checklist Patient Identification Patient Identification: Arm Band Structural Data Admitted From: Home Planned Operative Procedure/s: Hysteroscopy, D&C, Myosure Consent for Planned Operative Procedure(s) Verified: Yes Verified Documents: Surgical Consent and History and Physical NPO Status Verified Time NPO: 00:00 Additional verifications Anesthesia Reactions: No Hx Blood Transfusions: No Blood Transfusion Reaction: No Airway Assessment Mallampati Score:: Class II C-Spine Mobility Assessed: Yes TMJ Mobility Assessed: Yes Dentition: Good Dentition Neurological Assessment Level of Consciousness: Awake, Alert and Appropriate Anesthesia Plan Anesthesia Risk discussed: Yes Anesthesia Plan: Verified ASA Class: II Anesthesia Type: General
--- NOTE | 2024-08-16 07:53 | EXP.OP.NOTE ---
Date of procedure: 08/16/24 Pre-op Diagnosis:: 1. Abnormal uterine bleeding Post-op Diagnosis:: 1. Abnormal uterine bleeding Procedure performed:: 1. Hysteroscopy, dilation and curettage Surgeon:: Marla Gregory DO [employer] Supervisor(s):: N/a Anesthesia: ABBE Estimated blood loss (mL): 0 Clinical Note:: Ms Nara Carpenter is a 23 yo [id number] who presents to [facility] for scheduled procedure. She complains of abnormal uterine bleeding. She was on Depo Provera for 2 years and stopped it about 7 months ago. She states she is Bipolar and she felt Depo was making her mood worse. She admits she feels better since stopping it. She had two normal periods after stopping Depo Provera. Then in March she had a period the first week and then again the last week of March. She has been bleeding every day since the last week of March. Color and flow varies from day to day. She has tried Nexplanon in the past but states she bled every day for 7 months. She tried OCPs in the past and did okay with them but ended up . She would like to avoid hormones. Pelvic ultrasound 07/12/24 demonstrated 1. anteverted uterus normal in shape and size. The endometrium is thin and there appears to be a small amount of blood within the endometrium with movement. There is a small amount of fluid within the cervix. 2. Both ovaries are seen and appear normal. They left ovary has a 2.3 cm follicle. The right ovary has what appears to be a collapsing corpus luteum. 3. No fluid in the cul-de-sac. Operative findings:: 1. On bimanual exam, uterus normal size and shape, anteverted. No adnexal masses palpated 2. On hysteroscopic exam, bilateral tubal ostia easilyvisualized. Scant normal appearing endometrial tissue. No masses or polyps Operative note:: Risks, benefits and alternatives were discussed with the patient. Risks include but are not limited to bleeding, infection, uterine perforation and VTE. Patient voiced understanding and agreed to proceed. She was wheeled back to the operating room and placed under MAC without difficulty. She was placed in dorsal lithotomy position and prepped and draped in the normal sterile fashion. Straight catheter was used to drain the bladder. A bimanual exam was performed. A weighted Auvard was placed in the vaginal vault. Single tooth tenaculum was placed on anterior lip of the cervix. Uterus sounded to 8. Sequential Johnnie dilators were used to dilate the cervical os. Hysteroscope was tested inserted through the cervix without difficulty. Endometrial cavity was evaluated. See findings above. Pictures were taken. A medium size sharp curette was inserted through the cervix into the uterine cavity and endometrium was curetted with a systematic back and forth movement in a 360 degree manner. Endometrial curettings will be sent to pathology for review. Instruments were removed from the vagina. Tenaculum site was hemostatic. Patient was awaken from anesthesia without difficulty. She was transported to recovery room in stable condition. Patient will be discharged home when awake and ambulating. She was given postop instructions as well as instructions to follow-up in the office in 2 weeks at which time pathology will be reviewed. Condition: stable Disposition: same day Specimens:: 1. Endometrial curettings Complications:: None
--- NOTE | 2024-08-16 08:05 | P.PNANES_ITS ---
[facility] Anesthesia Record Part I Anesthesia Record I Intake, IV Amount: 1,500 Hydration: Adequate Estimated blood loss (mL): 0 Urine output (mL): 0 Blood Pressure: 100/58 SaO2: 99 Pulse Rate: 55 Airway Patency: Patent Respiratory Rate: 12 Temperature: 97.8 F Patient is:: Drowsy and Stable Stable to PACU at:: 08:00
--- NOTE | 2024-08-16 11:37 | EXP.ANES.II ---
[facility] Anesthesia Record Part II Anesthesia Record Part II Discharge Time: 08:30 Destination: Surgical Day Care (OP Surgery) PACU nurse assessment reviewed?: Yes Patient Condition:: Good Anesthesia Complications:: None Swallowing reflex intact?: Yes Airway Patency: Patent Cyanosis?: No Blood Pressure: 109/65 SaO2: 100 Respiratory Rate: 18 Pulse Rate: 52 Temperature: 97.6 F Mental Status: Alert & Oriented Pain level:: 0 Nausea and/or vomitting:: None Intake, IV Amount: 0 Hydration: Adequate
== END 2024-08-16 09:22 | disposition home or self-care (01) ==
PROVIDERS: PCP Family Medicine; Visit Provider Obstetrics & Gynecology
PROC: 0UDB8ZZ Extraction of Endometrium, Via Natural or Artificial Opening Endoscopic (ICD-10-PCS; CPT 58558; principal; 2024-08-16 07:30)
DX: N93.9 Abnormal uterine and vaginal bleeding, unspecified (principal); F17.200 Nicotine dependence, unspecified, uncomplicated; Z88.0 Allergy status to penicillin
CPT/HCPCS: 58558; J1100; J1885; J2003; J2250; J2405; J2704; J3010; J7120

== ENCOUNTER 2024-09-28 11:56 | Emergency (ER) | payer OTHER, SELFPAY ==
--- NOTE | 2024-09-28 12:01 | HMH.EDGENADL ---
Discharge Plan Disposition Patient Disposition: Home, Self-Care Condition: Good Prescriptions Prescriptions: New promethazine 12.5 mg tablet 12.5 mg PO TID PRN (Reason: allergy symptoms) Qty: 14 0RF Rx Instructions: 3 doses during day; last dose no later than 4 hr before bedtime No Action norethindrone-e.estradiol-iron [03/15 (28)] 1 mg-20 mcg (21)/75 mg (7) tablet 1 tab PO DAILY Qty: 84 0RF ibuprofen 800 mg tablet 800 mg PO Q8H PRN (Reason: pain) Qty: 20 0RF hydrocodone-acetaminophen 5-325 mg tablet 1 tab PO Q6H PRN (Reason: pain) Qty: 10 0RF Referrals Follow up/Referrals: Leonie Jung [Primary Care Provider, Medical] - See instructions Activity Restrictions/Add. Instructions Additional Instructions/Restrictions: Please return to the emergency department with any worsening signs or symptoms, please utilize your antinausea medication as prescribed, do not take this with other antinausea medicine such as Zofran, please take either or. Please progress diet as tolerated, recommend good intake with p.o. solids and liquids, please follow-up with your family doctor in the upcoming days. Clinical Impressions Clinical Impression: Nausea vomiting and diarrhea Instructions Patient Instructions: DI for Vomiting -- Adult Print Language Print Language: Maltese Discharge ED Provider: Rolly Zamorano Adult HPI <MAIKOL Patterson - Last Filed: 09/28/24 13:18> General Chief complaint: Abdominal Pain Stated complaint: upset stomach, diarrhea Time Seen by Provider: 09/28/24 12:00 Mode of Arrival: Ambulatory Source of Information: Patient Limitations: No Limitations History of Present Illness HPI narrative: 44-year-old female presents emergency department with 5-day history of nausea vomiting diarrhea abdominal cramping, and poor p.o. intake, patient endorses recent sick contact being children , who had similar GI symptomatology, but with more diarrhea, patient denies any fever chills chest pain shortness of breath, denies any urinary type symptomatology, denies any melena, hematochezia, denies true hematemesis but states some of my vomit may add a little bit of blood in it the other day , patient has no other real relevant past medical history with exception of gastritis , takes no other medications daily at home, has been utilizing Zofran, Pepto-Bismol with little to no relief or symptomatology. Initial triage vitals are unremarkable, patient is a current everyday smoker (vapes), denies any alcohol or drug use. Patient recently had what sounds like a D&C for abnormal uterine bleeding several months ago. Please note that above description of symptoms, in this electronic medical record under categorization of recalled from ER triage doctor by RN are reflective of an initial nursing assessment, however, is not reflective of my full history and physical exam that was personally taken and clarified. Consequentially, this preceding description of symptoms, which may include the patient's categorized chief complaint in the EMR, do not reflect my personal clinical impression, and the ultimate description of history of present illness and patient stated complaints should be deferred to this section of the note. Unless stated otherwise or congruent with this section of the note, additional signs, symptoms, or incongruence should be interpreted as inaccurate with my clinical impression. Onset (ago): day(s) Related Data Previous Rx's ?Medication ?Instructions ?Recorded hydrocodone 5 mg-acetaminophen 325 1 tab PO Q6H PRN pain #10 tabs 08/16/24 mg tablet ibuprofen 800 mg tablet 800 mg PO Q8H PRN pain #20 tabs 08/16/24 norethindrone 1 mg-ethinyl 1 tab PO DAILY #84 tabs 09/02/24 estradiol 20 mcg (21)-iron 75 mg (7) tablet (03/15 (28)) promethazine 12.5 mg tablet 12.5 mg PO TID PRN allergy 09/28/24 symptoms #14 tabs Allergies Allergy/AdvReac Type Severity Reaction Status Date / Time Penicillins Allergy Hives Verified 09/02/24 13:36 PFS <MAIKOL Patterson - Last Filed: 09/28/24 13:18> [facility] Disclaimer: The information contained in this section may have been updated after the patient was seen, as this information can be updated by other users. 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, placental infarct Surgical History History of adenoidectomy History of gastric surgery History of colonoscopy Family History Other Family history of cancer Family history of diabetes mellitus Social History Smoking Status: Current every day smoker alcohol intake: never substance use type: marijuana current occupational status: employed Travel in the last 8 weeks?: Inside the [place] household members: other housing: other marital status: single number of children: 2 Have you lived/traveled outside US in past 30 days?: No Contact w/someone who lives/traveled outside US past 30 days?: No Exposure to someone with infectious disease in past 14 days?: No Do you have a fever (greater than 100.4 F or 38 C)?: No Have you tested positive for COVID-19?: No Exposed to someone with COVID-19 in past 14 days?: No Do you have a sore throat?: No Do you have a cough?: No Do you have any weakness?: No Do you have any diarrhea?: Yes Are you experiencing any unusual bleeding?: No Do you have any muscle aches/pain?: No Do you have any abdominal pain?: Yes Are you experiencing loss of taste or smell?: No Other Medical History Have you received the Flu Vaccine for this season: No Have you received the Pneumonia Vaccine: No <MAIKOL Patterson - Last Filed: 09/28/24 13:18> ROS Obtained: Yes All systems reviewed & no additional complaints except as documented Physical Exam <MAIKOL Patterson - Last Filed: 09/28/24 13:18> General General appearance: alert and in no apparent distress Head Head exam: atraumatic and normocephalic Eye Eye exam: Present PERRL and EOMI ENT ENT exam: Present mucous membranes moist Neck Neck exam: Present normal inspection Chest Chest inspection: Present normal inspection and symmetric chest wall rise Respiratory Respiratory exam: Present normal lung sounds bilaterally; Absent respiratory distress Cardiovascular Cardiovascular exam: Present regular rate and normal rhythm Abdominal Exam Abdominal exam: Present soft; Absent tenderness Extremities Exam Extremities exam: Present normal inspection Neurological Exam Neurological exam: Present alert and oriented X3 Psychiatric Psychiatric exam: Present normal affect Skin Skin exam: Present warm and dry Medical Decision Making <MAIKOL Patterson - Last Filed: 09/28/24 13:18> Medical Records Medical records reviewed: Yes I reviewed the patient's medical records. Screening: Per USPSTF and CDC recommendations, given the prevalence of disease in our region, it is our hospital?s policy to screen for HIV and viral Hepatitis for all patients aged 18 and over and those with ongoing risk factors. Castillo Inquiry Pt receiving controlled substance: No Castillo was queried for this patient: No Vital Signs: 09/28/24 12:13 Temperature 98.1 F Temperature Source Oral Pulse Rate [Left Radial] 73 Respiratory Rate 20 Blood Pressure [Right Arm] 109/67 L Blood Pressure Mean [Right Arm] 81 02 Sat by Pulse Oximetry 98 Oxygen Delivery Method Room Air Lab Data Lab results reviewed: Yes I reviewed the patient's lab results. Lab Results 09/28/24 12:00: Urine Color Yellow, Urine Appearance Clear, Urine pH 6.0, Ur Specific [place] <= 1.005, Urine Protein 1+ A, Urine Glucose (UA) Negative, Urine Ketones Negative, Urine Blood 3+ A, Urine Nitrate Negative, Urine Bilirubin Negative, Urine Urobilinogen 0.2, Ur Leukocyte Esterase Negative, Urine RBC 10-20, Urine WBC 3-5, Ur Squamous Epith Cells 3-5, Urine Bacteria Trace, Urine Mucus 1+, Urine HCG, Qual Negative 09/28/24 12:19: WBC 4.7 L, RBC 4.82, Hgb 14.6, Hct 42.8, MCV 88.8, MCH 30.3, MCHC 34.1, RDW 12.1, Plt Count 126 L, MPV 11.1 H, Neut % (Auto) 81.5 H, Lymph % (Auto) 10.3, Howell % (Auto) 6.7, Eos % (Auto) 0.9, Baso % (Auto) 0.4, Neut # (Auto) 3.8, Lymph # (Auto) 0.5 L, Howell # (Auto) 0.3, Eos # (Auto) 0.0, Baso # (Auto) 0.0, Total Counted 100, Neutrophils % (Manual) 81 H, Lymphocytes % (Manual) 16, Monocytes % (Manual) 2, Eosinophils % (Manual) 1, Platelet Estimate Normal, RBC Morphology Normal, Sodium 137, Potassium 3.6, Chloride 105, Carbon Dioxide 27, Anion Gap 8.6, BUN 9, Creatinine 0.60, Estimated Creat Clear 129, Estimated GFR 123, Est GFR ( Amer) 149, Glucose 105 H, Calcium 9.4, Magnesium 1.6, Total Bilirubin 0.4, AST 41 H, ALT 16, Alkaline Phosphatase 46, Total Protein 7.0, Albumin 4.4, Globulin 2.6, Albumin/Globulin Ratio 1.7, Lipase 52 09/28/24 12:19 09/28/24 12:19 Orders (Tests/Meds): ED MEDICATIONS Discontinued Medications Generic Name Dose Route Start Last Admin Trade Name Freq PRN Reason Stop Dose Admin Lactated Ringer's 1,000 mls @ 999 mls/hr 09/28/24 12:07 09/28/24 12:24 Lactated Ringer's 1000 Ml Bag IV 09/28/24 13:07 999 mls/hr .Q1H1M ONE Administration Promethazine HCl 12.5 mg 09/28/24 12:07 09/28/24 12:23 Promethazine Hcl 12.5mg Tablet PO 09/28/24 12:08 12.5 mg ONCE ONE Administration ORDERS Category Date Time Status Complete Blood Count Auto Diff Stat Lab 09/28/24 12:19 Completed Comprehensive Metabolic Panel Stat Lab 09/28/24 12:19 Completed Lipase Stat Lab 09/28/24 12:19 Completed Magnesium Stat Lab 09/28/24 12:19 Completed Urinalysis and Microscopic Stat Lab 09/28/24 12:00 Completed Urine , HCG Qual. Stat Lab 09/28/24 12:00 Completed Medical Decision Narrative: 24-year-old female presents emergency department with nausea vomiting diarrhea for 5 days, differential diagnose include but not limited to, gastroenteritis, gastritis, GERD, acute UTI, colitis, ileitis, cardiac arrhythmia, electrolyte disturbance, pancreatitis, physiologic among others. I discussed this patient's case with the attending physician Will obtain basic laboratory studies, EKG, lipase level, magnesium level, UA, urine hCG, will give 1 L LR IV, and 12.5 mg of promethazine p.o. as p.o. challenge as well as antiemetic. As patient is already tried Zofran with little no relief of her symptomatology today. CBC notable for thrombocytopenia at 126 otherwise unremarkable CMP is noted for minimal AST elevation of 41, negative lipase and otherwise unremarkable CBC Urine hCG qualitative negative UA is notable for 3+ hematuria, 1+ proteinuria, negative leukocyte esterase, negative nitrites, 35 squamous epithelial cells, 10-20 RBCs, 35 WBCs, 1+ urine mucus and trace bacteria. Reexamination of the patient at approximately 1:10 PM, patient is tolerating p.o. intake with crackers and p.o. Phenergan, as well as p.o. liquids, patient is otherwise hemodynamically stable, no electrolyte discrepancies, discussed all results with her at the bedside, most likely viral gastroenteritis versus other viral illness in the setting of recent exposure to children elevated AST and clinical symptomatology. Patient was given strict ED return precautions. Patient voiced understanding and agreement with the current treatment plan/discharge plan. Patient had benign abdominal exam, no abdominal tenderness no guarding no rebound tenderness, I will prescribe the patient 12 mg p.o. Phenergan as needed for nausea and vomiting, discussed patient will need to take this or Zofran, do not take both at the same time, as Zofran provided little to no relief to her symptomatology. <Rolly Zamorano MD - Last Filed: 09/28/24 13:25> Vital Signs: 09/28/24 12:13 Temperature 98.1 F Temperature Source Oral Pulse Rate [Left Radial] 73 Respiratory Rate 20 Blood Pressure [Right Arm] 109/67 L Blood Pressure Mean [Right Arm] 81 02 Sat by Pulse Oximetry 98 Oxygen Delivery Method Room Air Lab Data Lab Results 09/28/24 12:00: Urine Color Yellow, Urine Appearance Clear, Urine pH 6.0, Ur Specific [place] <= 1.005, Urine Protein 1+ A, Urine Glucose (UA) Negative, Urine Ketones Negative, Urine Blood 3+ A, Urine Nitrate Negative, Urine Bilirubin Negative, Urine Urobilinogen 0.2, Ur Leukocyte Esterase Negative, Urine RBC 10-20, Urine WBC 3-5, Ur Squamous Epith Cells 3-5, Urine Bacteria Trace, Urine Mucus 1+, Urine HCG, Qual Negative 09/28/24 12:19: WBC 4.7 L, RBC 4.82, Hgb 14.6, Hct 42.8, MCV 88.8, MCH 30.3, MCHC 34.1, RDW 12.1, Plt Count 126 L, MPV 11.1 H, Neut % (Auto) 81.5 H, Lymph % (Auto) 10.3, Howell % (Auto) 6.7, Eos % (Auto) 0.9, Baso % (Auto) 0.4, Neut # (Auto) 3.8, Lymph # (Auto) 0.5 L, Howell # (Auto) 0.3, Eos # (Auto) 0.0, Baso # (Auto) 0.0, Total Counted 100, Neutrophils % (Manual) 81 H, Lymphocytes % (Manual) 16, Monocytes % (Manual) 2, Eosinophils % (Manual) 1, Platelet Estimate Normal, RBC Morphology Normal, Sodium 137, Potassium 3.6, Chloride 105, Carbon Dioxide 27, Anion Gap 8.6, BUN 9, Creatinine 0.60, Estimated Creat Clear 129, Estimated GFR 123, Est GFR ( Amer) 149, Glucose 105 H, Calcium 9.4, Magnesium 1.6, Total Bilirubin 0.4, AST 41 H, ALT 16, Alkaline Phosphatase 46, Total Protein 7.0, Albumin 4.4, Globulin 2.6, Albumin/Globulin Ratio 1.7, Lipase 52 Orders (Tests/Meds): ED MEDICATIONS Discontinued Medications Generic Name Dose Route Start Last Admin Trade Name Freq PRN Reason Stop Dose Admin Lactated Ringer's 1,000 mls @ 999 mls/hr 09/28/24 12:07 09/28/24 12:24 Lactated Ringer's 1000 Ml Bag IV 09/28/24 13:07 999 mls/hr .Q1H1M ONE Administration Promethazine HCl 12.5 mg 09/28/24 12:07 09/28/24 12:23 Promethazine Hcl 12.5mg Tablet PO 09/28/24 12:08 12.5 mg ONCE ONE Administration ORDERS Category Date Time Status Complete Blood Count Auto Diff Stat Lab 09/28/24 12:19 Completed Comprehensive Metabolic Panel Stat Lab 09/28/24 12:19 Completed Lipase Stat Lab 09/28/24 12:19 Completed Magnesium Stat Lab 09/28/24 12:19 Completed Urinalysis and Microscopic Stat Lab 09/28/24 12:00 Completed Urine , HCG Qual. Stat Lab 09/28/24 12:00 Completed ECG Data Tracing #1: I reviewed this ECG and interpreted as documented below: Sinus bradycardia. No ST elevation or depression. QTc normal at 396 Medical Decision Narrative: 24-year-old female presents emergency department with nausea vomiting diarrhea for 5 days, differential diagnose include but not limited to, gastroenteritis, gastritis, GERD, acute UTI, colitis, ileitis, cardiac arrhythmia, electrolyte disturbance, pancreatitis, physiologic among others. I discussed this patient's case with the attending physician Will obtain basic laboratory studies, EKG, lipase level, magnesium level, UA, urine hCG, will give 1 L LR IV, and 12.5 mg of promethazine p.o. as p.o. challenge as well as antiemetic. As patient is already tried Zofran with little no relief of her symptomatology today. CBC notable for thrombocytopenia at 126 otherwise unremarkable CMP is noted for minimal AST elevation of 41, negative lipase and otherwise unremarkable CBC Urine hCG qualitative negative UA is notable for 3+ hematuria, 1+ proteinuria, negative leukocyte esterase, negative nitrites, 35 squamous epithelial cells, 10-20 RBCs, 35 WBCs, 1+ urine mucus and trace bacteria. Reexamination of the patient at approximately 1:10 PM, patient is tolerating p.o. intake with crackers and p.o. Phenergan, as well as p.o. liquids, patient is otherwise hemodynamically stable, no electrolyte discrepancies, discussed all results with her at the bedside, most likely viral gastroenteritis versus other viral illness in the setting of recent exposure to children elevated AST and clinical symptomatology. Patient was given strict ED return precautions. Patient voiced understanding and agreement with the current treatment plan/discharge plan. Patient had benign abdominal exam, no abdominal tenderness no guarding no rebound tenderness, I will prescribe the patient 12 mg p.o. Phenergan as needed for nausea and vomiting, discussed patient will need to take this or Zofran, do not take both at the same time, as Zofran provided little to no relief to her symptomatology. I was consulted by the EDMUNDO, and we discussed the complexity of the problems being addressed. I approve the treatment and management plan for this patient's care in the emergency department, thus performing a substantive portion of the medical decision making. Rolly Zamorano MD Critical Care <MAIKOL Patterson - Last Filed: 09/28/24 13:18> Critical Care Time Critical Care Time: No
[2024-09-28 12:10] LABS: Microscopic, Urine URINE MICROSCOPIC (MICROSCOPIC)
[2024-09-28 12:13] VITALS: BP 109/67; PULSE 73; RESP 20; TEMP 36.7; O2SAT 98; BMI 21.4
--- OUTSIDE RECORDS SUMMARY | 2024-09-28 12:13 | XMS_ITS | Patient Health Record ---
Author Organization [facility] Address [address] [facility] [address] [place] [address] Care Team Providers Care Inbound Customer Service Agent Name Role Phone Jessy Sullivan Unavailable [phone] Reason For Referral No Information Problems Problem Type SNOMED Code ICD Code Onset Dates Problem Status W/U Status Risk Notes Problem Supervision of other normal , second trimester (Z34.82) 1 Active confirmed Supervision of other normal , second trimester Plan Of Treatment No Information Medical (General) History Medical History History ICD Code Acid reflux Anxiety Asthma Stillbirth MENSTR FLOW: Heavy pyridoxine (vitamin B6) 50 mg tablet vitamin #49-iron-FA Unisom (doxylamine) 25 mg tablet Surgical History Surgery Date(Month/Year) N/A
--- OUTSIDE RECORDS SUMMARY | 2024-09-28 12:13 | XMS_ITS | Clinical Summary ---
Author Organization [facility] Address [address] [place] [id number] Care Team Providers Care Creative/Art Director Name Role Phone Provider, No Known Primary Care Provider Unavail able Allergies Active Allergy Reactions Criticality Noted Date Comments Penicillins Hives 10/10/2020 Medications Vit-Fe Fumarate-FA ( ) 27-1 MG tablet tablet Take 1 tablet by mouth Daily. Active doxylamine (UNISOM) 25 MG tablet Take 25 mg by mouth At Night As Needed for Nausea. Active vitamin B-6 (PYRIDOXINE) 25 MG tablet Take 25 mg by mouth At Night As Needed. Active esomeprazole (nexIUM) 20 MG capsule Take As Directed. Active ondansetron ODT (ZOFRAN-ODT) 4 MG disintegrating tablet Take As Directed. Active promethazine (PHENERGAN) 12.5 MG tablet Take As Directed. Active Active Problems Problem Noted Date Diagnosed Date Previous stillbirth or demise, antepartum 2020 10/10/2020 Resolved Problems Problem Noted Date Diagnosed Date Resolved Date Marginal placenta previa 11/24/2020 Social History Tobacco Use Types Packs/Day Years Used Date Smoking Tobacco: Never Smokeless Tobacco: Never Tobacco Cessation:Counseling Given: No Alcohol Use Standard Drinks/Week Comments Never 0 (1 standard drink = 0.6 oz pur e alcohol) AUDIT-C Answer Date Recorded Q1: How often do you have a drink containing alc ohol? Never 11/24/2020 Average Number of Drinks Not on file 021 Frequency of Binge Drinking Not on file 02/2020 Abuse Screen Answer Date Recorded Unsafe at Home or Work/School Not on file Feels Threatened by Someone? Not on file Does Anyone Keep You from Co ntacting Others or Doint Things Outside the Home? Not on file 12/06/2022 Physical Sign of Abuse Present Not on file 1 Housing Stability Answer Date Recorded Current Living Arrangements Not on file 11/24 Potentially Unsafe Housing Conditions Not on alo e 12/06/2022 Family and Community Support Answer Vic e Recorded Help with Day-to-Day Activities Not on file 12/06/2022 Lonely or Isolated Not on file 12/06/2022 Employment Answer Date Recorded Do you want help finding or keeping work or a tai b? Not on file 12/06/2022 Disabilities Answer Date Recorded Concentrating, Remembering, or Making Decisions Difficulty Not on file 12/06/2022 Doing Errands Independently Difficulty Not on fi le 12/06/2022 Education Answer Date Recorded Help with school or training? Not on file Preferred Language Not on file 12/06/2022 Comments No Sex and Gender Information Value Date Recorded Sex Assigned at Not on file Legal Sex Female 9:03 AM EDT Gender Identity Not on file Sexual Orientation Not on file Last Filed Vital Signs Vital Sign Reading Time Taken Comments Blood Pressure 133/68 02/09/2021 9:33 AM EST Pulse 98 02/09/2021 9:33 AM EST Temperature - - Respiratory Rate - - Oxygen Saturation - - Inhaled Oxygen Concentration - - Weight 70.2 kg (154 lb 12.8 oz) 02/09/2021 9:33 AM EST Height 160.7 cm (5' 3.25 ) 10/10/2020 1 1:48 AM EDT Body Mass Index 27.21 10/10/2020 11:48 AM EDT Plan of Treatment Health Maintenance Due Date Last Done Comments Annual Gynecologic Pelvic an d Breast Exam 2000 ANNUAL PHYSICAL 10/10/2020 HEPATITIS C SCREENING 10/10/2020 PAP SMEAR 2021 COVID-19 Vaccine (2023-2 5 season) 2023 INFLUENZA VACCINE 11/24/2024 TDAP/TD VACCINES (3 - Td or Tdap) 02/13/2030 02/14/2020, 01/02/2012 HPV VACCINES Completed 07/02/2012, 02/27/2012, 01/02/2012 MENINGOCOCCAL B VACCINE Aged Out No l onger eligible based on patient's age to complete this topic Pneumococcal Vaccine 0-49 Aged Out No longer eligible based on patient's age to complete this topic Insurance [facility] Care Teams Creative/Art Director Relationship Specialty Start Date End Date Provider, No Known [facility] [place] [address] PCP - General 09/26/20
[2024-09-28] MEDS: PROMETHAZINE HCL 12.5MG TABLET 12.5 MG PO (12:23)
[2024-09-28] MEDS: LACTATED RINGERS 1000ML 1,000 ML 999 ML IV (12:24)
[2024-09-28 12:25] LABS: Bilirubin,Urine Negative (Negative); Color,Urine YELLOW (Yellow); Glucose,Urine (UA) Negative (Negative); Ketones,Urine Negative (Negative); Leukocyte Esterase,Urine Negative (Negative); PH,Urine 6.0 (5.0-8.5); Protein,Urine 1+ (Negative); Specific Gravity, Urine <= 1.005 (1.005-1.030); Urobilinogen,Urine 0.2 EU/dl (0.2)
[2024-09-28 12:26] LABS: Hematocrit 42.8 % (37.0-47.0); Hemoglobin 14.6 g/dL (12.2-16.2); Immature Granulocytes % 0.2 %; Mean Corpuscular HGB Conc 34.1 g/dL (31.8-35.4); Mean Corpuscular Hemoglobin 30.3 pg (27.0-31.2); Mean Corpuscular Volume 88.8 fl (81-99); Nucleated Red Blood Cells % 0 %; Platelet Count 126 K/mm3 (142-424); Red Blood Count 4.82 M/mm3 (4.20-5.40); Red Cell Distribution Width-SD 39.3 fL; White Blood Count 4.7 K/mm3 (4.8-10.8)
--- NOTE | 2024-09-28 12:35 | ECG_ITS ---
APPROVED REPORT Exam: Resting ECG HR:54 bpm ECG Measurements Heart Rate 54 AXES DE 118 P 17 QRSd 105 QRS 68 QT 411 T 55 QTc 396 Conclusion SINUS BRADYCARDIA WITH SHORT DE INTERVAL INCOMPLETE RIGHT BUNDLE BRANCH BLOCK [90+ ms QRS DURATION, TERMINAL R IN V1/V2, 40+ ms S IN I/aVL/V4/V5/V6] BORDERLINE ECG UNCONFIRMED REPORT Electronically signed by : JHONNY RECINOS, 09/29/2024 08:49:19
[2024-09-28 12:44] LABS: Alanine Aminotransferase 16 U/L (12-78); Albumin Level 4.4 g/dl (3.5-5.0); Albumin/Globulin Ratio 1.7 (1.1-1.8); Alkaline Phosphatase 46 U/L (38-126); Anion Gap 8.6 mEq/L (5-15); Aspartate Amino Transferase 41 U/L (14-36); Bilirubin,Total 0.4 mg/dl (0.2-1.3); Blood Urea Nitrogen 9 mg/dl (7-17); Calcium 9.4 mg/dl (8.4-10.2); Carbon Dioxide 27 mmol/L (22.0-30.0); Chloride 105 mmol/L (98-107); Creatinine Clearance Estimated 129 mL/min (50-200); Creatinine,Serum 0.60 mg/dl (0.52-1.04); Estimated Glomerular Filt Rate 123 ml/min (>60); GFR (African American) 149 ML/MIN (>60); Globulin 2.6 g/dL (1.3-3.2); Glucose 105 mg/dl (74-100); Lipase 52 U/L (23-300); Magnesium 1.6 mg/dl (1.6-2.3); Potassium 3.6 mmoL/L (3.5-5.1); Sodium 137 mmol/L (136-145); Total Protein,Serum 7.0 g/dl (6.3-8.2)
[2024-09-28 12:52] LABS: Urine Pregnancy, HCG Qual. Negative (Negative)
[2024-09-28 12:55] LABS: Total Cells Counted 100
[2024-09-28 12:56] LABS: RBC Morphology Normal
[2024-09-28 13:09] LABS: Bacteria,Urine Trace /lpf
[2024-09-28 13:10] LABS: Mucus,Urine 1+ /lpf
[2024-09-28 13:27] VITALS: BP 121/76; PULSE 80; RESP 20; TEMP 36.8; O2SAT 98
== END 2024-09-28 13:28 | disposition home or self-care (01) ==
PROVIDERS: Physician Assistant; Emergency Provider Student in an Organized Health Care Education/Training Program; PCP Family Medicine
DX: R10.84 Generalized abdominal pain (principal); R11.2 Nausea with vomiting, unspecified; R19.7 Diarrhea, unspecified
CPT/HCPCS: 80053; 81001; 81025; 83690; 83735; 85007; 85025; 85027; 93005; 96360; 99285; J7120

== ENCOUNTER 2024-10-05 08:45 | Emergency (ER) | payer OTHER, SELFPAY ==
--- OUTSIDE RECORDS SUMMARY | 2024-10-05 08:54 | XMS_ITS | Clinical Summary ---
Author Organization [facility] Address [address] [place] [id number] Care Team Providers Care Harbor Master Name Role Phone Provider, No Known Primary [...] patient's age to complete this topic Insurance [facility] Care Teams Harbor Master Relationship Specialty Start Date End Date Provider, No Known [facility] [place] [address] PCP - General 09/26/20
--- OUTSIDE RECORDS SUMMARY | 2024-10-05 08:54 | XMS_ITS | Patient Health Record ---
Author Organization [facility] Address [address] [facility] [place] [address] Care Team Providers Care Pediatrician Name Role Phone Jessy Sullivan Unavailable [phone] Reason For Referral No Information Problems Problem [...]
--- NOTE | 2024-10-05 08:57 | PC.NURSE ---
Patients Urine was sent to lab.
[2024-10-05 08:58] LABS: Microscopic, Urine URINE MICROSCOPIC (MICROSCOPIC)
[2024-10-05 09:00] LABS: Color,Urine YELLOW (Yellow); Glucose,Urine (UA) Negative (Negative); Ketones,Urine TRACE (Negative); Leukocyte Esterase,Urine Negative (Negative); PH,Urine 6.5 (5.0-8.5); Protein,Urine 2+ (Negative); Specific Gravity, Urine 1.025 (1.005-1.030); Urobilinogen,Urine 2.0 EU/dl (0.2)
[2024-10-05 09:07] VITALS: BP 132/86; PULSE 97; RESP 12; TEMP 36.8; O2SAT 100; BMI 21.4
[2024-10-05 09:08] LABS: Bilirubin,Urine 1+ (Negative)
--- NOTE | 2024-10-05 09:09 | PC.NURSE ---
DR HERRERA AT BEDSIDE
[2024-10-05 09:15] VITALS: BP 132/86; PULSE 97; RESP 12; TEMP 36.8; O2SAT 100
[2024-10-05 09:16] LABS: Bacteria,Urine 1+ /lpf
--- NOTE | 2024-10-05 09:24 | ED_ITS ---
Discharge Plan Disposition Patient Disposition: Home, Self-Care Prescriptions Prescriptions: New promethazine 25 mg tablet 25 mg PO TID PRN (Reason: nausea and vomiting) 5 Days Qty: 20 0RF ondansetron 4 mg tablet,disintegrating 4 mg PO Q6H PRN (Reason: nausea and vomiting) 5 Days Qty: 20 0RF No Action norethindrone-e.estradiol-iron [03/15 (28)] 1 mg-20 mcg (21)/75 mg (7) tablet 1 tab PO DAILY Qty: 84 0RF ibuprofen 800 mg tablet 800 mg PO Q8H PRN (Reason: pain) Qty: 20 0RF hydrocodone-acetaminophen 5-325 mg tablet 1 tab PO Q6H PRN (Reason: pain) Qty: 10 0RF promethazine 12.5 mg tablet 12.5 mg PO TID PRN (Reason: allergy symptoms) Qty: 14 0RF Rx Instructions: 3 doses during day; last dose no later than 4 hr before bedtime Referrals Follow up/Referrals: Leonie Jung [Primary Care Provider, Medical] - See instructions Nilo Rivas II, MD [Staff Physician, Gastroenterology] - See instructions Activity Restrictions/Add. Instructions Additional Instructions/Restrictions: As discussed no emergent medical condition identified today you are not profoundly dehydrated or having ongoing significant symptoms. Given the fact that this is chronic and cyclical this is consistent with cannabinol hyperemesis as we discussed. In order for this to get better you must have complete cessation of cannabis this is the only proven here. Your symptoms should resolve within weeks of today's but it could take months for full recovery. I have also recommended that you follow-up with Dr. Rivas as you need an EGD to make sure is not an alternative explanation which is unlikely. Clinical Impressions Clinical Impression: Cannabinoid hyperemesis syndrome Instructions Patient Instructions: DI for Acute Abdominal Pain Print Language Print Language: Albanian Discharge ED Provider: Michelle Hubbard General Adult HPI General Chief complaint: Abdominal Pain Stated complaint: abdomen pain Time Seen by Provider: 10/05/24 09:05 Mode of Arrival: Ambulatory Source of Information: Patient Description of Symptoms (Recalled from ER Triage Doc. by RN): pt presents to the ED with abdominal pain x3 weeks. pt was seen in the ED last week and was told they thought it was a 24 hour virus . pt reports that she has attacks where she gets dizzy, vomiting and has severe abdominal pain. pt hasn't had diarrhea since last week. No recent fevers noted. Denies shortness of breath and chest pain. History of Present Illness HPI narrative: Patient is a 24-year-old female presenting today with cyclical symptoms which have been ongoing for years. Patient states has been to the ED multiple times for this in the past has been diagnosed with cannabinol hyperemesis. She states that she has intermittent episodes of discomfort in her abdomen associate with nausea and vomiting and she has symptoms that go away until she takes a shower or hot bath or finishes vomiting. At which point her episodes resolved. She believed that her symptoms today are consistent with colitis however she states she is never had an endoscopy and had a colonoscopy but nobody is ever looked at her stomach in particular. No melena hematochezia hematemesis etc. States that she has been vomiting prior to arrival but she is better at the moment. She states that she typically gets better with Zofran and or Phenergan at home. Did have capsaicin cream in the past with 20 episodes she believes at at which point her symptoms did resolve but she states that the pain was so uncomfortable that she did not like that treatment. Related Data Previous Rx's ?Medication ?Instructions ?Recorded hydrocodone 5 mg-acetaminophen 325 1 tab PO Q6H PRN pa in #10 tabs 08/16/24 mg tablet ibuprofen 800 mg tablet 800 mg PO Q8H PRN pain #20 t abs 08/16/24 norethindrone 1 mg-ethinyl 1 tab PO DAILY #84 tabs 12/18 estradiol 20 mcg (21)-iron 75 mg (7) tablet (03/15 (28)) promethazine 12.5 mg tablet 12.5 mg PO TID PRN allergy 09/28/24 symptoms #14 tabs ondansetron 4 mg disintegrating 4 mg PO Q6H PRN nausea and 10/05/24 tablet vomiting 5 days #20 tabs promethazine 25 mg tablet 25 mg PO TID PRN nausea and 10/05/24 vomiting 5 days #20 tabs Allergies Allergy/AdvReac Type Severity Reaction Status Date / Time Penicillins Allergy Hives Verified 09/02/24 13:36 [facility] Disclaimer: The information contained in this section may have been updated after the patient was seen, as this information can be updated by other users. 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: No Exposure to someone with infectious disease in past 14 days?: No Do you have a fever (greater than 100.4 F or 38 C)?: No Have you tested positive for COVID-19?: No Exposed to someone with COVID-19 in past 14 days?: No Do you have a sore throat?: No Do you have a cough?: No Do you have any weakness?: No Do you have any diarrhea?: No Are you experiencing any unusual bleeding?: No Do you have any muscle aches/pain?: No Do you have any abdominal pain?: No Are you experiencing loss of taste or smell?: No Other Medical History Have you received the Flu Vaccine for this season: No Have you received the Pneumonia Vaccine: No ROS Obtained: Yes All systems reviewed & no additional complaints except as documented Physical Exam General General appearance: alert Respiratory Respiratory exam: Present normal lung sounds bilaterally Cardiovascular Cardiovascular exam: Present regular rate and normal rhythm Abdominal Exam Abdominal exam: Present soft; Absent distention or tenderness Neurological Exam Neurological exam: Present alert and oriented X3 Medical Decision Making Medical Records Screening: Per USPSTF and CDC recommendations, given the prevalence of disease in our region, it is our hospital?s policy to screen for HIV and viral Hepatitis for all patients aged 18 and over and those with ongoing risk factors. [place] Inquiry Pt receiving controlled substance: No Vital Signs: 10/05/24 09:07 10/05/24 09:15 Temperature 98.3 F 98.3 F Temperature Source Oral Oral Pulse Rate 97 H Pulse Rate [Right] 97 H Respiratory Rate 12 12 Blood Pressure 132/86 Blood Pressure [Right Arm] 132/86 Blood Pressure Mean [Right Arm] 101 Blood Pressure Source Automatic Cuff Blood Pressure Source [Right Arm] Automatic Cuff Blood Pressure Position Supine Blood Pressure Position [Right Arm] Supine 02 Sat by Pulse Oximetry 100 100 Oxygen Delivery Method Room Air Room Air Lab Data Lab results reviewed: Yes I reviewed the patient's lab results. Lab Results 10/05/24 08:51: Urine Color Yellow, Urine Appearance Clear, Urine pH 6.5, Ur Specific [place] 1.025, Urine Protein 2+ A, Urine Glucose (UA) Negative, Urine Ketones Trace, Urine Blood 2+ A, Urine Nitrate Negative, Urine Bilirubin 1+ A, Urine Urobilinogen 2.0, Ur Leukocyte Esterase Negative, Urine RBC 3-5, Urine WBC 3-5, Ur Squamous Epith Cells 3-5, Urine Bacteria 1+ Orders (Tests/Meds): ED MEDICATIONS Discontinued Medications Generic Name Dose Route Start Last Admin Trade Name Rachel PRN Reason Stop Dose Admin Promethazine HCl 25 mg 10/05/24 09:18 Promethazine 25mg Tablet PO 10/05/24 09:19 ONCE ONE ORDERS Category Date Time Status UA [Urinalysis and Microscopic] Stat Lab 10/05/24 08:51 Completed Medical Decision Narrative: Patient with above history and physical. Of note patient had a urinalysis that was performed in triage she is on her period she has not blood in her urine but does not have any symptoms of urinary tract infection will not proceed any further with that evaluation. Her symptoms today are consistent with cannabinol hyperemesis she is had the symptoms for years she does smoke weed chronically and has a benign abdominal exam today and is well-hydrated on my exam. I do not believe that she needs more emergent intervention at the moment. I advised that she follow-up with Dr. Rivas to get an endoscopy to make sure it is not an alternative explanation for her symptoms. I also advised that she have complete cessation of cannabinol use. She was given a new prescription of Zofran and Phenergan. She was discharged in stable condition with advised to follow-up with gastroenterology and return with any significant worsening of her symptoms. Critical Care Critical Care Time Critical Care Time: No
[2024-10-05] MEDS: PROMETHAZINE 25MG TABLET 25 MG PO (09:25)
[2024-10-05 09:29] VITALS: BP 113/63; PULSE 95; RESP 13; TEMP 36.9; O2SAT 100
== END 2024-10-05 09:33 | disposition home or self-care (01) ==
PROVIDERS: Emergency Provider Student in an Organized Health Care Education/Training Program; PCP Family Medicine
DX: R10.9 Unspecified abdominal pain (principal); R11.15 Cyclical vomiting syndrome unrelated to migraine; F12.188 Cannabis abuse with other cannabis-induced disorder; F17.210 Nicotine dependence, cigarettes, uncomplicated
CPT/HCPCS: 81001; 99283